=== PATIENT | male | born 1945 | race Caucasian/White ===

== ENCOUNTER 2016-06-16 19:57 | Inpatient (IN) | payer MEDICARE ==
[2016-06-16] MEDS ORDERED: RX INFO: IV CONTRAST WAS GIVEN 1 EACH MISC MISCELLANE PRN (20:21)
[2016-06-16] MEDS ORDERED: SODIUM CHLORIDE 0.9% 1,000 ML IV STA (20:21)
[2016-06-16] MEDS ORDERED: SODIUM CHLORIDE 0.9% 500 ML IV STA (20:21)
[2016-06-16 20:40] LABS: Anisocytosis Slight; Aty Lym Flag Slight; Basophils % (A) 1 %; CH 19.5; CHCM 27.5; Eosinophils # (A) 0.2 k/uL (0-0.7); Eosinophils % (A) 5 %; HCT 29.8 % (39.0-53.0); HDW 3.52; HGB 8.3 gm/dL (13.0-17.5); Hypochromasia Marked; Luc % (Auto) 5; Lymphocytes # (A) 1.1 k/uL (1.0-4.8); Lymphocytes % (A) 26 %; MCH 19.9 pg (25.0-35.0); MCV 71.3 fL (80.0-100.0); Mean Platelet Volume 7.9; Microcytosis Moderate; Monocytes # (A) 0.4 k/uL (0-1.0); Monocytes % (A) 9 %; Neutrophils # (A) 2.2 k/uL (1.3-7.7); Neutrophils % (A) 54 %; Poikilocytosis Slight; RBC 4.17 m/uL (4.30-5.90); RDW 17.1 % (11.5-15.5); WBC 4.1 k/uL (3.8-10.6); WBC (Perox) 4.36
[2016-06-16 20:43] LABS: MCHC 27.9 g/dL (31.0-37.0)
[2016-06-16 20:45] LABS: ALT 24 U/L (21-72); AST 17 U/L (17-59); Alkaline Phosphatase 64 U/L (38-126); Anion Gap 13 mmol/L; Blood Urea Nitrogen 19 mg/dL (9-20); Carbon Dioxide 24 mmol/L (22-30); Chloride 107 mmol/L (98-107); Glucose 86 mg/dL (74-99); Magnesium 2.1 mg/dL (1.6-2.3); Non-African American GFR(MDRD) >60 (>60 ml/min/1.73 sqM); Phosphorous 3.1 mg/dL (2.5-4.5); Sodium 144 mmol/L (137-145); Total Bilirubin 0.5 mg/dL (0.2-1.3); Total Protein 6.8 g/dL (6.3-8.2)
[2016-06-16 21:05] LABS: Creatine Kinase 39 U/L (55-170)
[2016-06-16 21:08] LABS: INR 1.3 (<1.1); Prothrombin Time 12.5 sec (9.0-12.0)
--- NOTE | 2016-06-16 21:15 | ED ---
General Adult HPI - General Chief complaint: Syncope Stated complaint: syncope Time Seen by Provider: 06/16/16 19:59 Source: EMS, RN notes reviewed, old records reviewed Mode of arrival: EMS Limitations: no limitations - History of Present Illness Initial comments: This is a 7-year-old male ER for evaluation of syncopal event. Syncopal week. This happened all patient was then grocery store, became shortness or breath back pain and then became very weak and passed out the ground. Did not completely lose consciousness not his had no trauma from fall. Patient is mildly out of it, patient take from family - Related Data Home Medications Medication Instructions Recorded Confirmed Cholecalciferol [Vitamin D3] 2,000 unit PO HS 01/03/16 06/16/16 Dutasteride [Avodart] 0.5 mg PO HS 01/03/16 06/16/16 Lisinopril [Zestril] 5 mg PO HS 01/03/16 06/16/16 Simvastatin [Zocor] 20 mg PO HS 01/03/16 06/16/16 L.acidoph,Paracasei, B.lactis 1 cap PO HS 06/16/16 06/16/16 [Probiotic] Lactulose 10 gm PO DAILY PRN 06/16/16 06/16/16 Allergies Allergy/AdvReac Type Severity Reaction Status Date / Time No Known Allergies Allergy Verified 06/16/16 20:23 Review of Systems ROS Statement: Those systems with pertinent positive or pertinent negative responses have been documented in the HPI. ROS Other: All systems not noted in ROS Statement are negative. Past Medical History Past Medical History: Hyperlipidemia, Hypertension Additional Past Medical History / Comment(s): chronic back pain History of Any Multi-Drug Resistant Organisms: None Reported Past Surgical History: No Surgical Hx Reported Past Psychological History: No Psychological Hx Reported Smoking Status: Never smoker Past Alcohol Use History: Rare Past Drug Use History: None Reported General Exam - General Exam Comments Initial Comments: Pale Limitations: no limitations General appearance: alert, in no apparent distress, anxious, lethargic Head exam: Present: atraumatic, normocephalic, normal inspection Eye exam: Present: normal appearance, PERRL, EOMI. Absent: scleral icterus, conjunctival injection, periorbital swelling ENT exam: Present: normal exam, mucous membranes moist Neck exam: Present: normal inspection. Absent: tenderness, meningismus, lymphadenopathy Respiratory exam: Present: normal lung sounds bilaterally. Absent: respiratory distress, wheezes, rales, rhonchi, stridor Cardiovascular Exam: Present: regular rate, normal rhythm, normal heart sounds. Absent: systolic murmur, diastolic murmur, rubs, gallop, clicks GI/Abdominal exam: Present: soft, normal bowel sounds. Absent: distended, tenderness, guarding, rebound, rigid Extremities exam: Present: normal inspection, full ROM, normal capillary refill. Absent: tenderness, pedal edema, joint swelling, calf tenderness Back exam: Present: normal inspection Neurological exam: Present: alert, oriented X3, CN II-XII intact Psychiatric exam: Present: normal affect, normal mood Skin exam: Present: warm, dry, intact, normal color. Absent: rash Course Vital Signs 06/16/16 06/16/16 20:13 22:20 Temperature 97.5 F L Pulse Rate 72 77 Respiratory 18 18 Rate Blood Pressure 103/62 168/79 O2 Sat by Pulse 94 L 100 Oximetry - Reevaluation(s) Reevaluation #1: 06/16/16 23:23 She has no significant improvement in clinical condition EKG Findings - EKG Comments: EKG Findings:: EKG shows sinus rhythm at 72, MI 13, QRS 78, QTC 405 Medical Decision Making - Medical Decision Making 7 emailed ER for evaluation of near syncopal syncopal event, patient had an episode of weakness and went to his feet while trying to walk in the store. Patient has history of weakness from recent, also found to be anemic, no blood in the stools, no dark tarry stools. Patient will be admitted for evaluation of anemia, syncope - Lab Data Result diagrams: 06/16/16 20:08 06/16/16 20:08 Lab Results 06/16/16 06/16/16 06/16/16 Range/Units 20:08 20:08 20:08 WBC 4.1 (3.8-10.6) k/uL RBC 4.17 L (4.30-5.90) m/uL Hgb 8.3 L (13.0-17.5) gm/dL Hct 29.8 L (39.0-53.0) % MCV 71.3 L (80.0-100.0) fL MCH 19.9 L (25.0-35.0) pg MCHC 27.9 L (31.0-37.0) g/dL RDW 17.1 H (11.5-15.5) % Plt Count 199 (150-450) k/uL Neutrophils % 54 % Lymphocytes % 26 % Monocytes % 9 % Eosinophils % 5 % Basophils % 1 % Neutrophils # 2.2 (1.3-7.7) k/uL Lymphocytes # 1.1 (1.0-4.8) k/uL Monocytes # 0.4 (0-1.0) k/uL Eosinophils # 0.2 (0-0.7) k/uL Basophils # 0.0 (0-0.2) k/uL Hypochromasia Marked Poikilocytosis Slight Anisocytosis Slight Microcytosis Moderate PT (9.0-12.0) sec INR (<1.1) APTT (22.0-30.0) sec D-Dimer (<0.60) mg/L FEU Sodium 144 (137-145) mmol/L Potassium 4.0 (3.5-5.1) mmol/L Chloride 107 (98-107) mmol/L Carbon Dioxide 24 (22-30) mmol/L Anion Gap 13 mmol/L BUN 19 (9-20) mg/dL Creatinine 0.90 (0.66-1.25) mg/dL Est GFR (MDRD) Af Amer >60 (>60 ml/min/1.73 sqM) Est GFR (MDRD) Non-Af >60 (>60 ml/min/1.73 sqM) Glucose 86 (74-99) mg/dL Calcium 9.0 (8.4-10.2) mg/dL Phosphorus 3.1 (2.5-4.5) mg/dL Magnesium 2.1 (1.6-2.3) mg/dL Total Bilirubin 0.5 (0.2-1.3) mg/dL AST 17 (17-59) U/L ALT 24 (21-72) U/L Alkaline Phosphatase 64 (38-126) U/L Total Creatine Kinase 39 L (55-170) U/L CK-MB (CK-2) 0.5 (0.0-2.4) ng/mL CK-MB (CK-2) Rel Index 1.3 Troponin I <0.012 (0.000-0.034) ng/mL NT-Pro-B Natriuret Pep pg/mL Total Protein 6.8 (6.3-8.2) g/dL Albumin 4.2 (3.5-5.0) g/dL Urine Color Urine Appearance (Clear) Urine pH (5.0-8.0) Ur Specific [place] (1.001-1.035) Urine Protein (Negative) Urine Glucose (UA) (Negative) Urine Ketones (Negative) Urine Blood (Negative) Urine Nitrate (Negative) Urine Bilirubin (Negative) Urine Urobilinogen (<2.0) mg/dL Ur Leukocyte Esterase (Negative) Blood Type Blood Type Confirm Blood Type Recheck Antibody Screen Spec Expiration Date 06/16/16 06/16/16 06/16/16 Range/Units 20:08 20:08 21:16 WBC (3.8-10.6) k/uL RBC (4.30-5.90) m/uL Hgb (13.0-17.5) gm/dL Hct (39.0-53.0) % MCV (80.0-100.0) fL MCH (25.0-35.0) pg MCHC (31.0-37.0) g/dL RDW (11.5-15.5) % Plt Count (150-450) k/uL Neutrophils % % Lymphocytes % % Monocytes % % Eosinophils % % Basophils % % Neutrophils # (1.3-7.7) k/uL Lymphocytes # (1.0-4.8) k/uL Monocytes # (0-1.0) k/uL Eosinophils # (0-0.7) k/uL Basophils # (0-0.2) k/uL Hypochromasia Poikilocytosis Anisocytosis Microcytosis PT 12.5 H (9.0-12.0) sec INR 1.3 (<1.1) APTT 20.1 L (22.0-30.0) sec D-Dimer 0.43 (<0.60) mg/L FEU Sodium (137-145) mmol/L Potassium (3.5-5.1) mmol/L Chloride (98-107) mmol/L Carbon Dioxide (22-30) mmol/L Anion Gap mmol/L BUN (9-20) mg/dL Creatinine (0.66-1.25) mg/dL Est GFR (MDRD) Af Amer (>60 ml/min/1.73 sqM) Est GFR (MDRD) Non-Af (>60 ml/min/1.73 sqM) Glucose (74-99) mg/dL Calcium (8.4-10.2) mg/dL Phosphorus (2.5-4.5) mg/dL Magnesium (1.6-2.3) mg/dL Total Bilirubin (0.2-1.3) mg/dL AST (17-59) U/L ALT (21-72) U/L Alkaline Phosphatase (38-126) U/L Total Creatine Kinase (55-170) U/L CK-MB (CK-2) (0.0-2.4) ng/mL CK-MB (CK-2) Rel Index Troponin I (0.000-0.034) ng/mL NT-Pro-B Natriuret Pep 78 pg/mL Total Protein (6.3-8.2) g/dL Albumin (3.5-5.0) g/dL Urine Color Urine Appearance (Clear) Urine pH (5.0-8.0) Ur Specific [place] (1.001-1.035) Urine Protein (Negative) Urine Glucose (UA) (Negative) Urine Ketones (Negative) Urine Blood (Negative) Urine Nitrate (Negative) Urine Bilirubin (Negative) Urine Urobilinogen (<2.0) mg/dL Ur Leukocyte Esterase (Negative) Blood Type A Positive Blood Type Confirm Blood Type Recheck CABO Indicated Antibody Screen NEGATIVE Spec Expiration Date 06/19/2016 3843 06/16/16 06/16/16 Range/Units 22:04 22:18 WBC (3.8-10.6) k/uL RBC (4.30-5.90) m/uL Hgb (13.0-17.5) gm/dL Hct (39.0-53.0) % MCV (80.0-100.0) fL MCH (25.0-35.0) pg MCHC (31.0-37.0) g/dL RDW (11.5-15.5) % Plt Count (150-450) k/uL Neutrophils % % Lymphocytes % % Monocytes % % Eosinophils % % Basophils % % Neutrophils # (1.3-7.7) k/uL Lymphocytes # (1.0-4.8) k/uL Monocytes # (0-1.0) k/uL Eosinophils # (0-0.7) k/uL Basophils # (0-0.2) k/uL Hypochromasia Poikilocytosis Anisocytosis Microcytosis PT (9.0-12.0) sec INR (<1.1) APTT (22.0-30.0) sec D-Dimer (<0.60) mg/L FEU Sodium (137-145) mmol/L Potassium (3.5-5.1) mmol/L Chloride (98-107) mmol/L Carbon Dioxide (22-30) mmol/L Anion Gap mmol/L BUN (9-20) mg/dL Creatinine (0.66-1.25) mg/dL Est GFR (MDRD) Af Amer (>60 ml/min/1.73 sqM) Est GFR (MDRD) Non-Af (>60 ml/min/1.73 sqM) Glucose (74-99) mg/dL Calcium (8.4-10.2) mg/dL Phosphorus (2.5-4.5) mg/dL Magnesium (1.6-2.3) mg/dL Total Bilirubin (0.2-1.3) mg/dL AST (17-59) U/L ALT (21-72) U/L Alkaline Phosphatase (38-126) U/L Total Creatine Kinase (55-170) U/L CK-MB (CK-2) (0.0-2.4) ng/mL CK-MB (CK-2) Rel Index Troponin I (0.000-0.034) ng/mL NT-Pro-B Natriuret Pep pg/mL Total Protein (6.3-8.2) g/dL Albumin (3.5-5.0) g/dL Urine Color Yellow Urine Appearance Clear (Clear) Urine pH 7.5 (5.0-8.0) Ur Specific [place] 1.029 (1.001-1.035) Urine Protein Trace H (Negative) Urine Glucose (UA) Negative (Negative) Urine Ketones Negative (Negative) Urine Blood Negative (Negative) Urine Nitrate Negative (Negative) Urine Bilirubin Negative (Negative) Urine Urobilinogen <2.0 (<2.0) mg/dL Ur Leukocyte Esterase Negative (Negative) Blood Type Blood Type Confirm A Positive Blood Type Recheck Antibody Screen Spec Expiration Date - Radiology Data Radiology results: report reviewed (CTa negative for PE), image reviewed Disposition Clinical Impression: Vasovagal syncope, Anemia Disposition: ADMITTED IP TO THIS [facility] Condition: Fair Referrals: Angle Muniz DO [Primary Care Provider] - 1-2 days
[2016-06-16 21:17] LABS: Creatine Kinase MB 0.5 ng/mL (0.0-2.4); Troponin I <0.012 ng/mL (0.000-0.034)
[2016-06-16 21:21] LABS: Partial Thromboplastin Time 20.1 sec (22.0-30.0)
--- NOTE | 2016-06-16 22:12 | CT ---
EXAMINATION TYPE: CT angio chest DATE OF EXAM: 06/16/2016 9:48 PM COMPARISON: NONE HISTORY: weakness CT DLP: 380.5 mGycm Automated exposure control for dose reduction was used. CONTRAST: CTA scan of the thorax is performed with IV Contrast, patient injected with 100 mL of Omnipaque 350, pulmonary embolism protocol. . FINDINGS: There are 3-D post processed images. The lungs are clear of consolidation. There is no evidence of a pulmonary mass. There is no pleural e ffusion. Heart is enlarged. There is no pericardial effusion. There is no mediastinal adenopathy. There are no hilar masses. I see no filling defects in the pulmon olena arteries. The bony thorax is intact. There is spurring in the thoracic spine. IMPRESSION: NEGATIVE CT ANGIOGRAM OF THE CHEST. NO EVIDENCE OF PULMONARY EMBOLISM. NO EVIDENCE OF AORTIC ANEURYSM OR DISSECTION.
[2016-06-16 22:29] LABS: Appearance,Urine Clear (Clear); Bilirubin,Urine Negative (Negative); Glucose,Urine (UA) Negative (Negative); Ketones,Urine Negative (Negative); Leukocyte Esterase,Urine Negative (Negative); Nitrite,Urine Negative (Negative); PH, Urine 7.5 (5.0-8.0); Protein,Urine Trace (Negative); Specific Gravity,Urine 1.029 (1.001-1.035); UA Billing (MACRO vs. MICRO) CHEM; Urobilinogen,Urine <2.0 mg/dL (<2.0)
[2016-06-16] MEDS ORDERED: ASPIRIN 81 MG CHEW PO STA (23:12)
[2016-06-16] MEDS ORDERED: NITROGLYCERIN SL TABS 0.4 MG TAB SUBLINGUAL PRN (23:12)
[2016-06-17] MEDS: SODIUM CHLORIDE 0.9% 1,000 ML IV SCH ×3 (03:00→22:18)
[2016-06-17 03:25] LABS: Cholesterol 119 mg/dL (<200); HDL Cholesterol 39 mg/dL (40-60); Triglycerides 95 mg/dL (<150)
[2016-06-17 03:32] LABS: Creatine Kinase 38 U/L (55-170)
[2016-06-17 03:38] LABS: % Iron Saturation 7.6 % (20-50)
[2016-06-17 03:46] LABS: Creatine Kinase MB 0.5 ng/mL (0.0-2.4); Troponin I <0.012 ng/mL (0.000-0.034)
[2016-06-17] MEDS ORDERED: INFLUENZA VACCINE (3YR+) 60 MCG/0.5 ML SYRINGE IM ONE (05:31)
[2016-06-17] MEDS ORDERED: LACTULOSE 20 GM/30 ML CUP PO PRN (08:41)
[2016-06-17 08:53] LABS: Anisocytosis Slight; Basophils % (A) 1 %; CH 19.4; Eosinophils # (A) 0.2 k/uL (0-0.7); Eosinophils % (A) 4 %; HCT 27.4 % (39.0-53.0); HDW 3.35; HGB 7.6 gm/dL (13.0-17.5); Hypochromasia Marked; Luc # (Auto) 0.15; Luc % (Auto) 3; Lymphocytes # (A) 1.2 k/uL (1.0-4.8); Lymphocytes % (A) 23 %; MCV 72.3 fL (80.0-100.0); Mean Platelet Volume 7.2; Microcytosis Moderate; Monocytes # (A) 0.4 k/uL (0-1.0); Monocytes % (A) 7 %; Neutrophils # (A) 3.3 k/uL (1.3-7.7); Neutrophils % (A) 63 %; RBC 3.79 m/uL (4.30-5.90); WBC 5.3 k/uL (3.8-10.6); WBC (Perox) 5.68
[2016-06-17 09:00] LABS: MCHC 27.6 g/dL (31.0-37.0)
[2016-06-17] MEDS ORDERED: ENOXAPARIN 40 MG/0.4 ML SYRINGE SQ SCH (09:00)
[2016-06-17] MEDS: ASPIRIN 325 MG TAB PO SCH (09:05)
[2016-06-17 09:08] LABS: ALT 29 U/L (21-72); AST 12 U/L (17-59); Alkaline Phosphatase 63 U/L (38-126); Anion Gap 12 mmol/L; Blood Urea Nitrogen 15 mg/dL (9-20); Calcium 8.8 mg/dL (8.4-10.2); Carbon Dioxide 23 mmol/L (22-30); Chloride 110 mmol/L (98-107); Creatine Kinase 39 U/L (55-170); Glucose 107 mg/dL (74-99); Non-African American GFR(MDRD) >60 (>60 ml/min/1.73 sqM); Sodium 145 mmol/L (137-145); Total Bilirubin 0.3 mg/dL (0.2-1.3); Total Protein 6.1 g/dL (6.3-8.2)
[2016-06-17 09:18] LABS: Creatine Kinase MB 0.5 ng/mL (0.0-2.4); Troponin I <0.012 ng/mL (0.000-0.034)
--- NOTE | 2016-06-17 11:06 | P.HPIM ---
History of Present Illness H&P Date: 06/17/16 Chief Complaint: Near syncopal episode This is a 70-year-old male, patient of Dr. Muniz. He has a known past medical history of hypertension and hyperlipidemia. Yesterday patient was at the grocery store and noted to have significant fatigue and some difficulty with walking. He proceeded to the vestibule area at the grocery store landing answer wall and slid down to a sitting position. He felt that he was going to pass out. Patient did not lose consciousness. Did not have any head injury. Did not hit his head. Denies any chest pain or shortness of breath. Denies any nausea or vomiting. Denies any bowel movement changes. Denies any fevers chills or sweats. Denies any burning with urination prior to admission. Patient was straight cathed in the emergency room to acquire urine specimen. And since then he has noted some burning with urination. On admission he was found to be anemic with a hemoglobin of 8.3. This has dropped to 7.6. He denies any black stools or blood in his stools. He does admit to having issues with constipation and taking medications to help alleviate this and then Coumadin to diarrhea. Patient states he'll go about 3-4 days without a bowel movement. Last colonoscopy was about 3 years ago and was reported normal. Prior to that he had colonoscopy with polyps that were benign. Patient's has never had EGD. Patient's symptoms of fatigue and generalized weakness and unsteady gait have been noticed since December. Patient's gave a lot of the history noting that patient sleeps majority of the day and is very fatigued. She also noted that he has some shuffling and his gait. Patient had a CTA of the chest was negative for PE. EKG is showing sinus rhythm with PVCs. Family history significant for a mom and sister with pernicious anemia. Also he has a brother with history of Parkinson's disease. Patient has been admitted to the regular medical floor for his workup in anemia. Surgical consult for possible colonoscopy. Check stool for occult blood. Patient also was found to be iron deficient. We'll check echo and carotid and rule out any cardiac causes for near syncopal episode. Review of Systems Please refer to HPI otherwise unremarkable Past Medical History Past Medical History: Hyperlipidemia, Hypertension Additional Past Medical History / Comment(s): chronic back pain; cortisone injections for neck pain History of Any Multi-Drug Resistant Organisms: None Reported Past Surgical History: No Surgical Hx Reported Past Psychological History: No Psychological Hx Reported Smoking Status: Never smoker Past Alcohol Use History: Rare Past Drug Use History: None Reported - Past Family History Father Family Medical History: Myocardial Infarction (MD) Mother Additional Family Medical History / Comment(s): Pernicious anemia monitor and sister. Brother with Parkinson's Medications and Allergies Home Medications Medication Instructions Recorded Confirmed Type Cholecalciferol [Vitamin D3] 2,000 unit PO HS 01/03/16 06/16/16 History Dutasteride [Avodart] 0.5 mg PO HS 01/03/16 06/16/16 History Lisinopril [Zestril] 5 mg PO HS 01/03/16 06/16/16 History Simvastatin [Zocor] 20 mg PO HS 01/03/16 06/16/16 History L.acidoph,Paracasei, B.lactis 1 cap PO HS 06/16/16 06/16/16 History [Probiotic] Lactulose 10 gm PO DAILY PRN 06/16/16 06/16/16 History Allergies Allergy/AdvReac Type Severity Reaction Status Date / Time No Known Allergies Allergy Verified 06/16/16 20:23 Physical Exam Vitals: Vital Signs Temp Pulse Pulse Pulse Resp BP BP 06/17/16 07:00 98.1 F 70 20 06/17/16 00:54 97.8 F 68 18 137/85 06/16/16 23:59 68 16 144/67 BP Pulse Ox 06/17/16 07:00 134/71 97 06/17/16 00:54 100 06/16/16 23:59 96 Intake and Output 06/16/16 06/17/16 06/17/16 22:59 06:59 14:59 Intake Total 400 Balance 400 Intake: Intake, IV Titration 400 Amount Sodium Chloride 0.9% 1, 400 000 ml @ 100 mls/hr IV . Q10H [facility] Rx#:[id number] Other: Voiding Method Bedside Commode # Voids 1 # Bowel Movements 0 Weight 87 kg Skin exam patient is very pale. Head normocephalic Neck supple Lungs clear to auscultation bilaterally no wheezing or crackles Heart regular rate and rhythm S1-S2, no rub or gallop Abdomen is soft nontender nondistended positive bowel sounds no hepatosplenomegaly Extremities no edema Neuro alert and orientated to 3 Results CBC & Chem 7: 06/17/16 08:22 06/17/16 08:22 Labs: Abnormal Lab Results - Last 24 Hours (Table) 06/17/16 06/17/16 06/17/16 Range/Units 02:32 02:32 08:22 RBC (4.30-5.90) m/uL Hgb (13.0-17.5) gm/dL Hct (39.0-53.0) % MCV (80.0-100.0) fL MCH (25.0-35.0) pg MCHC (31.0-37.0) g/dL RDW (11.5-15.5) % Chloride (98-107) mmol/L Glucose (74-99) mg/dL AST (17-59) U/L Total Creatine Kinase 38 L 39 L (55-170) U/L Total Protein (6.3-8.2) g/dL HDL Cholesterol 39 L (40-60) mg/dL 06/17/16 06/17/16 Range/Units 08:22 08:22 RBC 3.79 L (4.30-5.90) m/uL Hgb 7.6 L (13.0-17.5) gm/dL Hct 27.4 L (39.0-53.0) % MCV 72.3 L (80.0-100.0) fL MCH 20.0 L (25.0-35.0) pg MCHC 27.6 L (31.0-37.0) g/dL RDW 17.0 H (11.5-15.5) % Chloride 110 H (98-107) mmol/L Glucose 107 H (74-99) mg/dL AST 12 L (17-59) U/L Total Creatine Kinase (55-170) U/L Total Protein 6.1 L (6.3-8.2) g/dL HDL Cholesterol (40-60) mg/dL Thrombosis Risk Factor Assmnt - Choose All That Apply Any of the Below Risk Factors Present?: Yes Each Factor Represents 1 point: Obesity (BMI >25) Other Risk Factors: Yes Each Risk Factor Represents 2 Points: Age 61-74 years Thrombosis Risk Factor Assessment Total Risk Factor Score: 3 Thrombosis Risk Factor Assessment Level: Moderate Risk Assessment and Plan Plan: 1. Near syncopal episode with fatigue and generalized weakness. Possibly related to his anemia however need to rule out cardiac causes. Continue with telemetry monitoring. Check echo and carotid ultrasound. EKG had shown sinus rhythm with PVCs. Computed tomography scan of the chest was negative for PE. 2. Anemia with evidence of iron deficiency anemia. Hemoglobin has dropped to 7.6. Check stool for occult blood. Consult surgical service for possible colonoscopy 3. Burning with urination check UA 4. Essential hypertension we'll resume his lisinopril 5. History of BPH continue with the finasteride 6. Hyperlipidemia resume Lipitor DVT prophylaxis SCDs and GI prophylaxis Pepcid Time with Patient: Greater than 30 (Greater than 50% of the total time spent in counseling and coordination of care.I performed an examination of the patient and discussed their management with the physician Strip Mine Supervisor. I have reviewed the Physician Strip Mine Supervisor's notes and agree with the documented findings and plan of care)
--- NOTE | 2016-06-17 11:49 | ECHOF ---
Referral Reason:syncope MEASUREMENTS -------- HEIGHT: 170.2 cm WEIGHT: 86.6 kg BP: 134/71 RVIDd: 3.0 cm (< 3.3) IVSd: 1.5 cm (0.6 - 1.1) LVIDd: 3.6 cm (3.9 - 5.3) LVPWd: 1.3 cm (0.6 - 1.1) IVSs: 1.9 cm LVIDs: 2.7 cm LVPWs: 2.0 cm LA Diam: 3.6 cm (2.7 - 3.8) LAESV Index (A-L): 21.69 ml/m Ao Diam: 2.6 cm (2.0 - 3.7) AV Cusp: 1.6 cm (1.5 - 2.6) LA Diam: 3.4 cm (2.7 - 3.8) MV EXCURSION: 15.965 mm (> 18.000) MV EF SLOPE: 74 mm/s (70 - 150) EPSS: 0.2 cm MV E [place]: 0.94 m/s MV DecT: 204 ms MV A [place]: 1.03 m/s MV E/A Ratio: 0.91 FINDINGS -------- Sinus rhythm. This was a technically good study. There is moderate concentric left ventricular hypertrophy. Overall left ventricular systolic function is normal with, an EF between 55 - 60 %. The right ventricle is normal in size. Normal LA size by volume 22+/-6 ml/m2. The right atrium is normal in size. Aortic valve is trileaflet and is mildly thickened. Mild mitral annular calcification present. Trace tricuspid regurgitation present. Right ventricular systolic pressure is normal at < 35 mmHg. The aortic root size is normal. There is no pericardial effusion. CONCLUSIONS -------- 1. Sinus rhythm. 2. Trace tricuspid regurgitation present. 3. Right ventricular systolic pressure is normal at < 35 mmHg. 4. The aortic root size is normal. 5. There is no pericardial effusion. 6. This was a technically good study. 7. There is moderate concentric left ventricular hypertrophy. 8. Overall left ventricular systolic function is normal with, an EF between 55 - 60 %. 9. The right ventricle is normal in size. 10. Normal LA size by volume 22+/-6 ml/m2. 11. The right atrium is normal in size. 12. Aortic valve is trileaflet and is mildly thickened. 13. Mild mitral annular calcification present. CHEMISTRY PROFESSOR: Kishan Mathis RDCS
[2016-06-17] MEDS ORDERED: RX INFO: IV CONTRAST WAS GIVEN 1 EACH MISC MISCELLANE PRN (13:35)
--- NOTE | 2016-06-17 13:59 | US ---
EXAMINATION TYPE: US carotid duplex BILAT DATE OF EXAM: 06/17/2016 11:38 AM COMPARISON: NONE CLINICAL HISTORY: syncope. EXAM MEASUREMENTS: RIGHT: Peak Systolic Velocity (PSV) cm/sec ----- Right CCA: 65.8 ----- Right ICA: 80.1 ----- Right ECA: 109.5 ICA/CCA ratio: 1.2 RIGHT: End Diastole cm/sec ----- Right CCA: 18.1 ----- Right ICA: 21.7 ----- Right ECA: 12.4 LEFT: Peak Systolic Velocity (PSV) cm/sec ----- Left CCA: 106.3 ----- Left ICA: 72.8 ----- Left ECA: 72.3 ICA/CCA ratio: 0.7 LEFT: End Diastole cm/sec ----- Left CCA: 22.2 ----- Left ICA: 19.2 ----- Left ECA: 8.5 VERTEBRALS (direction of flow): Right Vertebral: Antegrade Left Vertebral: Antegrade TECHNOLOGIST IMPRESSION: No significant stenosis seen IMPRESSION: No hemodynamic significant stenosis of the proximal internal carotid arteries bilaterall y by Doppler criteria, and indirect measurement of carotid stenosis
[2016-06-17] MEDS ORDERED: SODIUM FERRIC GLUCONAT-SUCROSE 125 MG in SODIUM CHLORIDE 0.9% 100 ML IVPB ONE (14:00)
--- NOTE | 2016-06-17 15:56 | P.GSCN ---
History of Present Illness Consult date: 06/17/16 Reason for Consult: Anemia Requesting physician: Romana Camarena History of present illness: Patient is 70-year-old male, patient of Dr. Muniz in the outpatient setting admitted with symptoms of fatigue and near syncope. On admission patient's hemoglobin was found to be 8.3 dropped to 7.6. No history of melena, hematochezia, or hematemesis. Last colonoscopy approximately 3 years ago reported normal. No history of EGD. Surgical consult requested for anemia. Past Medical History Past Medical History: Hyperlipidemia, Hypertension Additional Past Medical History / Comment(s): chronic back pain; cortisone injections for neck pain History of Any Multi-Drug Resistant Organisms: None Reported Past Surgical History: No Surgical Hx Reported Past Psychological History: No Psychological Hx Reported Smoking Status: Never smoker Past Alcohol Use History: Rare Past Drug Use History: None Reported - Past Family History Father Family Medical History: Myocardial Infarction ([place]) Mother Additional Family Medical History / Comment(s): Pernicious anemia monitor and sister. Brother with Parkinson's Medications and Allergies Home Medications Medication Instructions Recorded Confirmed Type Cholecalciferol [Vitamin D3] 2,000 unit PO HS 01/03/16 06/16/16 History Dutasteride [Avodart] 0.5 mg PO HS 01/03/16 06/16/16 History Lisinopril [Zestril] 5 mg PO HS 01/03/16 06/16/16 History Simvastatin [Zocor] 20 mg PO HS 01/03/16 06/16/16 History L.acidoph,Paracasei, B.lactis 1 cap PO HS 06/16/16 06/16/16 History [Probiotic] Lactulose 10 gm PO DAILY PRN 06/16/16 06/16/16 History Allergies Allergy/AdvReac Type Severity Reaction Status Date / Time No Known Allergies Allergy Verified 06/16/16 20:23 Surgical - Exam Vital Signs Temp Pulse Resp BP Pulse Ox 97.5 F L 72 18 103/62 94 L 06/16/16 20:13 06/16/16 20:13 06/16/16 20:13 06/16/16 20:13 06/16/16 20:13 GENERAL: Pt awake and alert, and in no acute distress. HEAD: Atraumatic, normocephalic. LUNGS: Breath sounds clear to auscultation bilaterally. No wheezes, rales, or rhonchi. HEART: Heart S1, S2, no S3 or S4. Regular rate and rhythm. No murmurs, rubs or gallops. ABDOMEN: Soft, obese, nontender, nondistended, normoactive bowel sounds. No guarding, no rebound. No masses or organomegaly appreciated. NEUROLOGICAL: Pt oriented x 3. Results - Labs 06/17/16 08:22 06/17/16 08:22 Abnormal Lab Results - Last 24 Hours (Table) 06/17/16 06/17/16 06/17/16 Range/Units 02:32 02:32 08:22 RBC (4.30-5.90) m/uL Hgb (13.0-17.5) gm/dL Hct (39.0-53.0) % MCV (80.0-100.0) fL MCH (25.0-35.0) pg MCHC (31.0-37.0) g/dL RDW (11.5-15.5) % Chloride (98-107) mmol/L Glucose (74-99) mg/dL AST (17-59) U/L Total Creatine Kinase 38 L 39 L (55-170) U/L Total Protein (6.3-8.2) g/dL HDL Cholesterol 39 L (40-60) mg/dL 06/17/16 06/17/16 Range/Units 08:22 08:22 RBC 3.79 L (4.30-5.90) m/uL Hgb 7.6 L (13.0-17.5) gm/dL Hct 27.4 L (39.0-53.0) % MCV 72.3 L (80.0-100.0) fL MCH 20.0 L (25.0-35.0) pg MCHC 27.6 L (31.0-37.0) g/dL RDW 17.0 H (11.5-15.5) % Chloride 110 H (98-107) mmol/L Glucose 107 H (74-99) mg/dL AST 12 L (17-59) U/L Total Creatine Kinase (55-170) U/L Total Protein 6.1 L (6.3-8.2) g/dL HDL Cholesterol (40-60) mg/dL Diabetes panel 06/17/16 06/17/16 Range/Units 02:32 08:22 Sodium 145 (137-145) mmol/L Potassium 4.0 (3.5-5.1) mmol/L Chloride 110 H (98-107) mmol/L Carbon Dioxide 23 (22-30) mmol/L BUN 15 (9-20) mg/dL Creatinine 0.73 (0.66-1.25) mg/dL Glucose 107 H (74-99) mg/dL Calcium 8.8 (8.4-10.2) mg/dL AST 12 L (17-59) U/L ALT 29 (21-72) U/L Alkaline Phosphatase 63 (38-126) U/L Total Protein 6.1 L (6.3-8.2) g/dL Albumin 3.6 (3.5-5.0) g/dL Triglycerides 95 (<150) mg/dL HDL Cholesterol 39 L (40-60) mg/dL Calcium panel 06/17/16 Range/Units 08:22 Calcium 8.8 (8.4-10.2) mg/dL Albumin 3.6 (3.5-5.0) g/dL Pituitary panel 06/17/16 Range/Units 08:22 Sodium 145 (137-145) mmol/L Potassium 4.0 (3.5-5.1) mmol/L Chloride 110 H (98-107) mmol/L Carbon Dioxide 23 (22-30) mmol/L BUN 15 (9-20) mg/dL Creatinine 0.73 (0.66-1.25) mg/dL Glucose 107 H (74-99) mg/dL Calcium 8.8 (8.4-10.2) mg/dL Adrenal panel 06/17/16 Range/Units 08:22 Sodium 145 (137-145) mmol/L Potassium 4.0 (3.5-5.1) mmol/L Chloride 110 H (98-107) mmol/L Carbon Dioxide 23 (22-30) mmol/L BUN 15 (9-20) mg/dL Creatinine 0.73 (0.66-1.25) mg/dL Glucose 107 H (74-99) mg/dL Calcium 8.8 (8.4-10.2) mg/dL Total Bilirubin 0.3 (0.2-1.3) mg/dL AST 12 L (17-59) U/L ALT 29 (21-72) U/L Alkaline Phosphatase 63 (38-126) U/L Total Protein 6.1 L (6.3-8.2) g/dL Albumin 3.6 (3.5-5.0) g/dL Assessment and Plan Plan: Impression: 1. Anemia. Hemoglobin 7.6 from 8.3 upon admission. Plan: 1. Patient will undergo EGD and colonoscopy on Monday. Patient can have clear liquids on Monday. Patient will be kept nothing by mouth after midnight on Monday. Bowel prep will be started on Monday. Continue to monitor patient. Continue to follow the medical team. The above impression and plan have been discussed and directed by Dr. Truong. Yuval MINA acting as scribe for Dr. Truong.
--- NOTE | 2016-06-17 22:10 | CT ---
EXAMINATION TYPE: CT brain wo/w con DATE OF EXAM: 06/17/2016 10:01 PM COMPARISON: NONE HISTORY: R/O possible stroke. Slurred speech. CT DLP: 2166 mGycm Automated exposure control for dose reduction was used. CONTRAST: CT scan of the head is performed with IV Contrast, patient injected with 100 mL of Omnipaque 300. FINDINGS: There is patchy hypodensity in the periventricular white matter. There is cerebral cortical atrophy. There is no mass effect nor midline shift. There is no sign of intracranial hemorrhage. The calvarium is intact. IMPRESSION: Cerebral atrophy and chronic small vessel ischemia. No acute intracranial abnormality.
[2016-06-17] MEDS: CHOLECALCIFEROL 1,000 UNIT TAB PO SCH (22:14)
[2016-06-17] MEDS: LISINOPRIL 5 MG TAB PO SCH (22:15)
[2016-06-17] MEDS: LACTOBACILLUS ACIDOPH & BULGAR 1 EACH PACKET PO SCH (22:15)
[2016-06-17] MEDS: ATORVASTATIN 10 MG TAB PO SCH (22:15)
[2016-06-17] MEDS: FINASTERIDE 5 MG TAB PO SCH (22:15)
[2016-06-18] MEDS: SODIUM CHLORIDE 0.9% 1,000 ML IV SCH ×2 (04:13→16:04)
[2016-06-18] MEDS: ASPIRIN 325 MG TAB PO SCH (08:01)
[2016-06-18] MEDS: FAMOTIDINE 20 MG TAB PO SCH (08:01)
[2016-06-18 08:24] LABS: Appearance,Urine Clear (Clear); Bilirubin,Urine Negative (Negative); Glucose,Urine (UA) Negative (Negative); Ketones,Urine Negative (Negative); Leukocyte Esterase,Urine Negative (Negative); Nitrite,Urine Negative (Negative); Protein,Urine Negative (Negative); UA Billing (MACRO vs. MICRO) CHEM; Urobilinogen,Urine <2.0 mg/dL (<2.0)
--- NOTE | 2016-06-18 10:21 | P.PN ---
Progress Note - Text Patient is stable. Was admitted with anemia. Syncopal episode. No active bleeding that he has noted. Did have a colonoscopy by myself the case above for 5 years ago. On examination patient is awake alert stable pale. Abdomen is soft and benign. Impression anemia. Recommendation scheduled for EGD and colonoscopy are now Monday.
[2016-06-18 11:11] LABS: ALT 29 U/L (21-72); AST 15 U/L (17-59); Alkaline Phosphatase 57 U/L (38-126); Anion Gap 11 mmol/L; Blood Urea Nitrogen 11 mg/dL (9-20); Calcium 9.4 mg/dL (8.4-10.2); Carbon Dioxide 26 mmol/L (22-30); Chloride 108 mmol/L (98-107); Glucose 119 mg/dL (74-99); Non-African American GFR(MDRD) >60 (>60 ml/min/1.73 sqM); Potassium 3.9 mmol/L (3.5-5.1); Sodium 145 mmol/L (137-145); Total Bilirubin 0.4 mg/dL (0.2-1.3); Total Protein 6.4 g/dL (6.3-8.2)
[2016-06-18 11:39] LABS: Anisocytosis Slight; Basophils # (A) 0.1 k/uL (0-0.2); Basophils % (A) 1 %; CH 19.9; CHCM 28.1; Eosinophils # (A) 0.2 k/uL (0-0.7); Eosinophils % (A) 3 %; HCT 26.8 % (39.0-53.0); HGB 7.3 gm/dL (13.0-17.5); Hypochromasia Marked; Luc # (Auto) 0.06; Luc % (Auto) 1; Lymphocytes % (A) 21 %; MCH 19.6 pg (25.0-35.0); MCV 71.5 fL (80.0-100.0); Microcytosis Moderate; Monocytes # (A) 0.4 k/uL (0-1.0); Monocytes % (A) 8 %; Neutrophils # (A) 3.2 k/uL (1.3-7.7); Neutrophils % (A) 66 %; Poikilocytosis Slight; RBC 3.75 m/uL (4.30-5.90); WBC 4.9 k/uL (3.8-10.6); WBC (Perox) 5.09
[2016-06-18 11:41] LABS: MCHC 27.4 g/dL (31.0-37.0)
--- NOTE | 2016-06-18 11:46 | P.PN ---
Subjective 70-year-old male being seen on rounds this morning. Patient is sitting up on the edge of the bed denies any dizziness lightheadedness chest pain or shortness of breath. Hemoglobin 7.6. On June 17. The admitting hemoglobin 8.3. Patient did receive a unit of IV iron. Patient is scheduled on Monday for a EGD and a colonoscopy as part of a workup for the anemia per surgical service patient states he did have 2 bowel movements this morning they were brown the was no blood noted in the stool physical therapy at the bedside. Patient is being evaluated for an unsteady shuffling gait with a history of falls chief complaint this morning "tired out. Objective - Vital Signs Vital signs: Vital Signs Temp 98.6 F 06/18/16 07:00 Pulse 64 06/18/16 07:00 Resp 19 06/18/16 07:00 BP 151/72 06/18/16 07:00 Pulse Ox 96 06/18/16 07:00 Intake & Output 06/17/16 06/18/16 06/18/16 18:59 06:59 18:59 Intake Total 100 Balance 100 Intake: Oral 100 Other: Voiding Method Bedside Commode Urinal # Voids 2 3 # Bowel Movements 1 1 - Exam GENERAL APPEARANCE: 70-year-old male patient is alert, oriented, in no acute distress sitting up on the edge of the bed reports no dizziness lightheadedness no chest pain or shortness of breath. VITAL SIGNS: Reviewed HEENT: Head is normocephalic and atraumatic. Pupils are equal and reactive. The nares are patent. Oropharynx is clear without lesions. NECK: Supple without lymphadenopathy. Traches midline. HEART: S1, S2. Regular rate and rhythm. LUNGS: No crackles or wheezes are heard. Diminished at the bases otherwise adequate air movement sats are 96% on room air ABDOMEN: Soft, nontender, nondistended with good bowel sounds. No peritoneal signs. No palpable organomegaly or masses no hematemesis no melena. EXTREMITIES: Normal skin color and turgor. No cyanosis, rash, ulceration, clubbing or edema. Radial pedal pulses are 2/4 bilaterally. NEUROLOGICAL: No focal deficits. Strength and sensation are grossly intact. - Labs CBC & Chem 7: 06/17/16 08:22 06/18/16 10:37 Labs: Abnormal Lab Results - Last 24 Hours (Table) 06/18/16 Range/Units 10:37 Chloride 108 H (98-107) mmol/L Glucose 119 H (74-99) mg/dL AST 15 L (17-59) U/L Assessment and Plan Plan: Impression Present on admission near-syncopal episode suspect due to anemia History of increased fatigue generalized weakness suspect due to anemia Anemia with evidence of iron deficiency Essential hypertension History of BPH Hyperlipidemia Echocardiogram the 17 of June left contiguous systolic function normal EF attending 55 and 60% Bilateral carotid Doppler showed no hemodynamic significant stenosis Present on admission shuffling I unsteady gait with a history of falls Plan Await neurology eval PT OT eval with fall precautions Check labs in the morning attempt keep the hemoglobin greater than 7.5 Scheduled for an EGD and a colonoscopy by surgical service on Monday bowel prep will be initiated as ordered Monitor blood pressure heart rate will address as indicated DVT and GI prophylaxis Further recommendations pending will follow The above dictated assessment and findings were discussed with dr stone Impression and the plan of care have been dictated as directed. Paula Garrett nurse practitioner acting as a scribe for dr wynn
[2016-06-18] MEDS: PANTOPRAZOLE 40 MG/10 ML VIAL IVP SCH (12:04)
--- NOTE | 2016-06-18 14:32 | P.PN ---
Progress Note - Text Patient seen and examined by myself full note dictated by nurse practioner working with me today Paula Garrett NP
[2016-06-18] MEDS: CHOLECALCIFEROL 1,000 UNIT TAB PO SCH (20:30)
[2016-06-18] MEDS: LISINOPRIL 5 MG TAB PO SCH (20:30)
[2016-06-18] MEDS: FINASTERIDE 5 MG TAB PO SCH (20:30)
[2016-06-18] MEDS: LACTOBACILLUS ACIDOPH & BULGAR 1 EACH PACKET PO SCH (20:30)
[2016-06-18] MEDS: ATORVASTATIN 10 MG TAB PO SCH (20:30)
--- NOTE | 2016-06-19 01:20 | P.CNNES ---
History of Present Illness Consult date: 06/18/16 Requesting physician: Marilia Deleon Reason for Consult: slurred speech and falls Chief complaint: slurred speech and falls History of Present Illness: Patient is a 70-year-old male that was seen in the ED for syncopal episode. Patient was ambulating in the grocery store when he became short of breath and then became very weak and passed out to the ground. Patient did not completely lose consciousness nor did he sustain any trauma from the fall. Patient has not had any prior occurrence of this type of event. Patient states that since approximately December 2015, he has been experiencing increased fatigue, excessive desire to sleep, snoring and sleeping. Patient denies memory decline , diplopia, urgency for urination, balance or gait related issues or depression. Patient does have a family history that is positive for anemia in both his mother and sister. Anemia was related to vitamin B12 deficiency. He does have a brother that did have multiple sclerosis with an onset of age 30. Patient has had diagnostic testing since arrival in the ED which has included: CT brain which noted cerebral atrophy and chronic small vessel ischemia. Carotid Dopplers noted no hemodynamically significant stenosis. He does have an echocardiogram has been requested and is pending. Patient has been on IV iron replacement and states that he is beginning to feel better. Spouse at the bedside notes an increase in alertness and perceived energy level. On contact, the patient was supine in bed, resting in no acute distress with his spouse at his bedside. Review of Systems all systems not noted in HPI or negative Constitutional: Reports as per HPI Past Medical History Past Medical History: Hyperlipidemia, Hypertension Additional Past Medical History / Comment(s): chronic back pain; cortisone injections for neck pain History of Any Multi-Drug Resistant Organisms: None Reported Past Surgical History: No Surgical Hx Reported Past Anesthesia/Blood Transfusion Reactions: No Reported Reaction Past Psychological History: No Psychological Hx Reported Smoking Status: Never smoker Past Alcohol Use History: Rare Past Drug Use History: None Reported - Past Family History Father Family Medical History: Myocardial Infarction ([place]) Mother Family Medical History: No Reported History Additional Family Medical History / Comment(s): Pernicious anemia monitor and sister. Brother with Parkinson's Medications and Allergies Home Medications Medication Instructions Recorded Confirmed Type Cholecalciferol [Vitamin D3] 2,000 unit PO HS 01/03/16 06/16/16 History Dutasteride [Avodart] 0.5 mg PO HS 01/03/16 06/16/16 History Lisinopril [Zestril] 5 mg PO HS 01/03/16 06/16/16 History Simvastatin [Zocor] 20 mg PO HS 01/03/16 06/16/16 History L.acidoph,Paracasei, B.lactis 1 cap PO HS 06/16/16 06/16/16 History [Probiotic] Lactulose 10 gm PO DAILY PRN 06/16/16 06/16/16 History Allergies Allergy/AdvReac Type Severity Reaction Status Date / Time No Known Allergies Allergy Verified 06/16/16 20:23 Physical Examination - Vital Signs Vital Signs: Vital Signs Temp Pulse Pulse Resp BP BP Pulse Ox 06/18/16 23:00 98.3 F 78 20 135/71 99 06/18/16 15:00 97.8 F 67 20 147/70 98 06/18/16 07:00 98.6 F 64 19 151/72 96 Intake and Output 06/18/16 06/18/16 06/19/16 14:59 22:59 06:59 Intake Total 400 Balance 400 Intake: Oral 400 Other: Voiding Method Bedside Commode Urinal # Voids 6 1 3 # Bowel Movements 1 Constitutional: AOx3, cooperative Head: NC/AT Throat: Supple, no masses Respiratory: No increased work of breathing Cardiac: Regular rate and Rhythm GI: non tender, non distended Musculoskeletal: strengths are equal bilaterally 5/5 in upper extremities, Lower extremity strengths are equal bilaterally at 5/5. Neurological: CN II-XII in tact, patient was AOx3, speech and language are normal, no unilateralizing weakness, no seizure activity note on physical exam. Sensation was normal. No facial asymmetry on physical exam. Integementary: no rash, no erythema Psychiatric: mood and affect appropriate Results - Laboratory Findings CBC and BMP: 06/18/16 10:37 06/18/16 10:37 Abnormal Lab Findings: Abnormal Labs 06/17/16 06/17/16 06/17/16 02:32 02:32 08:22 RBC Hgb Hct MCV MCH MCHC RDW Chloride Glucose AST Total Creatine Kinase 38 L 39 L Total Protein HDL Cholesterol 39 L 06/17/16 06/17/16 06/18/16 08:22 08:22 10:37 RBC 3.79 L 3.75 L Hgb 7.6 L 7.3 L Hct 27.4 L 26.8 L MCV 72.3 L 71.5 L MCH 20.0 L 19.6 L MCHC 27.6 L 27.4 L RDW 17.0 H 18.0 H Chloride 110 H Glucose 107 H AST 12 L Total Creatine Kinase Total Protein 6.1 L HDL Cholesterol 06/18/16 10:37 RBC Hgb Hct MCV MCH MCHC RDW Chloride 108 H Glucose 119 H AST 15 L Total Creatine Kinase Total Protein HDL Cholesterol - Diagnostic Findings Additional findings: patient has noted red blood cell abnormalities indicative of anemia. Assessment and Plan (1) Anemia Status: Acute Plan: I reviewed the patient's laboratory results, patient does have significant RBC noted deficiencies. CT of the brain and carotid Doppler tend to exclude neurological underlying etiology. The EEG is still pending however. I did order a vitamin B6, vitamin B12 and iron study based on the patient's prior labs. Hematology consult is warranted at this time. Also as a result of the patient's reported increased fatigue, I am going to order a TSH level. Patient does have a strong family history for B12 deficiency. patient was on 325 mg aspirin started in the ED. I am going to stop that medication and start 81 mg aspirin to decrease the patient's risk for bleeding as well as a lack of therapeutic benefit or difference from 81 mg to 325 mg. Patient was noted to be on Zocor at home prior to hospitalization. The ED switched his medication to Lipitor and we will continue the Lipitor at this time. The only noted abnormal lipid value was the low HDL. Further treatment options will be discussed once the results of testing and lab work are obtained. At this time it does appear that the patient's current status is primarily related to his anemia. Neurology will continue to follow and provide further updates recommendations regarding treatment. I discussed the patient's pertinent medical information with Dr. Napoles. He agrees with the plan of care as implemented.
[2016-06-19] MEDS: SODIUM CHLORIDE 0.9% 1,000 ML IV SCH ×3 (01:41→23:25)
[2016-06-19 09:01] LABS: Anisocytosis Slight; Basophils % (A) 1 %; CH 19.5; CHCM 27.2; Eosinophils # (A) 0.2 k/uL (0-0.7); Eosinophils % (A) 4 %; HCT 28.2 % (39.0-53.0); HDW 3.34; HGB 7.7 gm/dL (13.0-17.5); Hypochromasia Marked; Luc # (Auto) 0.14; Luc % (Auto) 3; Lymphocytes # (A) 1.2 k/uL (1.0-4.8); Lymphocytes % (A) 23 %; MCH 19.8 pg (25.0-35.0); MCV 72.4 fL (80.0-100.0); Mean Platelet Volume 8.1; Microcytosis Moderate; Monocytes # (A) 0.4 k/uL (0-1.0); Monocytes % (A) 7 %; Neutrophils # (A) 3.3 k/uL (1.3-7.7); Neutrophils % (A) 63 %; RDW 17.7 % (11.5-15.5); WBC 5.2 k/uL (3.8-10.6); WBC (Perox) 5.54
[2016-06-19 09:12] LABS: MCHC 27.4 g/dL (31.0-37.0)
[2016-06-19 09:13] LABS: ALT 26 U/L (21-72); AST 13 U/L (17-59); Alkaline Phosphatase 58 U/L (38-126); Anion Gap 11 mmol/L; Blood Urea Nitrogen 13 mg/dL (9-20); Calcium 9.1 mg/dL (8.4-10.2); Carbon Dioxide 26 mmol/L (22-30); Chloride 107 mmol/L (98-107); Glucose 94 mg/dL (74-99); Non-African American GFR(MDRD) >60 (>60 ml/min/1.73 sqM); Potassium 3.8 mmol/L (3.5-5.1); Sodium 144 mmol/L (137-145); Total Bilirubin 0.2 mg/dL (0.2-1.3)
[2016-06-19 09:21] LABS: % Iron Saturation 7.8 % (20-50)
[2016-06-19] MEDS: FAMOTIDINE 20 MG TAB PO SCH (09:27)
[2016-06-19] MEDS: ASPIRIN 81 MG CHEW PO SCH (09:27)
[2016-06-19] MEDS: PANTOPRAZOLE 40 MG/10 ML VIAL IVP SCH (09:27)
--- NOTE | 2016-06-19 10:59 | P.PN ---
Subjective 70-year-old gentleman being seen on rounds. Currently sitting up taking a clear liquid diet. Patient is aware of the plan of care scheduled tomorrow for an EGD and colonoscopy as part of the workup for anemia. Neurology eval noted. Patients being evaluated for slurred speech frequent fall. Carotid Doppler study showed no significant hemodynamic stenosis. CAT scan of the brain in the emergency room showed cerebral atrophy with chronic small vessel ischemia EEG pending the echocardiogram showed left contiguous systolic function normal with an EF between 55 and 60% hemoglobin this morning is 7.7. Hemoglobin yesterday was 7.3. Patient states has not had any nausea vomiting no hematemesis and has not had a black stool patient does report feeling tired out. No slurred speech noted Objective - Vital Signs Vital signs: Vital Signs Temp 98.0 F 06/19/16 07:00 Pulse 68 06/19/16 07:00 Resp 19 06/19/16 07:00 BP 154/86 06/19/16 07:00 Pulse Ox 96 06/19/16 07:00 Intake & Output 06/18/16 06/19/16 06/19/16 18:59 06:59 18:59 Intake Total 500 Balance 500 Intake: Oral 500 Other: Voiding Method Bedside Commode Urinal # Voids 6 2 # Bowel Movements 1 - Exam Physical exam 70-year-old male sitting up in bed taking a clear liquid diet tolerating no nausea vomiting no abdominal pain Lungs essentially clear with adequate air movement Heart S1-S2 audible regular Abdomen soft not distended bowel tones present the reports the nausea vomiting urinating with no difficulty Extremities no edema noted - Labs CBC & Chem 7: 06/19/16 08:31 06/19/16 08:31 Labs: Abnormal Lab Results - Last 24 Hours (Table) 06/18/16 06/18/16 06/19/16 Range/Units 10:37 10:37 08:31 RBC 3.75 L 3.90 L (4.30-5.90) m/uL Hgb 7.3 L 7.7 L (13.0-17.5) gm/dL Hct 26.8 L 28.2 L (39.0-53.0) % MCV 71.5 L 72.4 L (80.0-100.0) fL MCH 19.6 L 19.8 L (25.0-35.0) pg MCHC 27.4 L 27.4 L (31.0-37.0) g/dL RDW 18.0 H 17.7 H (11.5-15.5) % Chloride 108 H (98-107) mmol/L Glucose 119 H (74-99) mg/dL Iron (49-181) ug/dL % Saturation (20-50) % AST 15 L (17-59) U/L Total Protein (6.3-8.2) g/dL 06/19/16 06/19/16 Range/Units 08:31 08:31 RBC (4.30-5.90) m/uL Hgb (13.0-17.5) gm/dL Hct (39.0-53.0) % MCV (80.0-100.0) fL MCH (25.0-35.0) pg MCHC (31.0-37.0) g/dL RDW (11.5-15.5) % Chloride (98-107) mmol/L Glucose (74-99) mg/dL Iron 29 L (49-181) ug/dL % Saturation 7.8 L (20-50) % AST 13 L (17-59) U/L Total Protein 6.0 L (6.3-8.2) g/dL Assessment and Plan Plan: Impression Present on admission near-syncopal episode suspect due to anemia History of increased fatigue generalized weakness suspect due to anemia Anemia with evidence of iron deficiency Essential hypertension History of BPH Hyperlipidemia Echocardiogram the 17 of June left contiguous systolic function normal EF attending 55 and 60% Bilateral carotid Doppler showed no hemodynamic significant stenosis Present on admission shuffling I unsteady gait with a history of falls Plan Repeat labs in the morning PT OT eval with fall precautions Check labs in the morning attempt keep the hemoglobin greater than 7.5 Scheduled for an EGD and a colonoscopy by surgical service on Monday bowel prep will be initiated as ordered Monitor blood pressure heart rate will address as indicated DVT and GI prophylaxis Neurology recommendations noted they ordered a vitamin B6 vitamin B12 and iron studies and a TSH level will follow up on the results decrease the aspirin from 325 to 81 mg daily Further recommendations pending will follow The above dictated assessment and findings were discussed with dr stone Impression and the plan of care have been dictated as directed. Paula Garrett nurse practitioner acting as a scribe for dr wynn
[2016-06-19] MEDS ORDERED: PEG 3350-NA SULF,BICARB,CL/KCL 4,000 ML BOTTLE PO ONE (11:00)
[2016-06-19] MEDS: FINASTERIDE 5 MG TAB PO SCH (20:38)
[2016-06-19] MEDS: CHOLECALCIFEROL 1,000 UNIT TAB PO SCH (20:38)
[2016-06-19] MEDS: ATORVASTATIN 10 MG TAB PO SCH (20:38)
[2016-06-19] MEDS: LISINOPRIL 5 MG TAB PO SCH (20:38)
[2016-06-19] MEDS: LACTOBACILLUS ACIDOPH & BULGAR 1 EACH PACKET PO SCH (20:39)
--- NOTE | 2016-06-19 22:44 | P.PN ---
Subjective Principal diagnosis: anemia INTERVAL UPDATE: The patient is 70-year-old male seen in the ED for syncopal episode and being followed by neurology. Patient was ambulating the grocery store when he became short of breath and then became very weak and passed to the ground. Patient did not completely lose consciousness nor did he sustain any trauma from a fall. Patient has not had any prior occurrence of this type of event. Patient states that since approximately December 2015, he has been experiencing increased fatigue, excessive desire to sleep, snoring and sleeping. Patient denies memory decline, diplopia, urgency for urination, balance or gait related issues or depression. Patient does have a family history is positive for anemia both his mother and sister. Anemia is related to vitamin B12 deficiency. He does have a brother that did have multiple sclerosis with an onset of age 30. Patient has had diagnostic testing since arrival in the ED which has included CT of the brain which noted cerebral atrophy and chronic small vessel ischemia. Carotid Dopplers noted no hemodynamically significant stenosis. He does have an echocardiogram that has been requested and is pending. Patient has been on IV iron supplementation and was beginning to feel better yesterday. On contact today, the patient was supine in bed, resting in no acute distress. he was alert and oriented 3. He stated however today he did not feel that he had as much energy as he did yesterday. He also did appear to be more pale. Objective - Vital Signs Vital signs: Vital Signs Temp 97.2 F L 06/19/16 15:00 Pulse 60 06/19/16 15:00 Resp 19 06/19/16 15:00 BP 140/75 06/19/16 16:25 Pulse Ox 99 06/19/16 15:00 Intake & Output 06/19/16 06/19/16 06/20/16 06:59 18:59 06:59 Intake Total 500 800 Balance 500 800 Intake: IV 800 Sodium Chloride 0.9% 1, 800 000 ml @ 100 mls/hr IV . Q10H DENZEL Rx#:[id number] Oral 500 Other: Voiding Method Bedside Commode Urinal # Voids 2 3 # Bowel Movements 1 2 - Exam Constitutional: AOx3, cooperative Head: NC/AT Throat: Supple, no masses Respiratory: No increased work of breathing Cardiac: Regular rate and Rhythm GI: non tender, non distended Musculoskeletal: Strengths are equal bilaterally 4/5, Lower extremity strengths are equal bilaterally at 4/5. Neurological: CN II-XII in tact, patient was AOx3, speech and language are normal, no unilateralizing weakness, no seizure activity note on physical exam. Sensation was normal. Integementary: no rash, no erythema Psychiatric: mood and affect appropriate - Labs CBC & Chem 7: 06/19/16 08:31 06/19/16 08:31 Labs: Abnormal Lab Results - Last 24 Hours (Table) 06/19/16 06/19/16 06/19/16 Range/Units 08:31 08:31 08:31 RBC 3.90 L (4.30-5.90) m/uL Hgb 7.7 L (13.0-17.5) gm/dL Hct 28.2 L (39.0-53.0) % MCV 72.4 L (80.0-100.0) fL MCH 19.8 L (25.0-35.0) pg MCHC 27.4 L (31.0-37.0) g/dL RDW 17.7 H (11.5-15.5) % Iron 29 L (49-181) ug/dL % Saturation 7.8 L (20-50) % AST 13 L (17-59) U/L Total Protein 6.0 L (6.3-8.2) g/dL Assessment and Plan (1) Anemia Status: Acute Plan: I reviewed the patient's laboratory results, patient does have significant RBC, hemoglobin, hematocrit,MCH, MCV, MCHC an RDW abnormalities. CT of the brain and carotid Doppler tend to exclude neurological underlying etiology. The EEG is still pending however. patient's B12 level was normal, TSH was normal and the B6 level is still pending. Iron studies also noted deficiencies. Hematology consult is warranted at this time. Patient we'll continue 81 mg aspirin to decrease the patient's risk for bleeding as well as a lack of therapeutic benefit or difference from 81 mg to 325 mg. Patient was noted to be on Zocor at home prior to hospitalization. The ED switched his medication to Lipitor and we will continue the Lipitor at this time. The only noted abnormal lipid value currently was the low HDL. Neurology will continue to follow on an as-needed basis if the patient's EEG returns. At this time the patient's syncopal episodes as well as his slurred speech and falls do not appear to be related to an underlying neurological process and appear largely related to his anemia status. It is recommended that the patient maintain the 81 mg aspirin as well as Lipitor at the current dose and frequency upon discharge. I discussed the patient's pertinent medical information with Dr. Napoles. He agrees with the plan of care as implemented.
[2016-06-20] MEDS: PANTOPRAZOLE 40 MG/10 ML VIAL IVP SCH (08:56)
[2016-06-20] MEDS: SODIUM CHLORIDE 0.9% 1,000 ML IV SCH (08:56)
[2016-06-20] MEDS: FAMOTIDINE 20 MG TAB PO SCH (08:56)
[2016-06-20] MEDS: ASPIRIN 81 MG CHEW PO SCH (08:57)
[2016-06-20 09:45] LABS: ALT 31 U/L (21-72); AST 16 U/L (17-59); Alkaline Phosphatase 63 U/L (38-126); Anion Gap 11 mmol/L; Blood Urea Nitrogen 6 mg/dL (9-20); Calcium 8.8 mg/dL (8.4-10.2); Carbon Dioxide 28 mmol/L (22-30); Chloride 106 mmol/L (98-107); Glucose 90 mg/dL (74-99); Non-African American GFR(MDRD) >60 (>60 ml/min/1.73 sqM); Potassium 3.7 mmol/L (3.5-5.1); Sodium 145 mmol/L (137-145); Total Bilirubin 0.5 mg/dL (0.2-1.3); Total Protein 6.2 g/dL (6.3-8.2)
[2016-06-20 10:09] LABS: Anisocytosis Slight; CH 19.6; CHCM 27.3; HCT 28.2 % (39.0-53.0); HDW 3.36; HGB 7.8 gm/dL (13.0-17.5); Hypochromasia Marked; MCH 20.1 pg (25.0-35.0); MCV 72.2 fL (80.0-100.0); Mean Platelet Volume 9.3; Microcytosis Moderate; WBC 5.1 k/uL (3.8-10.6); WBC (Perox) 5.43
[2016-06-20 10:33] LABS: MCHC 27.8 g/dL (31.0-37.0)
[2016-06-20] MEDS ORDERED: LIDOCAINE 1% INJ 10MG/ML (20 ML MDV) ONE (10:41)
[2016-06-20] MEDS ORDERED: PROPOFOL 10 MG/ML 20 ML VIAL IV ONE (10:41)
[2016-06-20] MEDS ORDERED: IV FLUID CONTINUATION 1,000 ML IV ONE (10:45)
--- NOTE | 2016-06-20 11:08 | P.OP ---
Date of Procedure: 06/20/16 Preoperative Diagnosis: Anemia Postoperative Diagnosis: Antral ulcer Procedure(s) Performed: EGD Colonoscopy Anesthesia: MAC Surgeon: Charles Truong Pathology: other (Antral ulcer) Condition: stable Disposition: PACU Description of Procedure: The patient's placed on the endoscopy table lateral position. He received IV sedation. The gastroscope some placed oropharynx and passed into the esophagus and into the stomach. The scope was then placed through the pylorus. The first and second portion of duodenum appeared normal. Scope was then brought back the antrum and there was an ulcer seen. There is no active bleeding. The ulcer was photographed. A biopsy of the edge of the ulcer was performed. The scope was then retroflexed and the remainder stomach appeared normal. The GE junction was at 40 cm. There was a small hiatal hernia. The distal esophagus was inflamed a biopsies performed. The proximal esophagus appeared normal. The scope was withdrawn for patient. Next digital rectal exam was performed which revealed a few external hemorrhoids. The flexible colonoscope was then placed patient anus passed rotator colon. The ileocecal valve sutures. The cecum, ascending and transverse colon appeared normal. The descending and sigmoid colon appeared normal. Scope was brought back the rectum and this appeared normal. The scope was withdrawn from the anus and external hemorrhoids were noted. She was then sent to recovery in stable condition.
[2016-06-20 11:23] LABS: Add Differential Manual Differential
[2016-06-20 11:27] LABS: Nucleated Red Blood Cells 0 /100 WBC (0-0); Total Cells Counted 100
--- NOTE | 2016-06-20 13:18 | P.PN ---
Subjective This is a 70-year-old male who presented with a near syncopal episode and evidence of anemia. Underwent EGD and colonoscopy. Revealing antral ulcer and external hemorrhoids no evidence of active bleeding. Hemoglobin 7.8 today. Currently on IV Protonix. Patient was showing evidence of orthostatic hypotension and received IV fluids yesterday. He denies any dizziness. Patient is being evaluated for possible ECF placement. Awaiting physical therapy evaluation. Denies any chest pain or shortness of breath. Denies any nausea or vomiting. Denies any difficulty urinating. Undergoing EEG today Objective - Vital Signs Vital signs: Vital Signs Temp 97.2 F L 06/20/16 07:00 Pulse 68 06/20/16 07:00 Resp 16 06/20/16 07:00 BP 162/82 06/20/16 07:00 Pulse Ox 96 06/20/16 07:00 Intake & Output 06/19/16 06/20/16 06/20/16 18:59 06:59 18:59 Intake Total 1600 500 Output Total 400 Balance 1600 100 Intake: IV 1600 500 Sodium Chloride 0.9% 1, 1600 000 ml @ 100 mls/hr IV . Q10H DENZEL Rx#:[id number] Output: Urine 400 Other: Voiding Method Bedside Commode Urinal # Voids 3 2 1 # Bowel Movements 2 2 - Exam Head normocephalic Neck supple Lungs clear to auscultation bilaterally no wheezing or crackles Heart regular rate and rhythm S1-S2, no rub or gallop Abdomen is soft nontender nondistended positive bowel sounds no hepatosplenomegaly Extremities no edema Neuro alert and orientated to 3 - Labs CBC & Chem 7: 06/20/16 08:47 06/20/16 08:47 Labs: Abnormal Lab Results - Last 24 Hours (Table) 06/20/16 06/20/16 Range/Units 08:47 08:47 RBC 3.90 L (4.30-5.90) m/uL Hgb 7.8 L (13.0-17.5) gm/dL Hct 28.2 L (39.0-53.0) % MCV 72.2 L (80.0-100.0) fL MCH 20.1 L (25.0-35.0) pg MCHC 27.8 L (31.0-37.0) g/dL RDW 18.0 H (11.5-15.5) % BUN 6 L (9-20) mg/dL AST 16 L (17-59) U/L Total Protein 6.2 L (6.3-8.2) g/dL Assessment and Plan Plan: 1. Near syncopal episode with fatigue and generalized weakness and unsteady gait likely secondary to patient's anemia and orthostatic hypotension. Was seen evaluated by neurology. EEG scheduled for today. EKG had shown sinus rhythm with PVCs. Computed tomography scan of the chest was negative for PE. Echo shows an EF of 55-60% no significant valvular abnormality. Carotid Doppler was negative for any significant hemodynamic stenosis. 2. Anemia with evidence of iron deficiency anemia. Anemia possibly related to patient's antral ulcer. Continue with the IV Protonix. Patient status post EGD and colonoscopy revealing antral ulcer and external hemorrhoids no evidence of active bleeding. Hemoglobin 7.8. Start patient on clear diet and advance as tolerated. Patient did receive a dose of IV iron during this admission 3. Orthostatic hypotension: Patient received IV fluids. Awaiting repeat orthostatic blood pressures today 4. Essential hypertension continue lisinopril 5. History of BPH continue with the finasteride 6. Hyperlipidemia resume Lipitor 7. Medical debility: Awaiting evaluation by physical therapy. Patient being evaluated for possible ECF placement DVT prophylaxis SCDs and GI prophylaxis Protonix Anticipate discharge possibly tomorrow
--- NOTE | 2016-06-20 18:14 | CDI ---
In responding to this query, please exercise your independent professional judgment. The [facility] Coding Staff and Clinical Documentation Specialists appreciate your assistance in clarifying documentation, maintaining compliance with coding guidelines, accurately documenting patients condition and capturing severity of illness. The fact that a question is asked does not imply that any particular answer is desired or expected. Communication forms are a method of clarifying documentation and are not made part of the Legal Health Record. Thank you in advance for your clarification. Last Revision, March 2015 Adrien Griffith [address] [facility] [place] [address] Documentation Clarification Form Date: 06/20/2016 5:56:00 PM From: Yolanda Goodrich Admit Date: 06/16/2016 11:12:00 PM Patient Name: Herman Hsu Visit Number: [id number] Discharge Date: Dr. Charles Truong Preoperative Diagnosis: Anemia Postoperative Diagnosis: Antral ulcer per EGD Patient history/risk factors: Hyperlipidemia, Hypertension Clinical Indicators: Patient became very weak, did not completely lose consciousness. no head trauma from fall. Lab findings: HGB 8.3, HCT 29.8, Radiology findings: Vital Signs: 103/62 72 18 97.5 Other Clinical Indicators: ER evaluation of near syncopal event and weakness was found to be anemic, no blood in the stools, no dark tarry stools. Treatment: IV Fluid bolus and continue @ 50mls/HR Protonix IV In your professional opinion, can you please further clarify Antral ulcer? Acute gastritis ( with or without bleeding) Antral ulcer, Acute ( with or without hemorrhage or perforation) Antral ulcer, Chronic ( with or without hemorrhage or perforation) Other Unable to determine Please document in your progress notes order to capture severity of illness and risk of mortality. Include clinical findings that support your diagnosis. FYI: Press F11 to launch patient chart. Place X here if this finding has no clinical significance, is not applicable or if you are not able to provide any additional documentation. MTDD
[2016-06-20] MEDS: LACTOBACILLUS ACIDOPH & BULGAR 1 EACH PACKET PO SCH (21:27)
[2016-06-20] MEDS: CHOLECALCIFEROL 1,000 UNIT TAB PO SCH (21:27)
[2016-06-20] MEDS: FINASTERIDE 5 MG TAB PO SCH (21:27)
[2016-06-20] MEDS: ATORVASTATIN 10 MG TAB PO SCH (21:27)
[2016-06-20] MEDS: LISINOPRIL 5 MG TAB PO SCH (21:27)
[2016-06-21] MEDS: SODIUM CHLORIDE 0.9% 1,000 ML IV SCH (04:18)
[2016-06-21] MEDS: ASPIRIN 81 MG CHEW PO SCH (08:00)
[2016-06-21] MEDS: PANTOPRAZOLE 40 MG/10 ML VIAL IVP SCH (08:00)
--- NOTE | 2016-06-21 08:15 | EEG ---
DATE OF SERVICE: 06/20/2016 REASON FOR TESTING: Syncope. AGE: 70Y DESCRIPTION OF THE PROCEDURE: This EEG was performed using a 21-channel digital electroencephalograph, following the international 10 to 20 system. DESCRIPTION OF THE RECORDING: From the beginning of the tracing, and with the patient's eyes closed, the background rhythm was mostly consisting of 8 Hz alpha frequency in the posterior occipital leads. No obvious asymmetry is seen. Photic stimulation was performed with a good driving response seen. No pathological waves were elicited. Hyperventilation was not performed. Occasional movement artifacts are seen. Later during the tracing, the patient does reach stage II of sleep and occasional sleep spindles are seen. No epileptiform discharges were seen. His EKG lead showed a regular rate and rhythm. INTERPRETATION: This asleep and awake EEG can be considered within normal limits. There was no asymmetry seen. No epileptiform discharges were noticed. The absence of epileptiform discharges does not rule out the diagnosis of epilepsy, therefore, clinical correlation is recommended.
[2016-06-21 10:45] LABS: ALT 30 U/L (21-72); AST 18 U/L (17-59); Alkaline Phosphatase 59 U/L (38-126); Anion Gap 14 mmol/L; Blood Urea Nitrogen 8 mg/dL (9-20); Calcium 9.3 mg/dL (8.4-10.2); Carbon Dioxide 23 mmol/L (22-30); Chloride 108 mmol/L (98-107); Glucose 135 mg/dL (74-99); Non-African American GFR(MDRD) >60 (>60 ml/min/1.73 sqM); Potassium 3.7 mmol/L (3.5-5.1); Sodium 145 mmol/L (137-145); Total Bilirubin 0.8 mg/dL (0.2-1.3); Total Protein 6.2 g/dL (6.3-8.2)
[2016-06-21 11:21] LABS: Anisocytosis Moderate; Basophils % (A) 1 %; CH 21.9; CHCM 28.7; Eosinophils # (A) 0.2 k/uL (0-0.7); Eosinophils % (A) 3 %; HCT 34.2 % (39.0-53.0); HDW 4.37; Hypochromasia Marked; Luc % (Auto) 2; Lymphocytes # (A) 0.9 k/uL (1.0-4.8); Lymphocytes % (A) 17 %; MCH 21.9 pg (25.0-35.0); MCHC 28.7 g/dL (31.0-37.0); MCV 76.2 fL (80.0-100.0); Mean Platelet Volume 7.9; Microcytosis Moderate; Monocytes # (A) 0.3 k/uL (0-1.0); Monocytes % (A) 6 %; Neutrophils # (A) 3.8 k/uL (1.3-7.7); Neutrophils % (A) 71 %; Poikilocytosis Moderate; RBC 4.49 m/uL (4.30-5.90); RDW 21.4 % (11.5-15.5); WBC 5.3 k/uL (3.8-10.6); WBC (Perox) 5.87
[2016-06-21 11:38] LABS: HGB 9.8 gm/dL (13.0-17.5)
[2016-06-21 12:25] LABS: Manual Review Performed
--- NOTE | 2016-06-21 14:00 | P.PN ---
Subjective Principal diagnosis: Anemia Patient is a 70-year-old white male admitted with syncopal episode and evidence of anemia. Patient underwent EGD and colonoscopy on 06/20/2016 with evidence of antral ulcer, small hiatal hernia; and external hemorrhoids. Patient tolerated the procedure well. Patient is evaluated on the medical floor. Denies chills, nausea, vomiting, shortness of breath, chest pain, no abdominal pain. Denies melena, hematemesis, or hematochezia. Passing flatus without bowel movement. Tolerating regular diet. Afebrile. Hemoglobin 9.8 status post 2 units of PRBC. Objective - Vital Signs Vital signs: Vital Signs Temp 97.7 F 06/21/16 07:00 Pulse 62 06/21/16 07:00 Resp 20 06/21/16 07:00 BP 159/91 06/21/16 07:00 Pulse Ox 93 L 06/21/16 07:00 Intake & Output 06/20/16 06/21/16 06/21/16 18:59 06:59 18:59 Intake Total 500 620 360 Output Total 400 275 200 Balance 100 345 160 Weight 87 kg Intake: IV 500 Oral 360 Blood Product 620 Rc As-1 Unit 310 [id number] Rc As-1 Unit 310 [id number] Output: Urine 400 275 200 Other: Voiding Method Bedside Commode Urinal Diaper Incontinent # Voids 1 2 - Exam GENERAL: Pt awake and alert, well-appearing, well-nourished, and in no acute distress. LUNGS: Breath sounds clear to auscultation bilaterally. No wheezes, rales, or rhonchi. HEART: Heart S1, S2, no S3 or S4. Regular rate and rhythm. No murmurs, rubs or gallops. ABDOMEN: Soft, nontender, nondistended, normoactive bowel sounds. No guarding, no rebound. No masses or organomegaly appreciated. NEUROLOGICAL: Pt oriented x 3. - Labs CBC & Chem 7: 06/21/16 09:39 06/21/16 09:39 Labs: Abnormal Lab Results - Last 24 Hours (Table) 06/20/16 06/21/16 06/21/16 Range/Units 17:21 09:39 09:39 Hgb 9.8 L D (13.0-17.5) gm/dL Hct 34.2 L (39.0-53.0) % MCV 76.2 L (80.0-100.0) fL MCH 21.9 L (25.0-35.0) pg MCHC 28.7 L (31.0-37.0) g/dL RDW 21.4 H (11.5-15.5) % Lymphocytes # 0.9 L (1.0-4.8) k/uL Chloride 108 H (98-107) mmol/L BUN 8 L (9-20) mg/dL Glucose 135 H (74-99) mg/dL Total Protein 6.2 L (6.3-8.2) g/dL Crossmatch See Detail Assessment and Plan Plan: Impression: 1. Antral ulcer, unable to determine, no evidence of active bleeding. 2. Small hiatal hernia. 3. External hemorrhoids. 4. Anemia. Plan: 1. Continue cardiac diet. Continue IV Protonix. Continue follow medical team. From a surgical standpoint, patient is stable for discharge. Patient to follow-up with Dr. Truong in the outpatient setting in 1 week. The above impression and plan have been discussed and directed by Dr. Truong. Yuval MINA acting as scribe for Dr. Truong.
--- NOTE | 2016-06-21 19:16 | P.PN ---
Subjective Principal diagnosis: Peptic ulcer disease with anemia Patient is a 70-year-old male admitted with severe weakness extensive evaluation revealed evidence of severe anemia EGD revealed evidence of gastric ulcer received 2 units of red blood cell transfusion he is feeling better. Patient has severe weakness and gait disturbance cause is unclear he was evaluated by neurology feels that his weakness is related to his medical problem and no neurological problem is present. Objective - Vital Signs Vital signs: Vital Signs Temp 97.2 F L 06/21/16 15:00 Pulse 81 06/21/16 15:00 Resp 20 06/21/16 15:00 BP 130/72 06/21/16 15:00 Pulse Ox 97 06/21/16 15:00 Intake & Output 06/21/16 06/21/16 06/22/16 06:59 18:59 06:59 Intake Total 620 600 Output Total 275 200 Balance 345 400 Weight 87 kg Intake: Oral 600 Blood Product 620 Rc As-1 Unit 310 [id number] Rc As-1 Unit 310 [id number] Output: Urine 275 200 Other: # Voids 2 1 # Bowel Movements 1 - Exam HEENT head normocephalic and atraumatic Neck is supple no JVD no goiter no lymphadenopathy Chest exam reveals a few scattered crackles no wheezing Cardiac exam reveals regular heart sounds no murmurs Abdomen is soft nontender no organomegaly Extremity exam reveals no edema - Labs CBC & Chem 7: 06/21/16 09:39 06/21/16 09:39 Labs: Abnormal Lab Results - Last 24 Hours (Table) 06/20/16 06/21/16 06/21/16 Range/Units 17:21 09:39 09:39 Hgb 9.8 L D (13.0-17.5) gm/dL Hct 34.2 L (39.0-53.0) % MCV 76.2 L (80.0-100.0) fL MCH 21.9 L (25.0-35.0) pg MCHC 28.7 L (31.0-37.0) g/dL RDW 21.4 H (11.5-15.5) % Lymphocytes # 0.9 L (1.0-4.8) k/uL Chloride 108 H (98-107) mmol/L BUN 8 L (9-20) mg/dL Glucose 135 H (74-99) mg/dL Total Protein 6.2 L (6.3-8.2) g/dL Crossmatch See Detail Assessment and Plan Plan: #1 peptic ulcer disease with anemia #2 anemia requiring 2 units of red blood cell transfusion #3 severe weakness patient will need to be admitted to a rehab center after this admission #4 at this time test labs and medication were reviewed plan is for discharge tomorrow to a rehab center
[2016-06-21] MEDS: FINASTERIDE 5 MG TAB PO SCH (21:03)
[2016-06-21] MEDS: LACTOBACILLUS ACIDOPH & BULGAR 1 EACH PACKET PO SCH (21:03)
[2016-06-21] MEDS: CHOLECALCIFEROL 1,000 UNIT TAB PO SCH (21:03)
[2016-06-21] MEDS: LISINOPRIL 5 MG TAB PO SCH (21:03)
[2016-06-21] MEDS: ATORVASTATIN 10 MG TAB PO SCH (21:03)
[2016-06-22 07:47] VITALS: BP 150/88; PULSE 66; RESP 18; TEMP 98.9
[2016-06-22] MEDS ORDERED: PANTOPRAZOLE 40 MG TABLET PO SCH (09:00)
[2016-06-22] MEDS: ASPIRIN 81 MG CHEW PO SCH (09:52)
--- NOTE | 2016-06-22 12:17 | P.DS ---
Providers Date of admission: 06/16/16 23:12 Expected date of discharge: 06/22/16 Attending physician: Marilia Deleon Consults: 06/17/16 10:21 Consult Physician Routine Consulting Provider: Charles Truong Consult Reason/Comments: anemia Do you want consulting provider notified?: Yes 06/18/16 09:57 Consult Physician Routine Consulting Provider: Kike Napoles Consult Reason/Comments: slured speech, falls Do you want consulting provider notified?: Already Contacted Primary care physician: [facility] Course: This is a 70-year-old gentleman with past medical history noted below who presented to the hospital with presyncope. Patient was found to be anemic and was evaluated by general surgery underwent both EGD and colonoscopy. He required 2 units of blood transfusion during this admission. His clinical condition improved significantly. Below is a list of his medical problems addressed during this hospitalization. 1. Near syncopal episode with fatigue and generalized weakness likely secondary to patient's anemia and orthostatic hypotension on presentation. EKG had shown sinus rhythm with PVCs. Computed tomography scan of the chest was negative for PE. Echo shows an EF of 55-60% no significant valvular abnormality. Carotid Doppler was negative for any significant hemodynamic stenosis. 2. Anemia with evidence of iron deficiency anemia. Status post EGD and colonoscopy revealing antral ulcer and external hemorrhoids no evidence of active bleeding. Patient did receive a dose of IV iron during this admission 3. Orthostatic hypotension: Resolved with IV fluid hydration 4. Essential hypertension continue lisinopril 5. History of BPH continue with the finasteride 6. Hyperlipidemia resume Lipitor 7. Medical debility: Plan to discharge to [facility] for subacute rehab Patient Condition at Discharge: Fair Plan - Discharge Summary New Discharge Prescriptions: Pantoprazole [Protonix] 40 mg PO DAILY #30 tablet.dr Discharge Medication List Cholecalciferol [Vitamin D3] 2,000 unit PO HS 01/03/16 [History] Dutasteride [Avodart] 0.5 mg PO HS 01/03/16 [History] Lisinopril [Zestril] 5 mg PO HS 01/03/16 [History] Simvastatin [Zocor] 20 mg PO HS 01/03/16 [History] L.acidoph,Paracasei, B.lactis [Probiotic] 1 cap PO HS 06/16/16 [History] Lactulose 10 gm PO DAILY PRN 06/16/16 [History] Pantoprazole [Protonix] 40 mg PO DAILY #30 tablet. 06/22/16 [Rx] Follow up Appointment(s)/Referral(s): Charles Truong MD [STAFF PHYSICIAN] - 1 Week Angle Muniz DO [Primary Care Provider] - 1-2 days Onofre Melissa MD [STAFF PHYSICIAN] - 3 Days Discharge Disposition: TRANSFER TO SNF/ECF
== END 2016-06-22 13:46 | DRG 384 ==
LOC: EC 19:57 → 4MS4W 23:12
PROVIDERS: ADMIT Internal Medicine; ATTEND Internal Medicine
PROC: 0DJD8ZZ Inspection of Lower Intestinal Tract, Via Natural or Artificial Opening Endoscopic (ICD-10-PCS; 2016-06-20)
PROC: 30233N1 Transfusion of Nonautologous Red Blood Cells into Peripheral Vein, Percutaneous Approach (ICD-10-PCS; principal; 2016-06-20 08:15)
PROC: 0DB38ZX Excision of Lower Esophagus, Via Natural or Artificial Opening Endoscopic, Diagnostic (ICD-10-PCS; 2016-06-20 08:15)
DX: K25.9 Gastric ulcer, unspecified as acute or chronic, without hemorrhage or perforation (principal); I10 Essential (primary) hypertension; K64.4 Residual hemorrhoidal skin tags; I49.3 Ventricular premature depolarization; D50.9 Iron deficiency anemia, unspecified; I95.1 Orthostatic hypotension; K44.9 Diaphragmatic hernia without obstruction or gangrene; K59.00 Constipation, unspecified; E78.5 Hyperlipidemia, unspecified; G89.29 Other chronic pain; M54.9 Dorsalgia, unspecified; R26.81 Unsteadiness on feet; M54.2 Cervicalgia; R53.1 Weakness; N40.0 Benign prostatic hyperplasia without lower urinary tract symptoms; R47.81 Slurred speech; R29.6 Repeated falls; I67.9 Cerebrovascular disease, unspecified; R55 Syncope and collapse; Z83.2 Family history of diseases of the blood and blood-forming organs and certain disorders involving the immune mechanism; Z82.0 Family history of epilepsy and other diseases of the nervous system; Z79.899 Other long term (current) drug therapy; Z91.81 History of falling; Z82.49 Family history of ischemic heart disease and other diseases of the circulatory system; Z86.010 Personal history of colon polyps
CPT/HCPCS: 36415; 43239; 70470; 71275; 80053; 80061; 81003; 82550; 82553; 82607; 83540; 83550; 83735; 83880; 84100; 84207; 84443; 84484; 85025; 85379; 85610; 85730; 86850; 86900; 86901; 86920; 87086; 88305; 88342; 93005; 93306; 93880; 94760; 95819; 96360; 96361; 99153; 99285

== ENCOUNTER 2016-07-02 19:32 | Inpatient (IN) | payer MEDICARE ==
--- NOTE | 2016-07-02 19:48 | ED ---
Weakness HPI - General Chief complaint: Weakness Stated complaint: Rt Sided Weakness Time Seen by Provider: 07/02/16 19:32 Source: patient, RN notes reviewed Mode of arrival: EMS Limitations: no limitations - History of Present Illness Initial comments: This is a 70-year-old male who is brought in for evaluation for right-sided weakness. She apparently fell yesterday landing on his buttock began a bed was placed back in bed he was there for rehab for weakness. He was noted to have right upper and lower extremity weakness is some point today his noted he cannot rate his signature with his dominant right-handed. Patient denies any headache blurry vision nausea vomiting fevers chills or sweats. No prior history of stroke he was brought in by EMS for evaluation. Patient himself complains and no findings other than the weakness as stated. He believes that this started yesterday. Complaint: focal weakness - Related Data Home Medications Medication Instructions Recorded Confirmed Cholecalciferol [Vitamin D3] 2,000 unit PO HS 01/03/16 06/16/16 Dutasteride [Avodart] 0.5 mg PO HS 01/03/16 06/16/16 Lisinopril [Zestril] 5 mg PO HS 01/03/16 06/16/16 Simvastatin [Zocor] 20 mg PO HS 01/03/16 06/16/16 L.acidoph,Paracasei, B.lactis 1 cap PO HS 06/16/16 06/16/16 [Probiotic] Lactulose 10 gm PO DAILY PRN 06/16/16 06/16/16 Previous Rx's Medication Instructions Recorded Pantoprazole [Protonix] 40 mg PO DAILY #30 tablet. 06/22/16 Allergies Allergy/AdvReac Type Severity Reaction Status Date / Time No Known Allergies Allergy Verified 07/02/16 19:42 Review of Systems ROS Statement: Those systems with pertinent positive or pertinent negative responses have been documented in the HPI. ROS Other: All systems not noted in ROS Statement are negative. Past Medical History Past Medical History: GI Bleed, Hyperlipidemia, Hypertension Additional Past Medical History / Comment(s): chronic back pain; cortisone injections for neck pain; gastric ulcer History of Any Multi-Drug Resistant Organisms: None Reported Past Surgical History: No Surgical Hx Reported Past Anesthesia/Blood Transfusion Reactions: No Reported Reaction Past Psychological History: No Psychological Hx Reported Smoking Status: Never smoker Past Alcohol Use History: Rare Past Drug Use History: None Reported - Past Family History Father Family Medical History: Myocardial Infarction ([place]) Mother Family Medical History: No Reported History Additional Family Medical History / Comment(s): Pernicious anemia monitor and sister. Brother with Parkinson's General Exam - General Exam Comments Initial Comments: This is a well up well-nourished awake alert oriented times x3male Limitations: no limitations General appearance: alert, in no apparent distress Head exam: Present: atraumatic, other (He does demonstrate some flattening the left nasal labial fold with some facial asymmetry.) Eye exam: Present: normal appearance, PERRL, EOMI. Absent: scleral icterus, conjunctival injection, periorbital swelling ENT exam: Present: normal exam, mucous membranes moist Neck exam: Present: normal inspection, other (No stridor JVD or bruits). Absent : tenderness, meningismus, lymphadenopathy Respiratory exam: Present: normal lung sounds bilaterally. Absent: respiratory distress, wheezes, rales, rhonchi, stridor Cardiovascular Exam: Present: regular rate, normal rhythm, normal heart sounds. Absent: systolic murmur, diastolic murmur, rubs, gallop, clicks GI/Abdominal exam: Present: soft, normal bowel sounds. Absent: distended, tenderness, guarding, rebound, rigid Rectal exam: Present: deferred Extremities exam: Present: normal inspection, normal capillary refill. Absent: full ROM, tenderness, pedal edema, joint swelling Back exam: Present: normal inspection Neurological exam: Present: alert, oriented X3, motor sensory deficit, other ( Weakness noted to the right upper and lower extremities. Compared to a normal left. Left facial asymmetry is noted.). Absent: CN II-XII intact Psychiatric exam: Present: normal affect, normal mood Skin exam: Present: warm, dry, intact, normal color. Absent: rash Course Vital Signs 07/02/16 19:36 Temperature 98.5 F Pulse Rate 92 Respiratory 18 Rate Blood Pressure 128/68 O2 Sat by Pulse 96 Oximetry Medical Decision Making - Medical Decision Making I did a long discussion with patient family regarding findings I did discuss case with Dr. Cobos the patient will be admitted for evaluation of CHF and renal failure - Radiology Data Radiology results: report reviewed (I did review the x-ray report is evidence of fibrotic changes no acute findings), image reviewed Disposition Clinical Impression: Congestive heart failure (CHF), Acute renal failure (ARF) Disposition: ADMITTED IP TO THIS [facility] Condition: Stable Referrals: Angle Muniz DO [Primary Care Provider] - 1-2 days
[2016-07-02 20:12] LABS: Anisocytosis Moderate; Basophils % (A) 1 %; CH 22.5; CHCM 29.8; Eosinophils # (A) 0.1 k/uL (0-0.7); Eosinophils % (A) 2 %; HCT 38.6 % (39.0-53.0); HDW 3.85; HGB 11.1 gm/dL (13.0-17.5); Hypochromasia Marked; Luc # (Auto) 0.12; Luc % (Auto) 3; Lymphocytes % (A) 21 %; MCH 21.8 pg (25.0-35.0); MCHC 28.8 g/dL (31.0-37.0); MCV 75.4 fL (80.0-100.0); Mean Platelet Volume 7.7; Microcytosis Moderate; Monocytes # (A) 0.4 k/uL (0-1.0); Monocytes % (A) 8 %; Neutrophils # (A) 3.1 k/uL (1.3-7.7); Neutrophils % (A) 66 %; Poikilocytosis Slight; RBC 5.12 m/uL (4.30-5.90); WBC 4.7 k/uL (3.8-10.6); WBC (Perox) 5.07
--- NOTE | 2016-07-02 20:19 | CT ---
EXAMINATION TYPE: CT brain wo con DATE OF EXAM: 07/02/2016 8:14 PM COMPARISON: 06/17/2016 HISTORY: weakness CT DLP: 1054.2 mGycm Automated exposure control for dose reduction was used. FINDINGS: There is patchy hypodensity in the periventricular white matter. There is no mass effect nor midline shift. There is cerebral cortical atrophy. There is no sign of intracranial hemorrhage. The calvarium is intact. IMPRESSION: Atrophy and chronic white matter changes. No acute intracranial abnormality. No change.
--- NOTE | 2016-07-02 20:20 | XR ---
EXAMINATION TYPE: XR chest 2V DATE OF EXAM: 07/02/2016 8:15 PM COMPARISON: NONE HISTORY: Altered mental status and weakness TECHNIQUE: Frontal and lateral views of the chest are obtained. FINDINGS: There is no heart failure nor confluent pneumonic infiltrate. There is poor inspiration. T here are no hilar masses. There is no sign of pleural effusion. There are chest leads. IMPRESSION: No active cardiopulmonary disease.
[2016-07-02 20:27] LABS: ALT 36 U/L (21-72); AST 20 U/L (17-59); Alkaline Phosphatase 71 U/L (38-126); Anion Gap 13 mmol/L; Blood Urea Nitrogen 17 mg/dL (9-20); Calcium 9.6 mg/dL (8.4-10.2); Carbon Dioxide 27 mmol/L (22-30); Chloride 104 mmol/L (98-107); Glucose 106 mg/dL (74-99); Non-African American GFR(MDRD) >60 (>60 ml/min/1.73 sqM); Potassium 4.3 mmol/L (3.5-5.1); Sodium 144 mmol/L (137-145); Total Bilirubin 0.4 mg/dL (0.2-1.3); Total Protein 7.2 g/dL (6.3-8.2)
[2016-07-02 20:28] LABS: INR 1.1 (<1.1)
[2016-07-02 20:29] LABS: Partial Thromboplastin Time 22.8 sec (22.0-30.0); Prothrombin Time 11.5 sec (9.0-12.0)
[2016-07-02 20:37] LABS: Creatine Kinase 149 U/L (55-170)
[2016-07-02 20:51] LABS: Creatine Kinase MB 1.7 ng/mL (0.0-2.4); Troponin I <0.012 ng/mL (0.000-0.034)
--- NOTE | 2016-07-02 22:21 | ED ---
Medical Decision Making - Medical Decision Making I did reevaluate the patient several occasions after his arrival is no change neurologically. I did a long discussion with the patient has regarding findings the patient is not a candidate for TPA as the symptoms likely started yesterday morning when he awoke. He will be admitted. Requested Dr. Napoles - Lab Data Result diagrams: 07/02/16 19:47 07/02/16 19:47 Lab Results 07/02/16 07/02/16 07/02/16 Range/Units 19:47 19:47 19:47 WBC 4.7 (3.8-10.6) k/uL RBC 5.12 (4.30-5.90) m/uL Hgb 11.1 L (13.0-17.5) gm/dL Hct 38.6 L (39.0-53.0) % MCV 75.4 L (80.0-100.0) fL MCH 21.8 L (25.0-35.0) pg MCHC 28.8 L (31.0-37.0) g/dL RDW 22.0 H (11.5-15.5) % Plt Count 207 (150-450) k/uL Neutrophils % 66 % Lymphocytes % 21 % Monocytes % 8 % Eosinophils % 2 % Basophils % 1 % Neutrophils # 3.1 (1.3-7.7) k/uL Lymphocytes # 1.0 (1.0-4.8) k/uL Monocytes # 0.4 (0-1.0) k/uL Eosinophils # 0.1 (0-0.7) k/uL Basophils # 0.0 (0-0.2) k/uL Hypochromasia Marked Poikilocytosis Slight Anisocytosis Moderate Microcytosis Moderate PT (9.0-12.0) sec INR (<1.1) APTT (22.0-30.0) sec Sodium 144 (137-145) mmol/L Potassium 4.3 (3.5-5.1) mmol/L Chloride 104 (98-107) mmol/L Carbon Dioxide 27 (22-30) mmol/L Anion Gap 13 mmol/L BUN 17 (9-20) mg/dL Creatinine 0.76 (0.66-1.25) mg/dL Est GFR (MDRD) Af Amer >60 (>60 ml/min/1.73 sqM) Est GFR (MDRD) Non-Af >60 (>60 ml/min/1.73 sqM) Glucose 106 H (74-99) mg/dL Calcium 9.6 (8.4-10.2) mg/dL Magnesium 2.0 (1.6-2.3) mg/dL Total Bilirubin 0.4 (0.2-1.3) mg/dL AST 20 (17-59) U/L ALT 36 (21-72) U/L Alkaline Phosphatase 71 (38-126) U/L Total Creatine Kinase 149 (55-170) U/L CK-MB (CK-2) 1.7 (0.0-2.4) ng/mL CK-MB (CK-2) Rel Index 1.1 Troponin I <0.012 (0.000-0.034) ng/mL Total Protein 7.2 (6.3-8.2) g/dL Albumin 4.3 (3.5-5.0) g/dL 07/02/16 Range/Units 19:47 WBC (3.8-10.6) k/uL RBC (4.30-5.90) m/uL Hgb (13.0-17.5) gm/dL Hct (39.0-53.0) % MCV (80.0-100.0) fL MCH (25.0-35.0) pg MCHC (31.0-37.0) g/dL RDW (11.5-15.5) % Plt Count (150-450) k/uL Neutrophils % % Lymphocytes % % Monocytes % % Eosinophils % % Basophils % % Neutrophils # (1.3-7.7) k/uL Lymphocytes # (1.0-4.8) k/uL Monocytes # (0-1.0) k/uL Eosinophils # (0-0.7) k/uL Basophils # (0-0.2) k/uL Hypochromasia Poikilocytosis Anisocytosis Microcytosis PT 11.5 (9.0-12.0) sec INR 1.1 (<1.1) APTT 22.8 (22.0-30.0) sec Sodium (137-145) mmol/L Potassium (3.5-5.1) mmol/L Chloride (98-107) mmol/L Carbon Dioxide (22-30) mmol/L Anion Gap mmol/L BUN (9-20) mg/dL Creatinine (0.66-1.25) mg/dL Est GFR (MDRD) Af Amer (>60 ml/min/1.73 sqM) Est GFR (MDRD) Non-Af (>60 ml/min/1.73 sqM) Glucose (74-99) mg/dL Calcium (8.4-10.2) mg/dL Magnesium (1.6-2.3) mg/dL Total Bilirubin (0.2-1.3) mg/dL AST (17-59) U/L ALT (21-72) U/L Alkaline Phosphatase (38-126) U/L Total Creatine Kinase (55-170) U/L CK-MB (CK-2) (0.0-2.4) ng/mL CK-MB (CK-2) Rel Index Troponin I (0.000-0.034) ng/mL Total Protein (6.3-8.2) g/dL Albumin (3.5-5.0) g/dL - Radiology Data Radiology results: report reviewed (I did review the imaging and reports no acute findings are noted.), image reviewed Disposition Clinical Impression: CVA (cerebral vascular accident) Disposition: ADMITTED IP TO THIS [facility] Condition: Stable Referrals: Angle Muniz DO [Primary Care Provider] - 1-2 days
[2016-07-02] MEDS ORDERED: ASPIRIN 81 MG CHEW PO STA (22:24)
[2016-07-03 00:02] VITALS: BMI 30.4
[2016-07-03] MEDS ORDERED: INFLUENZA VACCINE (3YR+) 60 MCG/0.5 ML SYRINGE IM ONE (00:02)
[2016-07-03] MEDS: ACETAMINOPHEN TAB 325 MG TAB PO PRN ×2 (00:41→23:55)
[2016-07-03] MEDS: PANTOPRAZOLE 40 MG TABLET PO SCH (06:59)
[2016-07-03] MEDS ORDERED: NON-FORMULARY DRUG (Ensure 1 CAN) PO SCH (07:30)
[2016-07-03] MEDS: ASPIRIN 81 MG CHEW PO SCH (08:23)
[2016-07-03] MEDS ORDERED: LACTULOSE 200 GM/300 ML (FROM 1/2 GAL JUG) PO PRN (09:00)
--- NOTE | 2016-07-03 11:04 | P.CNNES ---
History of Present Illness Consult date: 07/03/16 Reason for Consult: Patient with weakness and possible TIA. History of Present Illness: This patient is a 70-year-old right-handed white male who was in his usual state of health until yesterday morning when he continue to experience some right-sided weakness. Apparently the symptoms that started on Monday in which she had fallen out of bed. He had fallen onto his tailbone due to weakness. He was noted to have right-sided weakness in both arm and leg. He was having difficulty using his right hand to write and this was noted by the family. Due to these findings he was brought into the emergency room yesterday for further evaluation. His clinical history suggesting possibility of stroke. He was sent for a computed tomography scan of the brain which revealed only atrophy and chronic white matter ischemic changes. There was no evidence of acute stroke or hemorrhage. He was not a candidate for TPA as his symptoms had occurred today before. He was noted in the ER is having right-sided weakness by Dr. Rodriguez. He has no previous history of stroke. He was admitted to the hospital where he is evaluated now on the medical floor. He states he did not express any headache but does have evidence of slurred speech. He is noted to have right-sided facial droop. He has difficulty holding his right arm up as well due to weakness. The patient mentions that he has no previous history of TIA or stroke. Stroke risk factors include hyperlipidemia and hypertension in the past. Patient states he does take one baby aspirin but not on a regular basis. He has now been admitted and neurology has been consulted for further evaluation and recommendations. Review of Systems Constitutional: Denies chills, Denies fever Eyes: denies blurred vision, denies pain Ears, nose, mouth and throat: Denies headache, Denies sore throat Cardiovascular: Denies chest pain, Denies shortness of breath Respiratory: Denies cough Gastrointestinal: Denies abdominal pain, Denies diarrhea, Denies nausea, Denies vomiting Musculoskeletal: Denies myalgias Integumentary: Denies pruritus, Denies rash Neurological: Reports aphasia, Reports change in speech, Reports paralysis, Reports paresthesias, Denies numbness, Denies weakness Psychiatric: Denies anxiety, Denies depression Endocrine: Denies fatigue, Denies weight change Past Medical History Past Medical History: GI Bleed, Hyperlipidemia, Hypertension Additional Past Medical History / Comment(s): chronic back pain; cortisone injections for neck pain; gastric ulcer History of Any Multi-Drug Resistant Organisms: None Reported Past Surgical History: No Surgical Hx Reported Additional Past Surgical History / Comment(s): colonoscopy and EGD Past Anesthesia/Blood Transfusion Reactions: No Reported Reaction Past Psychological History: No Psychological Hx Reported Smoking Status: Never smoker Past Alcohol Use History: Rare Past Drug Use History: None Reported - Past Family History Father Family Medical History: Myocardial Infarction (CT) Mother Family Medical History: No Reported History Additional Family Medical History / Comment(s): Pernicious anemia monitor and sister. Brother with Parkinson's Brother(s) Additional Family Medical History / Comment(s): parkinsons Sister(s) Family Medical History: Cancer Additional Family Medical History / Comment(s): breast cancer Medications and Allergies Home Medications Medication Instructions Recorded Confirmed Type Cholecalciferol [Vitamin D3] 2,000 unit PO HS@209901/03/16 07/02/16 History Dutasteride [Avodart] 0.5 mg PO HS@209901/03/16 07/02/16 History Lisinopril [Zestril] 5 mg PO HS@209901/03/16 07/02/16 History L.acidoph,Paracasei, B.lactis 1 cap PO HS@209906/16/16 07/02/16 History [Probiotic] Lactulose 10 gm PO DAILY@0900 PRN 06/16/16 07/02/16 History Acetaminophen Tab [Tylenol Tab] 650 mg PO Q4H PRN 07/02/16 07/02/16 History Atorvastatin [Lipitor] 10 mg PO HS@209907/02/16 07/02/16 History Ensure 1 can PO TID-W/MEALS 07/02/16 07/02/16 History Finasteride [Proscar] 5 mg PO HS@209907/02/16 07/02/16 History Omeprazole 20 mg PO DAILY@0600 07/02/16 07/02/16 History Allergies Allergy/AdvReac Type Severity Reaction Status Date / Time No Known Allergies Allergy Verified 07/02/16 20:11 Physical Examination - Vital Signs Vital Signs: Vital Signs Temp Pulse Pulse Resp BP BP Pulse Ox 07/03/16 07:55 97.5 F L 73 20 198/91 98 02/12/17 05:55 98.6 F 94 18 146/66 96 07/03/16 03:55 77 16 173/90 98 07/03/16 01:55 73 16 173/100 98 07/03/16 00:55 65 16 170/82 96 07/02/16 23:55 68 16 180/87 98 07/02/16 22:55 68 16 166/78 96 07/02/16 22:44 97.8 F 69 18 148/72 96 Intake and Output 07/02/16 07/03/16 07/03/16 22:59 06:59 14:59 Intake Total 200 840 Balance 200 840 Intake: IV 200 600 Sodium Chloride 0.9% 1, 200 600 000 ml @ 100 mls/hr IV . Q10H [facility] Rx#:[id number] Oral 240 Other: Voiding Method Urinal # Voids 2 Weight 88 kg - Constitutional General appearance: average body habitus, cooperative - EENT EENT: PERRL, mucous membranes moist - Respiratory Respiratory: lungs clear, normal breath sounds - Cardiovascular Cardiovascular: regular rate, normal S1, normal S2 Extremities: no peripheral edema bilaterally - Gastrointestinal Gastrointestinal: normoactive bowel sounds - Integumentary Integumentary: normal - Neurologic Cranial nerve examination: PERRL, EOMI, VFF, V1/V2/V3 grossly intact, tongue midline, intact gag reflex, facial droop (Patient has a right upper motor neuron facial weakness.), normal palatal elevation Speech examination: motor aphasia Sensorimotor examination: intact Motor examination - right side: 3/5: biceps, triceps, wrist flexion, wrist extension, home companion, hip flexors, knee extensors, dorsiflexion, toe extension (EHL) , plantarflexion Motor examination - left side: 5/5: biceps, triceps, wrist flexion, wrist extension, home companion, hip flexors, knee extensors, dorsiflexion, toe extension (EHL) , plantarflexion Detailed sensory examination: intact Reflex and gait examination: intact Reflexes: 1+: ankle, bicep, knee, tricep - Musculoskeletal Musculoskeletal: no pain - Psychiatric Psychiatric: mood/affect appropriate, cooperative Results - Laboratory Findings CBC and BMP: 07/02/16 19:47 07/02/16 19:47 Assessment and Plan (1) Acute ischemic left MCA stroke Status: Acute Code(s): I63.512 - CEREB INFRC D/T UNSP OCCLS OR STENOS OF LEFT MID CEREB ART (2) Hyperlipidemia Status: Acute Code(s): E78.5 - HYPERLIPIDEMIA, UNSPECIFIED (3) Anemia Status: Acute Code(s): D64.9 - ANEMIA, UNSPECIFIED (4) Vasovagal syncope Status: Acute Code(s): R55 - SYNCOPE AND COLLAPSE Plan: This patient is a 70-year-old male admitted with sudden onset of right-sided weakness that started 2 days ago. He was brought into the emergency room yesterday where he was evaluated in the ER by Dr. Rodriguez. His NIH stroke scale was noted to be 5.0. He was not a candidate for TPA as he was outside of the therapeutic window. Symptoms had occurred 24 hours prior to his evaluation in the ER. He was admitted to hospital after undergoing a computed tomography scan of the brain. CAT scan of the brain failed to reveal any evidence of acute stroke. His neurological examination at this time reveals right-sided weakness as well as mild aphasia and right facial droop. These findings are consistent with an acute left hemispheric stroke. We have recommended a complete stroke evaluation for the patient. He is to continue on aspirin daily for secondary stroke prevention pending his further stroke workup. His overall prognosis at this time remains guarded. Time with Patient: Greater than 30
--- NOTE | 2016-07-03 13:28 | P.HPIM ---
History of Present Illness H&P Date: 07/03/16 Chief Complaint: Right sided weakness Patient is a 70-year-old male was brought in to [facility] emergency room for evaluation due to right sided weakness. Patient states that he fell out of bed and he landed on his buttock, subsequently he started having weakness involving the right upper extremity and right lower extremity and some slurred speech patient was also unable to sign his name, he was evaluated in the emergency room computed tomography scan of the brain did not reveal any evidence of acute hemorrhagic or ischemic stroke he was admitted to telemetry floor for further evaluation and treatment, neurology consultation was requested. Patient was admitted 1 month ago to [facility] at that time he had presyncope he was found to have severe anemia, requiring 2 units of red blood cell transfusion during that admission, patient underwent EGD and colonoscopy that failed to reveal any significant abnormality. Patient had evidence of medical debility he was transferred to [facility] for rehab. He states they are about 3 weeks prior to readmission. Past Medical History Past Medical History: GI Bleed, Hyperlipidemia, Hypertension Additional Past Medical History / Comment(s): chronic back pain; cortisone injections for neck pain; gastric ulcer History of Any Multi-Drug Resistant Organisms: None Reported Past Surgical History: No Surgical Hx Reported Additional Past Surgical History / Comment(s): colonoscopy and EGD Past Anesthesia/Blood Transfusion Reactions: No Reported Reaction Past Psychological History: No Psychological Hx Reported Smoking Status: Never smoker Past Alcohol Use History: Rare Past Drug Use History: None Reported - Past Family History Father Family Medical History: Myocardial Infarction (NM) Mother Family Medical History: No Reported History Additional Family Medical History / Comment(s): Pernicious anemia monitor and sister. Brother with Parkinson's Brother(s) Additional Family Medical History / Comment(s): parkinsons Sister(s) Family Medical History: Cancer Additional Family Medical History / Comment(s): breast cancer Medications and Allergies Home Medications Medication Instructions Recorded Confirmed Type Cholecalciferol [Vitamin D3] 2,000 unit PO HS@209901/03/16 07/02/16 History Dutasteride [Avodart] 0.5 mg PO HS@209901/03/16 07/02/16 History Lisinopril [Zestril] 5 mg PO HS@209901/03/16 07/02/16 History L.acidoph,Paracasei, B.lactis 1 cap PO HS@209906/16/16 07/02/16 History [Probiotic] Lactulose 10 gm PO DAILY@0900 PRN 06/16/16 07/02/16 History Acetaminophen Tab [Tylenol Tab] 650 mg PO Q4H PRN 07/02/16 07/02/16 History Atorvastatin [Lipitor] 10 mg PO HS@209907/02/16 07/02/16 History Ensure 1 can PO TID-W/MEALS 07/02/16 07/02/16 History Finasteride [Proscar] 5 mg PO HS@209907/02/16 07/02/16 History Omeprazole 20 mg PO DAILY@0600 07/02/16 07/02/16 History Allergies Allergy/AdvReac Type Severity Reaction Status Date / Time No Known Allergies Allergy Verified 07/02/16 20:11 Physical Exam Vitals: Vital Signs Temp Pulse Pulse Resp BP BP Pulse Ox 07/03/16 11:20 97.4 F L 73 20 175/85 97 07/03/16 07:55 97.5 F L 73 20 198/91 98 07/03/16 05:55 98.6 F 94 18 146/66 96 07/03/16 03:55 77 16 173/90 98 07/03/16 01:55 73 16 173/100 98 07/03/16 00:55 65 16 170/82 96 07/02/16 23:55 68 16 180/87 98 07/02/16 22:55 68 16 166/78 96 07/02/16 22:44 97.8 F 69 18 148/72 96 Intake and Output 07/02/16 07/03/16 07/03/16 22:59 06:59 14:59 Intake Total 200 840 Balance 200 840 Intake: IV 200 600 Sodium Chloride 0.9% 1, 200 600 000 ml @ 100 mls/hr IV . Q10H [facility] Rx#:[id number] Oral 240 Other: Voiding Method Urinal # Voids 2 2 Weight 88 kg In general patient is alert and oriented, speech is a little bit slow HEENT head normocephalic and atraumatic Neck is supple no JVD no goiter no lymphadenopathy Chest exam reveals a few scattered crackles no wheezing Cardiac exam reveals regular heart sounds S1 and S2 no gallops no murmurs Abdomen is soft nontender no organomegaly with normal bowel sounds Extremity exam reveals no edema no cyanosis or clubbing Neurological examination reveals speech to be slow, and patient is somewhat struggling to find words, cranial nerves II-12 are intact There is minimal weakness in the right upper extremity and right lower extremity as compared to the left, weakness is very mild and can be rated at 4.5 out of 5 on the right as compared to 5 out of 5 on the left I could not appreciate any sensory deficit reflexes are 2+ symmetrical and plantars are downward bilaterally Results CBC & Chem 7: 07/02/16 19:47 07/02/16 19:47 Thrombosis Risk Factor Assmnt - Choose All That Apply Any of the Below Risk Factors Present?: Yes Each Factor Represents 1 point: Obesity (BMI >25) Other Risk Factors: Yes Each Risk Factor Represents 2 Points: Age 61-74 years Other congenital or acquired thrombophilia - If yes, enter type in comment: No Thrombosis Risk Factor Assessment Total Risk Factor Score: 3 Thrombosis Risk Factor Assessment Level: Moderate Risk Assessment and Plan Plan: #1 right sided weakness possible new ischemic stroke #2 underlying history of hypertension #3 underlying history of hyperlipidemia #4 recent admission was anemia patient had evidence of gastritis he is maintained on Protonix #5 recent fall Patient had echocardiogram and carotid Doppler done last month, results were reviewed and seem to be within normal limits There is no evidence of atrial fibrillation on telemetry tracing during this admission and during the last admission Neurology consultation was requested Will continue to monitor patient very closely continue aspirin therapy daily Will follow
--- NOTE | 2016-07-03 14:30 | XR ---
EXAMINATION TYPE: XR Hip Complete RT DATE OF EXAM: 07/03/2016 2:18 PM COMPARISON: NONE HISTORY: Fall, unable to bear weight TECHNIQUE: 2 view right hip FINDINGS: Osteoarthritic degenerative changes present. No acute fractures evident. Cam deformity may be present, chronic situation. Vascular calcification is present. IMPRESSION: 1. No acute osseous abnormality.
--- NOTE | 2016-07-03 14:30 | XR ---
EXAMINATION TYPE: XR lumbar spine 2 or 3V DATE OF EXAM: 07/03/2016 2:18 PM COMPARISON: NONE HISTORY: Recent fall cannot bear weight on TECHNIQUE: 3 view lumbar spine FINDINGS: There is loss of disc at L5-S1 with vacuum disc phenomenon. Narrowing of the L4-5 disc heig ht and posterior L3-4 disc height is present. There 5 lumbar-type vertebral bodies. Pedicles are intact. Vertebral body heights are preserved IMPRESSION: 1. Degenerative disc change L5-S1 posteriorly at L4-5
[2016-07-03] MEDS: SODIUM CHLORIDE 0.9% 1,000 ML IV SCH ×3 (15:22→15:23)
[2016-07-03] MEDS ORDERED: DUTASTERIDE 0.5 MG PO SCH (21:00)
[2016-07-03] MEDS: LISINOPRIL 5 MG TAB PO SCH (21:43)
[2016-07-03] MEDS: CHOLECALCIFEROL 1,000 UNIT TAB PO SCH (21:43)
[2016-07-03] MEDS: LACTOBACILLUS ACIDOPH & BULGAR 1 EACH PACKET PO SCH (21:43)
[2016-07-03] MEDS: FINASTERIDE 5 MG TAB PO SCH (21:43)
[2016-07-03] MEDS: ATORVASTATIN 10 MG TAB PO SCH (21:43)
[2016-07-04] MEDS: ACETAMINOPHEN TAB 325 MG TAB PO PRN (04:20)
[2016-07-04] MEDS: SODIUM CHLORIDE 0.9% 1,000 ML IV SCH (04:45)
--- NOTE | 2016-07-04 07:33 | MR ---
EXAMINATION TYPE: MR brain wo con DATE OF EXAM: 07/04/2016 6:42 AM COMPARISON: NONE HISTORY: Acute left hemispheric stroke CONTRAST: Performed utilizing 0 mL intravenous Omniscan gadolinium contrast. TECHNIQUE: Multiplanar, multiecho imaging on a 3.0 Kerline magnet is performed through the brain. Stud y is performed within 24 hours of arrival to the hospital. The craniovertebral junction is normal. The pituitary is normal. Diffusion-weighted imaging is performed. There is a focal area of increased signal adjacent to the l eft lateral ventricle extending from the coronal radiata compatible with an acute focal ischemic area . No additional abnormal hyperintensities are present. There is increased signal within the brainstem compatible with some white matter ischemic changes. Pe riventricular white matter hyperintensity is present compatible with confluent white matter ischemic changes. Ventricles and sulci are prominent for the patient age. Mild mucosal thickening is within the anterior ethmoid air cells. Remaining paranasal sinuses are harpal ar. Mastoid air cells are clear. IMPRESSIONS: 1. Acute focal ischemic area left posterior periventricular white matter. 2. Prominent atrophy with chronic appearing periventricular white matter ischemic changes.
[2016-07-04] MEDS: PANTOPRAZOLE 40 MG TABLET PO SCH (08:23)
[2016-07-04] MEDS: ASPIRIN 81 MG CHEW PO SCH (08:23)
[2016-07-04 08:57] LABS: Anisocytosis Moderate; Basophils # (A) 0.1 k/uL (0-0.2); Basophils % (A) 1 %; CH 22.1; CHCM 28.5; Eosinophils # (A) 0.2 k/uL (0-0.7); Eosinophils % (A) 3 %; HCT 36.8 % (39.0-53.0); HDW 3.85; Hypochromasia Marked; Luc # (Auto) 0.12; Luc % (Auto) 3; Lymphocytes # (A) 0.7 k/uL (1.0-4.8); Lymphocytes % (A) 15 %; MCH 23.1 pg (25.0-35.0); MCHC 29.8 g/dL (31.0-37.0); MCV 77.4 fL (80.0-100.0); Mean Platelet Volume 7.7; Microcytosis Moderate; Monocytes # (A) 0.3 k/uL (0-1.0); Monocytes % (A) 5 %; Neutrophils # (A) 3.5 k/uL (1.3-7.7); Neutrophils % (A) 73 %; Poikilocytosis Slight; RBC 4.76 m/uL (4.30-5.90); RDW 21.3 % (11.5-15.5); WBC 4.8 k/uL (3.8-10.6); WBC (Perox) 4.95
[2016-07-04 09:01] LABS: ALT 37 U/L (21-72); AST 22 U/L (17-59); Alkaline Phosphatase 68 U/L (38-126); Anion Gap 10 mmol/L; Blood Urea Nitrogen 14 mg/dL (9-20); Calcium 9.2 mg/dL (8.4-10.2); Carbon Dioxide 26 mmol/L (22-30); Chloride 107 mmol/L (98-107); Glucose 115 mg/dL (74-99); Non-African American GFR(MDRD) >60 (>60 ml/min/1.73 sqM); Potassium 4.1 mmol/L (3.5-5.1); Sodium 143 mmol/L (137-145); Total Bilirubin 0.6 mg/dL (0.2-1.3); Total Protein 6.6 g/dL (6.3-8.2)
[2016-07-04 10:10] LABS: Cholesterol 157 mg/dL (<200); HDL Cholesterol 34 mg/dL (40-60); Triglycerides 207 mg/dL (<150)
[2016-07-04] MEDS ORDERED: ENALAPRILAT 1.25 MG/ML 1 ML VIAL IVP PRN (10:33)
--- NOTE | 2016-07-04 10:33 | P.PN ---
Subjective Patient presented with right-sided weakness. Computed tomography scan of the brain was negative for stroke. However MRI of the brain showing acute ischemia in the left posterior periventricular white matter. Patient is on aspirin. Neurology is following. Lying in bed comfortably. Still having right-sided weakness. Denies any chest pain, shortness of breath, nausea or vomiting, bowel movement changes or urinary symptoms Objective - Vital Signs Vital signs: Vital Signs Temp 96.9 F L 07/04/16 08:00 Pulse 64 07/04/16 08:00 Resp 20 07/04/16 08:00 BP 187/81 07/04/16 08:00 Pulse Ox 98 07/04/16 08:00 Intake & Output 07/03/16 07/04/16 07/04/16 18:59 06:59 18:59 Intake Total 2000 1200 100 Output Total 1250 300 Balance 2000 -50 -200 Weight 91.5 kg Intake: IV 1400 1200 Sodium Chloride 0.9% 1, 1400 1200 000 ml @ 100 mls/hr IV . Q10H [facility] Rx#:[id number] Oral 600 100 Output: Urine 1250 300 Other: Voiding Method Urinal Urinal # Voids 2 1 - Exam Head normocephalic Neck supple Lungs clear to auscultation bilaterally no wheezing or crackles Heart regular rate and rhythm S1-S2, no rub or gallop Abdomen is soft nontender nondistended positive bowel sounds no hepatosplenomegaly Extremities no edema Neuro alert and orientated to 2. 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 Lower extremity strength 4 out of 5 weaker on the right. Evidence of slurred speech. - Labs CBC & Chem 7: 07/04/16 08:33 07/04/16 08:33 Labs: Abnormal Lab Results - Last 24 Hours (Table) 07/04/16 07/04/16 07/04/16 Range/Units 08:33 08:33 08:33 Hgb 11.0 L (13.0-17.5) gm/dL Hct 36.8 L (39.0-53.0) % MCV 77.4 L (80.0-100.0) fL MCH 23.1 L (25.0-35.0) pg MCHC 29.8 L (31.0-37.0) g/dL RDW 21.3 H (11.5-15.5) % Lymphocytes # 0.7 L (1.0-4.8) k/uL Glucose 115 H (74-99) mg/dL Triglycerides 207 H (<150) mg/dL HDL Cholesterol 34 L (40-60) mg/dL Assessment and Plan Plan: 1. Acute CVA: MRI of the brain showing acute ischemia on the left posterior ventricular white matter. Computed tomography scan of the brain was negative. Patient had echo and carotid Doppler last month and were within normal limits. Vision is followed by neurology. Continue aspirin and statin. Continue physical therapy. Continue with telemetry monitoring, no evidence of atrial fibrillation on telemetry. 2. Essential hypertension: With elevated blood pressures. Blood pressure 187/ 81 this morning. We'll have blood pressure rechecked after lisinopril given. We'll add IV Vasotec as needed for systolic blood pressure greater than 160 3. Hyperlipidemia 4. Recent admission with anemia patient had EGD completed showing antral ulcer continue Protonix 5. Recent fall DVT prophylaxis Lovenox
[2016-07-04] MEDS: SERTRALINE 100 MG TAB PO SCH (14:21)
[2016-07-04] MEDS: ENOXAPARIN 40 MG/0.4 ML SYRINGE SQ SCH (14:21)
--- NOTE | 2016-07-04 19:37 | P.PN ---
Subjective This patient is a 70 year old male seen yesterday on Neurology consultation for evaluation of acute stroke. The patient's neurological examination yesterday revealed evidence of significant right-sided hemiparesis and mild aphasia. Patient was sent for MRI of the brain today which did reveal an area of acute ischemia involving the left posterior ventricular white matter in the left parietal lobe. This be consistent with acute stroke. He also underwent x-ray of the lumbar spine which revealed degenerative disc change at L5-S1 and posteriorly at L4-L5 levels. We did update the patient on the results of the MRI which indicated an acute stroke. His recent carotid Doppler and echocardiogram results were normal which were done a month ago. Patient should be considered for dual platelet therapy with combination of Plavix and aspirin. He is to continue on telemetry to rule out possibility of intermittent paroxysmal atrial fibrillation. Would also consider loop recorder placement for further assessment. Overall the patient seems to be doing fairly well. His blood pressure has been slightly elevated most of today. His medications are being closely monitored and adjusted by internal medicine. We will continue further follow-up for the patient. He would be a candidate for outpatient physical therapy and stroke rehabilitation. We will continue to follow his progress closely during this admission. Objective - Vital Signs Vital signs: Vital Signs Temp 97.5 F L 07/04/16 12:00 Pulse 70 07/04/16 12:00 Resp 20 07/04/16 12:00 BP 144/84 07/04/16 12:00 Pulse Ox 98 07/04/16 12:00 Intake & Output 07/03/16 07/04/16 07/04/16 18:59 06:59 18:59 Intake Total 2000 1200 100 Output Total 1250 300 Balance 1999 -50 -200 Weight 91.5 kg Intake: IV 1400 1200 Sodium Chloride 0.9% 1, 1400 1200 000 ml @ 100 mls/hr IV . Q10H [facility] Rx#:[id number] Oral 600 100 Output: Urine 1250 300 Other: Voiding Method Urinal Urinal # Voids 2 1 - Exam Physical Examination: PHYSICAL EXAMINATION: Patient is resting comfortably in bed. VITAL SIGNS: Blood pressure is [160/76]. Heart rate is [76]. Respiration is [20] . Temperature is [97.0]. HEENT: Head is atraumatic, neck is supple, there were no carotid bruits. CHEST: Lungs are clear to auscultation and percussion. CARDIAC: S1, S2 normal rate and rhythm. There is no murmur. ABDOMEN: Soft and nontender. Bowel sounds are present. EXTREMITIES: There is no pedal edema. Peripheral pulses are present. Neurological examination: Patient's neurological examination is unchanged from yesterday. He continues to have right-sided hemiparesis and right facial droop. - Labs CBC & Chem 7: 07/04/16 08:33 07/04/16 08:33 Labs: Abnormal Lab Results - Last 24 Hours (Table) 07/04/16 07/04/16 07/04/16 Range/Units 08:33 08:33 08:33 Hgb 11.0 L (13.0-17.5) gm/dL Hct 36.8 L (39.0-53.0) % MCV 77.4 L (80.0-100.0) fL MCH 23.1 L (25.0-35.0) pg MCHC 29.8 L (31.0-37.0) g/dL RDW 21.3 H (11.5-15.5) % Lymphocytes # 0.7 L (1.0-4.8) k/uL Glucose 115 H (74-99) mg/dL Triglycerides 207 H (<150) mg/dL HDL Cholesterol 34 L (40-60) mg/dL Assessment and Plan (1) Acute ischemic left MCA stroke Status: Acute Code(s): I63.512 - CEREB INFRC D/T UNSP OCCLS OR STENOS OF LEFT MID CEREB ART (2) Hyperlipidemia Status: Acute Code(s): E78.5 - HYPERLIPIDEMIA, UNSPECIFIED (3) Anemia Status: Acute Code(s): D64.9 - ANEMIA, UNSPECIFIED (4) Vasovagal syncope Status: Acute Code(s): R55 - SYNCOPE AND COLLAPSE Plan: This patient is a 70-year-old male admitted with sudden onset of right-sided weakness that started 2 days ago. He was brought into the emergency room yesterday where he was evaluated in the ER by Dr. Rodriguez. His NIH stroke scale was noted to be 5.0. He was not a candidate for TPA as he was outside of the therapeutic window. Symptoms had occurred 24 hours prior to his evaluation in the ER. He was admitted to hospital after undergoing a computed tomography scan of the brain. CAT scan of the brain failed to reveal any evidence of acute stroke. His neurological examination at this time reveals right-sided weakness as well as mild aphasia and right facial droop. These findings are consistent with an acute left hemispheric stroke. We have recommended a complete stroke evaluation for the patient. He is to continue on aspirin daily for secondary stroke prevention pending his further stroke workup. The patient underwent MRI of the brain today. MRI does reveal evidence of an acute stroke involving the left posterior periventricular region of the left parietal lobe. This be consistent with this current findings of right-sided hemiparesis. We have recommended the patient to be considered for dual platelet therapy with combination of Plavix and aspirin. His carotid Doppler and echocardiogram results done last month were unremarkable. Would also recommend close monitoring for paroxysmal atrial fibrillation in this patient. Patient to be considered for outpatient physical therapy upon discharge. His overall prognosis at this time remains guarded.
[2016-07-04] MEDS: ATORVASTATIN 10 MG TAB PO SCH (21:55)
[2016-07-04] MEDS: LISINOPRIL 5 MG TAB PO SCH (21:56)
[2016-07-04] MEDS: LACTOBACILLUS ACIDOPH & BULGAR 1 EACH PACKET PO SCH (21:56)
[2016-07-04] MEDS: CHOLECALCIFEROL 1,000 UNIT TAB PO SCH (21:56)
[2016-07-04] MEDS: FINASTERIDE 5 MG TAB PO SCH (21:56)
[2016-07-05 07:11] LABS: Anisocytosis Moderate; Basophils # (A) 0.1 k/uL (0-0.2); Basophils % (A) 1 %; CH 22.4; CHCM 29.1; Eosinophils # (A) 0.1 k/uL (0-0.7); Eosinophils % (A) 2 %; HCT 36.9 % (39.0-53.0); HDW 3.81; HGB 10.6 gm/dL (13.0-17.5); Hypochromasia Marked; Luc # (Auto) 0.22; Luc % (Auto) 3; Lymphocytes % (A) 15 %; MCH 21.9 pg (25.0-35.0); MCHC 28.7 g/dL (31.0-37.0); MCV 76.5 fL (80.0-100.0); Mean Platelet Volume 7.1; Microcytosis Moderate; Monocytes # (A) 0.5 k/uL (0-1.0); Monocytes % (A) 8 %; Neutrophils # (A) 4.8 k/uL (1.3-7.7); Neutrophils % (A) 71 %; Poikilocytosis Slight; RBC 4.83 m/uL (4.30-5.90); RDW 21.7 % (11.5-15.5); WBC 6.8 k/uL (3.8-10.6); WBC (Perox) 7.31
[2016-07-05 07:34] LABS: ALT 41 U/L (21-72); AST 21 U/L (17-59); Alkaline Phosphatase 67 U/L (38-126); Anion Gap 12 mmol/L; Blood Urea Nitrogen 13 mg/dL (9-20); Calcium 9.4 mg/dL (8.4-10.2); Carbon Dioxide 24 mmol/L (22-30); Chloride 108 mmol/L (98-107); Glucose 100 mg/dL (74-99); Non-African American GFR(MDRD) >60 (>60 ml/min/1.73 sqM); Potassium 4.2 mmol/L (3.5-5.1); Sodium 144 mmol/L (137-145); Total Bilirubin 0.6 mg/dL (0.2-1.3); Total Protein 6.4 g/dL (6.3-8.2)
[2016-07-05] MEDS: SODIUM CHLORIDE 0.9% 1,000 ML IV SCH (08:01)
[2016-07-05] MEDS: PANTOPRAZOLE 40 MG TABLET PO SCH (08:01)
[2016-07-05] MEDS: ENOXAPARIN 40 MG/0.4 ML SYRINGE SQ SCH (09:26)
[2016-07-05] MEDS: SERTRALINE 100 MG TAB PO SCH (09:26)
[2016-07-05] MEDS: ASPIRIN 81 MG CHEW PO SCH (09:27)
--- NOTE | 2016-07-05 09:42 | EEG ---
DATE OF SERVICE: 07/04/2016 INDICATIONS FOR EXAMINATION: This patient is a 70-year-old male being evaluated for acute left hemispheric stroke. Patient presents with slurred speech and right-sided weakness. AGE: 70Y EEG FINDINGS: A routine 21-channel, awake digital EEG recording was accomplished utilizing the 10 to 20 international system with bipolar and referential montages. The background activity in the most alert resting state consists of a low to medium amplitude, poorly developed and poorly sustained 6 Hz activity over the posterior head regions. This posterior rhythm attenuates to eye opening. There is a small amount of low amplitude 18 to 20 Hz beta activity seen maximally over the anterior head regions. Muscle and movement artifact was observed on a few occasions during the tracing. Hyperventilation was not performed. Photic stimulation at flash frequencies of 2 to 30 Hz produced a minimal occipital driving response. No epileptiform discharges were seen. IMPRESSION: This EEG is moderately abnormal in a diffuse fashion due to slowing of the EEG background. The EEG failed to reveal any focal, lateralized or epileptiform abnormalities. Clinical correlation is recommended.
--- NOTE | 2016-07-05 16:36 | P.CONS ---
History of Present Illness - Chief Complaint Gait disturbance/right hemiparesthesias - History of Present Illness I had the opportunity to see patient for inpatient rehab consultation with regard to gait disturbance and right hemiparesthesias, today. He was admitted to [facility] July 02 with acute onset of the above. Seen by Dr. Mulu Nascimento for stroke. Initial head CT demonstrated atrophy and chronic white matter change only. Chest x-ray and right hip x-rays negative. LS-spine x-ray with degenerative change L4, 5. MRI with left posterior paraventricular acute change as well as the diffuse atrophy and white matter change. PT reports moderate to maximal assistance for mobility. Balance poor. OT reports moderate assistance for upper dressing and maximal assistance for lower dressing. Maximal to total for bathing. Maximal for toileting. Speech therapy evaluated and assessed mild deficits. Previous functional sick: As elicited from patient corroborative by . 70- year-old right-handed white male who is lives and 2 floor home with . Doesn't smoke or drink. Retired. does the cooking, laundry, driving. Patient admitted with standing shower and gait without device. Regular doctors Dr. Muniz. Family history of [place] in father. Review of Systems Review of systems: ENT: Denies sneezes or discharge. Eyes: Denies discharge or photophobia. Cardiac: Denies chest pain or palpitation. Pulmonary: Denies cough or shortness of breath. Gastrointestinal: Denies nausea, emesis, constipation, diarrhea. Genitourinary: Denies discharge or frequency. Musculoskeletal: Denies muscle or bone aches. Neurologic: Right-sided weakness and some balance issues. Slurring of speech. Endocrine: Denies shakes or sweats. Oncology: Denies cancers. Dermatologic: Denies rash, itching, pruritus. ALLERGY/immunology: Denies sneezes, rashes. Past Medical History Past Medical History: GI Bleed, Hyperlipidemia, Hypertension Additional Past Medical History / Comment(s): chronic back pain; cortisone injections for neck pain; gastric ulcer History of Any Multi-Drug Resistant Organisms: None Reported Past Surgical History: No Surgical Hx Reported Additional Past Surgical History / Comment(s): colonoscopy and EGD Past Anesthesia/Blood Transfusion Reactions: No Reported Reaction Past Psychological History: No Psychological Hx Reported Smoking Status: Never smoker Past Alcohol Use History: Rare Past Drug Use History: None Reported - Past Family History Father Family Medical History: Myocardial Infarction ([place]) Mother Family Medical History: No Reported History Additional Family Medical History / Comment(s): Pernicious anemia monitor and sister. Brother with Parkinson's Brother(s) Additional Family Medical History / Comment(s): parkinsons Sister(s) Family Medical History: Cancer Additional Family Medical History / Comment(s): breast cancer Medications and Allergies Home Medications Medication Instructions Recorded Confirmed Type Cholecalciferol [Vitamin D3] 2,000 unit PO HS@209901/03/16 07/02/16 History Dutasteride [Avodart] 0.5 mg PO HS@209901/03/16 07/02/16 History Lisinopril [Zestril] 5 mg PO HS@209901/03/16 07/02/16 History L.acidoph,Paracasei, B.lactis 1 cap PO HS@209906/16/16 07/02/16 History [Probiotic] Lactulose 10 gm PO DAILY@0900 PRN 06/16/16 07/02/16 History Acetaminophen Tab [Tylenol Tab] 650 mg PO Q4H PRN 07/02/16 07/02/16 History Atorvastatin [Lipitor] 10 mg PO HS@209907/02/16 07/02/16 History Ensure 1 can PO TID-W/MEALS 07/02/16 07/02/16 History Finasteride [Proscar] 5 mg PO HS@2100 07/02/16 07/02/16 History Omeprazole 20 mg PO DAILY@0600 07/02/16 07/02/16 History Allergies Allergy/AdvReac Type Severity Reaction Status Date / Time No Known Allergies Allergy Verified 07/02/16 20:11 Physical Exam Vitals: Vital Signs Temp Pulse Resp BP Pulse Ox 07/05/16 12:36 92 L 07/05/16 12:00 97.0 F L 76 18 165/94 96 07/05/16 07:40 97.6 F 73 18 169/82 92 L 07/05/16 04:00 97.3 F L 76 18 173/87 93 L 07/05/16 00:00 97.5 F L 83 18 181/88 93 L 07/04/16 20:00 98.1 F 79 20 160/86 95 Intake and Output 07/05/16 07/05/16 07/05/16 06:59 14:59 22:59 Intake Total 300 Output Total 275 Balance 300 -275 Intake: Oral 300 Output: Urine 275 Other: Voiding Method Urinal # Voids 1 Weight 91 kg Skin: Good color, texture, turgor. General: Medium to overweight build and comfortable appearance. Head: Normocephalic, atraumatic. Eyes: Symmetric. Pupils equal round. Ears: Symmetric. Hearing within normal limits. Mouth: Clear. Neck: Supple. Carotid without bruit. Cardiac: Regular rate and rhythm. Lungs: Clear anteriorly and posteriorly. Abdomen: Soft active nontender. Extremities: Normal tone. Neurological: Mental status: Alert, cooperative, pleasant. Cranial nerves: Symmetric facial tone and trapezius. Motor: Normal strength and isolation left arm and leg. Right arm with 4-4+ or 5 weakness right hand and right ankle. Sensation: Intact throughout. DTRs: Symmetric and equal throughout. Mobility: Sits and stands with minimal assistance for safety. reports that patient requires assistance for mobility in room, again for safety. Results CBC & Chem 7: 07/05/16 06:48 07/05/16 06:48 Labs: Abnormal Lab Results - Last 24 Hours (Table) 07/05/16 07/05/16 Range/Units 06:48 06:48 Hgb 10.6 L (13.0-17.5) gm/dL Hct 36.9 L (39.0-53.0) % MCV 76.5 L (80.0-100.0) fL MCH 21.9 L (25.0-35.0) pg MCHC 28.7 L (31.0-37.0) g/dL RDW 21.7 H (11.5-15.5) % Chloride 108 H (98-107) mmol/L Glucose 100 H (74-99) mg/dL CT Scan - head: report reviewed (Atrophy and chronic white matter change.) MRI - head: report reviewed (Acute left posterior periventricular change. Signs of chronic atrophy and white matter changes well.) Assessment and Plan (1) Acute ischemic left MCA stroke Status: Acute Plan: Impression: 1. Gait disturbance. 2. Acute left-sided stroke, MCA, with result in right hemiparesthesias. 3. Hypertension. 4. Hyperlipidemia. 5. History of GI bleed. Comments and plan: At this time safety concerns noted. Patient has demonstrated the ability tolerate and benefit from therapies. Have discussed inpatient rehab with patient and and both are agreeable. In fact patient volunteered possible inpatient rehab.
--- NOTE | 2016-07-05 17:43 | P.PN ---
Subjective Principal diagnosis: Stroke Patient is a 70-year-old male admitted was left hemispheric stroke with right sided weakness and slurred speech MRI of the brain confirmed left hemispheric stroke . Patient was started on aspirin he is followed by neurology he is improving gradually he is receiving physical therapy and occupational therapy Objective - Vital Signs Vital signs: Vital Signs Temp 97.0 F L 07/05/16 12:00 Pulse 76 07/05/16 12:00 Resp 18 07/05/16 12:00 BP 165/94 07/05/16 12:00 Pulse Ox 92 L 07/05/16 12:36 Intake & Output 07/04/16 07/05/16 07/05/16 18:59 06:59 18:59 Intake Total 1420 300 Output Total 500 200 275 Balance 920 100 -275 Weight 91 kg Intake: IV 1200 Sodium Chloride 0.9% 1, 1200 000 ml @ 100 mls/hr IV . Q10H [facility] Rx#:[id number] Oral 220 300 Output: Urine 500 200 275 Other: Voiding Method Urinal # Voids 1 1 - Exam HEENT head normocephalic and atraumatic Neck is supple no JVD no goiter no lymphadenopathy Chest is clear to auscultation no crackles no wheezing Cardiac exam reveals regular heart sounds no murmurs Abdomen is soft nontender no organomegaly Extremity exam reveals no edema no cyanosis or clubbing Neurological examination reveals a right sided weakness with right sided facial drooping and slurred speech otherwise no new findings - Labs CBC & Chem 7: 07/05/16 06:48 07/05/16 06:48 Labs: Abnormal Lab Results - Last 24 Hours (Table) 07/05/16 07/05/16 Range/Units 06:48 06:48 Hgb 10.6 L (13.0-17.5) gm/dL Hct 36.9 L (39.0-53.0) % MCV 76.5 L (80.0-100.0) fL MCH 21.9 L (25.0-35.0) pg MCHC 28.7 L (31.0-37.0) g/dL RDW 21.7 H (11.5-15.5) % Chloride 108 H (98-107) mmol/L Glucose 100 H (74-99) mg/dL Assessment and Plan Plan: #1 right sided weakness with evidence of new ischemic stroke patient started on aspirin regimen #2 underlying history of hypertension #3 underlying history of hyperlipidemia #4 recent admission with anemia patient had evidence of gastritis he is maintained on Protonix #5 recent fall Patient had echocardiogram and carotid Doppler done last month, results were reviewed and seem to be within normal limits There is no evidence of atrial fibrillation on telemetry tracing during this admission and during the last admission Neurology consultation was requested Will continue to monitor patient very closely continue aspirin therapy daily Will follow
--- NOTE | 2016-07-05 18:48 | P.PN ---
Subjective This patient is a 70 year old male seen yesterday on Neurology consultation for evaluation of acute stroke. The patient's neurological examination yesterday revealed evidence of significant right-sided hemiparesis and mild aphasia. Patient was sent for MRI of the brain today which did reveal an area of acute ischemia involving the left posterior ventricular white matter in the left parietal lobe. This be consistent with acute stroke. He also underwent x-ray of the lumbar spine which revealed degenerative disc change at L5-S1 and posteriorly at L4-L5 levels. We did update the patient on the results of the MRI which indicated an acute stroke. His recent carotid Doppler and echocardiogram results were normal which were done a month ago. Patient should be considered for dual platelet therapy with combination of Plavix and aspirin. He is to continue on telemetry to rule out possibility of intermittent paroxysmal atrial fibrillation. Would also consider loop recorder placement for further assessment. Overall the patient seems to be doing fairly well. His blood pressure has been slightly elevated most of today. His medications are being closely monitored and adjusted by internal medicine. We will continue further follow-up for the patient. He would be a candidate for outpatient physical therapy and stroke rehabilitation. Patient was seen today by Dr. Palacios. He is a good candidate for inpatient rehab. He seems to be making slow progress. Would consider this patient for dual platelet therapy in combination of Plavix and aspirin as noted above. His overall prognosis at this time remains guarded. We will continue to follow his progress closely during this admission. Objective - Vital Signs Vital signs: Vital Signs Temp 97.0 F L 07/05/16 12:00 Pulse 76 07/05/16 12:00 Resp 18 07/05/16 12:00 BP 165/94 07/05/16 12:00 Pulse Ox 92 L 07/05/16 12:36 Intake & Output 07/04/16 07/05/16 07/05/16 18:59 06:59 18:59 Intake Total 1420 300 Output Total 500 200 275 Balance 920 100 -275 Weight 91 kg Intake: IV 1200 Sodium Chloride 0.9% 1, 1200 000 ml @ 100 mls/hr IV . Q10H [facility] Rx#:[id number] Oral 220 300 Output: Urine 500 200 275 Other: Voiding Method Urinal # Voids 1 1 - Exam Physical Examination: PHYSICAL EXAMINATION: Patient is resting comfortably in bed. VITAL SIGNS: Blood pressure is [129/74]. Heart rate is [86]. Respiration is [18] . Temperature is [97.7]. HEENT: Head is atraumatic, neck is supple, there were no carotid bruits. CHEST: Lungs are clear to auscultation and percussion. CARDIAC: S1, S2 normal rate and rhythm. There is no murmur. ABDOMEN: Soft and nontender. Bowel sounds are present. EXTREMITIES: There is no pedal edema. Peripheral pulses are present. Neurological examination: Patient's neurological examination is unchanged from yesterday. He continues to have right-sided hemiparesis and right facial droop. - Labs CBC & Chem 7: 07/05/16 06:48 07/05/16 06:48 Labs: Abnormal Lab Results - Last 24 Hours (Table) 07/05/16 07/05/16 Range/Units 06:48 06:48 Hgb 10.6 L (13.0-17.5) gm/dL Hct 36.9 L (39.0-53.0) % MCV 76.5 L (80.0-100.0) fL MCH 21.9 L (25.0-35.0) pg MCHC 28.7 L (31.0-37.0) g/dL RDW 21.7 H (11.5-15.5) % Chloride 108 H (98-107) mmol/L Glucose 100 H (74-99) mg/dL Assessment and Plan (1) Acute ischemic left MCA stroke Status: Acute Code(s): I63.512 - CEREB INFRC D/T UNSP OCCLS OR STENOS OF LEFT MID CEREB ART (2) Hyperlipidemia Status: Acute Code(s): E78.5 - HYPERLIPIDEMIA, UNSPECIFIED (3) Anemia Status: Acute Code(s): D64.9 - ANEMIA, UNSPECIFIED (4) Vasovagal syncope Status: Acute Code(s): R55 - SYNCOPE AND COLLAPSE Plan: This patient is a 70-year-old male admitted with sudden onset of right-sided weakness that started 2 days ago. He was brought into the emergency room yesterday where he was evaluated in the ER by Dr. Rodriguez. His NIH stroke scale was noted to be 5.0. He was not a candidate for TPA as he was outside of the therapeutic window. Symptoms had occurred 24 hours prior to his evaluation in the ER. He was admitted to hospital after undergoing a computed tomography scan of the brain. CAT scan of the brain failed to reveal any evidence of acute stroke. His neurological examination at this time reveals right-sided weakness as well as mild aphasia and right facial droop. These findings are consistent with an acute left hemispheric stroke. We have recommended a complete stroke evaluation for the patient. He is to continue on aspirin daily for secondary stroke prevention pending his further stroke workup. The patient underwent MRI of the brain today. MRI does reveal evidence of an acute stroke involving the left posterior periventricular region of the left parietal lobe. This be consistent with this current findings of right-sided hemiparesis. We have recommended the patient to be considered for dual platelet therapy with combination of Plavix and aspirin. His carotid Doppler and echocardiogram results done last month were unremarkable. Would also recommend close monitoring for paroxysmal atrial fibrillation in this patient. Patient was seen today by Dr. Palacios. He is felt to be a good candidate for inpatient rehab. He continues to show some improvement with right-sided hemiparesis. We will continue close neurological follow-up for this patient. His overall prognosis at this time remains guarded.
[2016-07-05] MEDS: LACTOBACILLUS ACIDOPH & BULGAR 1 EACH PACKET PO SCH (22:54)
[2016-07-05] MEDS: CHOLECALCIFEROL 1,000 UNIT TAB PO SCH (22:55)
[2016-07-05] MEDS: LISINOPRIL 5 MG TAB PO SCH (22:55)
[2016-07-05] MEDS: FINASTERIDE 5 MG TAB PO SCH (22:55)
[2016-07-05] MEDS: ATORVASTATIN 10 MG TAB PO SCH (22:56)
[2016-07-06 06:33] LABS: Anisocytosis Moderate; Basophils # (A) 0.1 k/uL (0-0.2); Basophils % (A) 1 %; CH 22.2; Eosinophils # (A) 0.1 k/uL (0-0.7); Eosinophils % (A) 3 %; HCT 37.5 % (39.0-53.0); HDW 3.74; HGB 10.8 gm/dL (13.0-17.5); Hypochromasia Marked; Luc # (Auto) 0.15; Luc % (Auto) 3; Lymphocytes # (A) 1.1 k/uL (1.0-4.8); Lymphocytes % (A) 23 %; MCH 22.1 pg (25.0-35.0); MCHC 28.9 g/dL (31.0-37.0); MCV 76.4 fL (80.0-100.0); Mean Platelet Volume 7.4; Microcytosis Moderate; Monocytes # (A) 0.3 k/uL (0-1.0); Monocytes % (A) 6 %; Neutrophils # (A) 3.1 k/uL (1.3-7.7); Neutrophils % (A) 64 %; Poikilocytosis Slight; RDW 21.5 % (11.5-15.5); WBC 4.9 k/uL (3.8-10.6)
[2016-07-06] MEDS: PANTOPRAZOLE 40 MG TABLET PO SCH (06:43)
[2016-07-06 07:03] LABS: ALT 34 U/L (21-72); AST 20 U/L (17-59); Alkaline Phosphatase 71 U/L (38-126); Anion Gap 10 mmol/L; Blood Urea Nitrogen 14 mg/dL (9-20); Calcium 9.7 mg/dL (8.4-10.2); Carbon Dioxide 29 mmol/L (22-30); Chloride 106 mmol/L (98-107); Glucose 97 mg/dL (74-99); Non-African American GFR(MDRD) >60 (>60 ml/min/1.73 sqM); Potassium 4.3 mmol/L (3.5-5.1); Sodium 145 mmol/L (137-145); Total Bilirubin 0.6 mg/dL (0.2-1.3); Total Protein 6.6 g/dL (6.3-8.2)
--- NOTE | 2016-07-06 08:08 | P.PN ---
Subjective This patient is a 70 year old male seen yesterday on Neurology consultation for evaluation of acute stroke. The patient's neurological examination yesterday revealed evidence of significant right-sided hemiparesis and mild aphasia. Patient was sent for MRI of the brain today which did reveal an area of acute ischemia involving the left posterior ventricular white matter in the left parietal lobe. This be consistent with acute stroke. He also underwent x-ray of the lumbar spine which revealed degenerative disc change at L5-S1 and posteriorly at L4-L5 levels. We did update the patient on the results of the MRI which indicated an acute stroke. His recent carotid Doppler and echocardiogram results were normal which were done a month ago. Patient should be considered for dual platelet therapy with combination of Plavix and aspirin. He is to continue on telemetry to rule out possibility of intermittent paroxysmal atrial fibrillation. Would also consider loop recorder placement for further assessment. Overall the patient seems to be doing fairly well. His blood pressure has been slightly elevated most of today. His medications are being closely monitored and adjusted by internal medicine. We will continue further follow-up for the patient. He would be a candidate for outpatient physical therapy and stroke rehabilitation. Patient was seen today by Dr. Palacios. He is a good candidate for inpatient rehab. He seems to be making slow progress. Patient states he was able to work with physical therapy yesterday and ambulated with the use of a walker. He continues to show right- sided hemiparesis following his recent stroke. He is anticipated for possible transfer to the inpatient rehab unit possibly today or tomorrow. Would consider this patient for dual platelet therapy in combination of Plavix and aspirin as noted above. His overall prognosis at this time remains guarded. We will continue to follow his progress closely during this admission. Objective - Vital Signs Vital signs: Vital Signs Temp 98.3 F 07/06/16 04:00 Pulse 68 07/06/16 04:00 Resp 18 07/06/16 04:00 BP 154/84 07/06/16 04:00 Pulse Ox 94 L 07/06/16 04:00 Intake & Output 07/05/16 07/06/16 07/06/16 18:59 06:59 18:59 Intake Total 600 Output Total 275 500 Balance 325 -500 Weight 86.5 kg Intake: Oral 600 Output: Urine 275 500 Other: Voiding Method Urinal - Exam Physical Examination: PHYSICAL EXAMINATION: Patient is resting comfortably in bed. VITAL SIGNS: Blood pressure is [154/86]. Heart rate is [68]. Respiration is [18] . Temperature is [98.3]. HEENT: Head is atraumatic, neck is supple, there were no carotid bruits. CHEST: Lungs are clear to auscultation and percussion. CARDIAC: S1, S2 normal rate and rhythm. There is no murmur. ABDOMEN: Soft and nontender. Bowel sounds are present. EXTREMITIES: There is no pedal edema. Peripheral pulses are present. Neurological examination: Patient's neurological examination is unchanged from yesterday. He continues to have right-sided hemiparesis and right facial droop. - Labs CBC & Chem 7: 07/06/16 06:09 07/06/16 06:09 Labs: Abnormal Lab Results - Last 24 Hours (Table) 07/06/16 Range/Units 06:09 Hgb 10.8 L (13.0-17.5) gm/dL Hct 37.5 L (39.0-53.0) % MCV 76.4 L (80.0-100.0) fL MCH 22.1 L (25.0-35.0) pg MCHC 28.9 L (31.0-37.0) g/dL RDW 21.5 H (11.5-15.5) % Assessment and Plan (1) Acute ischemic left MCA stroke Status: Acute Code(s): I63.512 - CEREB INFRC D/T UNSP OCCLS OR STENOS OF LEFT MID CEREB ART (2) Hyperlipidemia Status: Acute Code(s): E78.5 - HYPERLIPIDEMIA, UNSPECIFIED (3) Anemia Status: Acute Code(s): D64.9 - ANEMIA, UNSPECIFIED (4) Vasovagal syncope Status: Acute Code(s): R55 - SYNCOPE AND COLLAPSE Plan: This patient is a 70-year-old male who is being followed for acute left hemispheric stroke. He continues to show slow improvement since his initial presentation. He underwent MRI of the brain which did reveal evidence of an acute stroke involving the left posterior periventricular region of the left parietal lobe. He was seen by Dr. Palacios for inpatient rehab placement. He seems to be a very good candidate for this. He was able to work with physical therapy and was ambulating with the use of a walker. Patient is to continue with dual platelet therapy for secondary stroke prevention. Would encourage ongoing PT OT evaluation while inpatient. He will be evaluated for possible transfer to the inpatient rehab unit possibly today or tomorrow. His overall prognosis at this time remains guarded. We will continue close neurological follow-up for the patient during this admission.
[2016-07-06] MEDS: ENOXAPARIN 40 MG/0.4 ML SYRINGE SQ SCH (09:27)
[2016-07-06] MEDS: SERTRALINE 100 MG TAB PO SCH (09:27)
[2016-07-06] MEDS: ASPIRIN 81 MG CHEW PO SCH (09:27)
[2016-07-06] MEDS: SUCRALFATE 1 GM TAB PO SCH ×2 (19:11→21:15)
[2016-07-06] MEDS: LISINOPRIL 5 MG TAB PO SCH (23:44)
[2016-07-06] MEDS: CHOLECALCIFEROL 1,000 UNIT TAB PO SCH (23:44)
[2016-07-06] MEDS: FINASTERIDE 5 MG TAB PO SCH (23:45)
[2016-07-06] MEDS: ATORVASTATIN 10 MG TAB PO SCH (23:45)
[2016-07-06] MEDS: LACTOBACILLUS ACIDOPH & BULGAR 1 EACH PACKET PO SCH (23:45)
[2016-07-07 06:33] LABS: Anisocytosis Moderate; Basophils # (A) 0.1 k/uL (0-0.2); Basophils % (A) 1 %; CH 22.2; CHCM 28.8; Eosinophils # (A) 0.3 k/uL (0-0.7); Eosinophils % (A) 5 %; HCT 36.3 % (39.0-53.0); HDW 3.68; HGB 10.4 gm/dL (13.0-17.5); Hypochromasia Marked; Luc # (Auto) 0.16; Luc % (Auto) 3; Lymphocytes # (A) 1.3 k/uL (1.0-4.8); Lymphocytes % (A) 25 %; MCH 22.1 pg (25.0-35.0); MCHC 28.7 g/dL (31.0-37.0); MCV 76.9 fL (80.0-100.0); Mean Platelet Volume 7.1; Microcytosis Moderate; Monocytes # (A) 0.3 k/uL (0-1.0); Monocytes % (A) 6 %; Neutrophils # (A) 3.1 k/uL (1.3-7.7); Neutrophils % (A) 61 %; Poikilocytosis Slight; RBC 4.71 m/uL (4.30-5.90); RDW 21.6 % (11.5-15.5); WBC 5.1 k/uL (3.8-10.6); WBC (Perox) 5.47
[2016-07-07 06:43] LABS: ALT 38 U/L (21-72); AST 24 U/L (17-59); Alkaline Phosphatase 65 U/L (38-126); Anion Gap 10 mmol/L; Blood Urea Nitrogen 24 mg/dL (9-20); Calcium 9.4 mg/dL (8.4-10.2); Carbon Dioxide 26 mmol/L (22-30); Chloride 106 mmol/L (98-107); Glucose 99 mg/dL (74-99); Non-African American GFR(MDRD) >60 (>60 ml/min/1.73 sqM); Potassium 4.3 mmol/L (3.5-5.1); Sodium 142 mmol/L (137-145); Total Bilirubin 0.5 mg/dL (0.2-1.3); Total Protein 6.4 g/dL (6.3-8.2)
[2016-07-07] MEDS: SUCRALFATE 1 GM TAB PO SCH ×4 (07:03→21:20)
[2016-07-07] MEDS: PANTOPRAZOLE 40 MG TABLET PO SCH (07:03)
[2016-07-07] MEDS: SERTRALINE 100 MG TAB PO SCH (09:00)
[2016-07-07] MEDS: ENOXAPARIN 40 MG/0.4 ML SYRINGE SQ SCH (09:00)
[2016-07-07] MEDS: CLOPIDOGREL 75 MG TAB PO SCH (09:00)
[2016-07-07] MEDS: ASPIRIN 81 MG CHEW PO SCH (09:01)
[2016-07-07] MEDS ORDERED: LISINOPRIL 5 MG TAB PO STA (10:39)
[2016-07-07] MEDS ORDERED: SODIUM FERRIC GLUCONAT-SUCROSE 125 MG in SODIUM CHLORIDE 0.9% 100 ML IVPB ONE (11:00)
--- NOTE | 2016-07-07 11:46 | P.DS ---
Providers Date of admission: 07/02/16 22:21 Expected date of discharge: 07/07/16 Attending physician: Marilia Deleon Consults: 07/05/16 13:21 Consult Physician Routine Consulting Provider: Francis Palacios Consult Reason/Comments: possible rehab admission, stroke Do you want consulting provider notified?: Yes Dr. Barnes Primary care physician: [facility] Course: Discharge diagnosis 1. Acute CVA: MRI of the brain showing acute ischemia on the left posterior ventricular white matter. Computed tomography scan of the brain was negative. Patient had echo and carotid Doppler last month and were within normal limits. No A. fib on telemetry. Neurology started patient on aspirin and Plavix during this admission. 2. Essential hypertension: With uncontrolled blood pressures. Increase lisinopril to 10 mg daily. 3. Hyperlipidemia 4. Recent admission with anemia patient had EGD completed showing antral ulcer continue Protonix and Carafate 5. Recent fall Hospital course This is a 75-year-old male who presented with right-sided weakness and fall. He is also having slurred speech. Initial computed tomography scan the brain did not reveal any acute changes. Neurology was consulted. He was admitted to the telemetry floor. Patient did have an MRI of the brain which did reveal evidence of an acute stroke. MRI showed acute ischemia in the left posterior ventricle white matter. Patient had echo and carotids done last month which were within normal limits. He remained on telemetry and there is no evidence of any arrhythmias. Neurology started patient on aspirin and Plavix during this admission. Patient has had some improvement in the right-sided weakness. However he is still requiring help. Evaluated by physical therapy and they're recommending inpatient rehab. Patient was evaluated by Dr. Palacios and hopefully patient will be discharged to [facility] in inpatient rehabilitation program when cleared by his insurance company. Patient also had elevated blood pressures and his lisinopril be increased to 10 mg daily. Patient is medically stable for discharge. Please refer to chart for any further details. Patient Condition at Discharge: Stable Plan - Discharge Summary New Discharge Prescriptions: Ferrous Sulfate [Feosol] 325 mg PO BID #60 tab Discharge Medication List Cholecalciferol [Vitamin D3] 2,000 unit PO HS@209901/03/16 [History] Dutasteride [Avodart] 0.5 mg PO HS@209901/03/16 [History] L.acidoph,Paracasei, B.lactis [Probiotic] 1 cap PO HS@2100 06/16/16 [History] Lactulose 10 gm PO DAILY@0900 PRN 06/16/16 [History] Acetaminophen Tab [Tylenol] 650 mg PO Q4H PRN 07/02/16 [History] Atorvastatin [Lipitor] 10 mg PO HS@2100 07/02/16 [History] Ensure 1 can PO TID-W/MEALS 07/02/16 [History] Finasteride [Proscar] 5 mg PO HS@2100 07/02/16 [History] Aspirin 81 mg PO DAILY chew 07/07/16 [Rx] Clopidogrel [Plavix] 75 mg PO DAILY tab 07/07/16 [Rx] Ferrous Sulfate [Feosol] 325 mg PO BID #60 tab 07/07/16 [Rx] Lisinopril [Zestril] 10 mg PO HS@2100 #0 07/07/16 [Rx] Pantoprazole [Protonix] 40 mg PO DAILY@0600 tablet. 07/07/16 [Rx] Sertraline [Zoloft] 100 mg PO DAILY tab 07/07/16 [Rx] Sucralfate [Carafate] 1 gm PO ACHS tab 07/07/16 [Rx] Follow up Appointment(s)/Referral(s): Judit jones Gonzalez, [NON-STAFF] - Angle Muniz DO [Primary Care Provider] - 1 Week Activity/Diet/Wound Care/Special Instructions: Diet: cardiac Activity: as tolerated Ok to discharge to inpatient rehab check CBC in 3 days Discharge Disposition: OTHER INSTITUTION NOT DEFINED
[2016-07-07 17:57] LABS: Glucose,Whole Blood 95 mg/dL (75-99)
[2016-07-07] MEDS: ATORVASTATIN 10 MG TAB PO SCH (21:19)
[2016-07-07] MEDS: LISINOPRIL 5 MG TAB PO SCH (21:19)
[2016-07-07] MEDS: LACTOBACILLUS ACIDOPH & BULGAR 1 EACH PACKET PO SCH (21:20)
[2016-07-07] MEDS: CHOLECALCIFEROL 1,000 UNIT TAB PO SCH (21:20)
[2016-07-07] MEDS: FINASTERIDE 5 MG TAB PO SCH (21:20)
[2016-07-08 06:12] LABS: Anisocytosis Moderate; Basophils # (A) 0.1 k/uL (0-0.2); Basophils % (A) 1 %; CH 22.5; CHCM 28.9; Eosinophils # (A) 0.2 k/uL (0-0.7); Eosinophils % (A) 3 %; HCT 36.8 % (39.0-53.0); HDW 3.74; HGB 10.7 gm/dL (13.0-17.5); Hypochromasia Marked; Luc # (Auto) 0.17; Luc % (Auto) 3; Lymphocytes # (A) 1.1 k/uL (1.0-4.8); Lymphocytes % (A) 20 %; MCH 22.5 pg (25.0-35.0); MCHC 29.1 g/dL (31.0-37.0); MCV 77.3 fL (80.0-100.0); Mean Platelet Volume 7.2; Microcytosis Moderate; Monocytes # (A) 0.3 k/uL (0-1.0); Monocytes % (A) 6 %; Neutrophils # (A) 3.6 k/uL (1.3-7.7); Neutrophils % (A) 67 %; Poikilocytosis Slight; RBC 4.76 m/uL (4.30-5.90); RDW 21.9 % (11.5-15.5); WBC 5.3 k/uL (3.8-10.6); WBC (Perox) 5.62
[2016-07-08 06:20] LABS: ALT 38 U/L (21-72); AST 20 U/L (17-59); Alkaline Phosphatase 68 U/L (38-126); Anion Gap 11 mmol/L; Blood Urea Nitrogen 18 mg/dL (9-20); Calcium 9.7 mg/dL (8.4-10.2); Carbon Dioxide 27 mmol/L (22-30); Chloride 105 mmol/L (98-107); Glucose 98 mg/dL (74-99); Non-African American GFR(MDRD) >60 (>60 ml/min/1.73 sqM); Potassium 4.1 mmol/L (3.5-5.1); Sodium 143 mmol/L (137-145); Total Bilirubin 0.5 mg/dL (0.2-1.3); Total Protein 6.4 g/dL (6.3-8.2)
[2016-07-08] MEDS: PANTOPRAZOLE 40 MG TABLET PO SCH (07:01)
[2016-07-08] MEDS: SUCRALFATE 1 GM TAB PO SCH ×2 (07:01→13:11)
[2016-07-08 08:51] VITALS: RESP 16
[2016-07-08] MEDS: ASPIRIN 81 MG CHEW PO SCH (08:54)
[2016-07-08] MEDS: ENOXAPARIN 40 MG/0.4 ML SYRINGE SQ SCH (08:54)
[2016-07-08] MEDS: CLOPIDOGREL 75 MG TAB PO SCH (08:54)
[2016-07-08] MEDS: SERTRALINE 100 MG TAB PO SCH (08:55)
[2016-07-08 12:19] VITALS: BP 126/81; PULSE 70; TEMP 97.4
== END 2016-07-08 13:38 | DRG 65 ==
LOC: EC 19:32 → 6SEL 22:21
PROVIDERS: ADMIT Internal Medicine; ATTEND Internal Medicine
DX: I63.512 Cerebral infarction due to unspecified occlusion or stenosis of left middle cerebral artery (principal); G81.91 Hemiplegia, unspecified affecting right dominant side; N17.9 Acute kidney failure, unspecified; D64.9 Anemia, unspecified; I11.0 Hypertensive heart disease with heart failure; I50.9 Heart failure, unspecified; E78.5 Hyperlipidemia, unspecified; M51.36 Other intervertebral disc degeneration, lumbar region; M51.37 Other intervertebral disc degeneration, lumbosacral region; R47.01 Aphasia; W06.XXXA Fall from bed, initial encounter; Z79.82 Long term (current) use of aspirin; Z82.49 Family history of ischemic heart disease and other diseases of the circulatory system; Z79.899 Other long term (current) drug therapy; Z87.11 Personal history of peptic ulcer disease
CPT/HCPCS: 36415; 70450; 70551; 71020; 72100; 73502; 80053; 80061; 82550; 82553; 83735; 84484; 85025; 85610; 85730; 90686; 93005; 94760; 95819; 99285

== ENCOUNTER 2016-12-14 16:03 | Inpatient (IN) | payer MEDICARE ==
[2016-12-14] MEDS ORDERED: SODIUM CHLORIDE 0.9% 1,000 ML IV STA (16:50)
[2016-12-14 17:05] LABS: Basophils % (A) 1 %; CH 32.3; Eosinophils # (A) 0.1 k/uL (0-0.7); Eosinophils % (A) 1 %; HCT 38.5 % (39.0-53.0); HDW 2.78; HGB 13.1 gm/dL (13.0-17.5); Luc # (Auto) 0.12; Luc % (Auto) 3; Lymphocytes % (A) 21 %; MCH 31.5 pg (25.0-35.0); MCV 92.7 fL (80.0-100.0); Mean Platelet Volume 7.8; Monocytes # (A) 0.4 k/uL (0-1.0); Monocytes % (A) 9 %; Neutrophils % (A) 66 %; RBC 4.15 m/uL (4.30-5.90); WBC 4.5 k/uL (3.8-10.6); WBC (Perox) 4.55
[2016-12-14 17:13] LABS: INR 1.2 (<1.2); Prothrombin Time 11.7 sec (9.0-12.0)
[2016-12-14 17:14] LABS: ALT 29 U/L (21-72); AST 16 U/L (17-59); Alkaline Phosphatase 77 U/L (38-126); Anion Gap 8 mmol/L; Blood Urea Nitrogen 28 mg/dL (9-20); Calcium 9.2 mg/dL (8.4-10.2); Carbon Dioxide 31 mmol/L (22-30); Chloride 102 mmol/L (98-107); Glucose 84 mg/dL (74-99); Non-African American GFR(MDRD) >60 (>60 ml/min/1.73 sqM); Potassium 4.2 mmol/L (3.5-5.1); Sodium 141 mmol/L (137-145); Total Bilirubin 0.7 mg/dL (0.2-1.3); Total Protein 6.7 g/dL (6.3-8.2)
[2016-12-14 17:19] LABS: Creatine Kinase 26 U/L (55-170)
[2016-12-14 17:30] LABS: Partial Thromboplastin Time 21.7 sec (22.0-30.0)
[2016-12-14 17:32] LABS: Creatine Kinase MB 0.4 ng/mL (0.0-2.4); Troponin I <0.012 ng/mL (0.000-0.034)
--- NOTE | 2016-12-14 17:55 | CT ---
EXAMINATION TYPE: CT brain wo con DATE OF EXAM: 12/14/2016 COMPARISON: 07/02/16 HISTORY: Patient complains of weakness. CT DLP: [address] of the brain was performed. The ventricles, basal cisterns and sulci overlying the cerebral convexities demonstrate mild enlargem ent. There is no evidence for intracranial hemorrhage or sulcal effacement. There is decreased attenuation about the periventricular white matter and deep white matter of both c erebral hemispheres, compatible with chronic small vessel ischemia. Differential diagnosis does inclu de demyelination. No mass effects are seen.No midline shift. Osseous calvarium is intact. If symptoms persist consider MRI. IMPRESSION: 1. Age related atrophic and chronic small vessel ischemic change without acute intracranial process s een at this time.
--- NOTE | 2016-12-14 17:56 | XR ---
EXAMINATION TYPE: XR chest 2V DATE OF EXAM: 12/14/2016 COMPARISON: 07/02/2016 HISTORY: Shortness of breath TECHNIQUE: Frontal and lateral views of the chest are obtained. FINDINGS: Scattered senescent parenchymal changes noted. Hyperinflation compatible with COPD. No evidence for infiltrate. No evidence for atelectasis. Heart size is stable. Mediastinal structures are stable and grossly unremarkable. No evidence for hilar prominence. Degenerative changes dorsal spine. IMPRESSION: 1. No evidence for acute pulmonary disease.
--- NOTE | 2016-12-14 19:43 | ED ---
General Adult HPI - General Chief complaint: Weakness Stated complaint: CONFUSION, LETHARGY Time Seen by Provider: 12/14/16 16:29 Source: EMS Mode of arrival: EMS Limitations: altered mental status, physical limitation - History of Present Illness Initial comments: 71 years old gentleman has a history of CVA June this year and he has been doing a rehab pretty nicely, his noticed for the last 2 days he has been feeling tired and sleeping more today she noticed that he was quite diaphoretic he had a fever and his appetite been low and noticed him shaking. He denies any headaches no chest pain or shortness of breath no abdominal pain no frequency urgency dysuria - Related Data Home Medications Medication Instructions Recorded Confirmed Cholecalciferol [Vitamin D3] 2,000 unit PO DAILY@1200 01/03/16 12/14/16 L.acidoph,Paracasei, B.lactis 1 cap PO PC-SUPPER 06/16/16 12/14/16 [Probiotic] Acetaminophen Tab [Tylenol] 975 mg PO TID PRN 07/02/16 12/14/16 Atorvastatin [Lipitor] 10 mg PO HS 07/02/16 12/14/16 Aspirin 81 mg PO QAM 12/14/16 12/14/16 Clopidogrel [Plavix] 75 mg PO QAM 12/14/16 12/14/16 Dutasteride [Avodart] 0.5 mg PO PC-SUPPER 12/14/16 12/14/16 Lisinopril [Zestril] 15 mg PO QAM 12/14/16 12/14/16 Pantoprazole [Protonix] 40 mg PO QAM 12/14/16 12/14/16 Polyethylene Glycol 3350 [Miralax] 17 gm PO QAM 12/14/16 12/14/16 Sertraline [Zoloft] 100 mg PO QAM 12/14/16 12/14/16 Vit C/E/Zn/Coppr/Lutein/Zeaxan 1 cap PO BID@1200,1800 12/14/16 12/14/16 [Preservision Areds 2 Softgel] amLODIPine [Norvasc] 2.5 mg PO HS 12/14/16 12/14/16 traMADol HCL [Ultram] 50 mg PO BID PRN 12/14/16 12/14/16 Allergies Allergy/AdvReac Type Severity Reaction Status Date / Time No Known Allergies Allergy Verified 12/14/16 17:00 Review of Systems ROS Statement: Those systems with pertinent positive or pertinent negative responses have been documented in the HPI. ROS Other: All systems not noted in ROS Statement are negative. Past Medical History Past Medical History: CVA/TIA, GI Bleed, Hyperlipidemia, Hypertension Additional Past Medical History / Comment(s): chronic back pain; cortisone injections for neck pain; gastric ulcer, left sided weakness History of Any Multi-Drug Resistant Organisms: None Reported Past Surgical History: No Surgical Hx Reported Additional Past Surgical History / Comment(s): colonoscopy and EGD Past Anesthesia/Blood Transfusion Reactions: No Reported Reaction Past Psychological History: No Psychological Hx Reported Smoking Status: Never smoker Past Alcohol Use History: Rare Past Drug Use History: None Reported - Past Family History Father Family Medical History: Myocardial Infarction ([place]) Mother Family Medical History: No Reported History Additional Family Medical History / Comment(s): Pernicious anemia monitor and sister. Brother with Parkinson's Brother(s) Additional Family Medical History / Comment(s): parkinsons Sister(s) Family Medical History: Cancer Additional Family Medical History / Comment(s): breast cancer General Exam - General Exam Comments Initial Comments: General: The patient is awake and alert, in no distress, and does not appear acutely ill. Does look tired but GCS is 15 Skin: Skin is warm and dry and no rashes or lesions are noted. Eye: Pupils are equal, round and reactive to light, extra-ocular movements are intact; there is normal conjunctiva bilaterally. Ears, nose, mouth and throat: There are moist mucous membranes and no oral lesions. Neck: The neck is supple, there is no tenderness or JVD. Cardiovascular: There is a regular rate and rhythm. No murmur, rub or gallop is appreciated. Respiratory: To auscultation bilateral, no wheezing no rhonchi no distress respiratory main noticed Gastrointestinal: Soft, non-distended, non-tender abdomen without masses or organomegaly noted. There is no rebound or guarding present. Bowel sounds are unremarkable. Back: There is no tenderness to palpation in the midline. There is no obvious deformity. Musculoskeletal: Normal ROM, no tenderness, There is no pedal edema. There is no calf tenderness or swelling. No cords were appreciated. Neurological: CN II-XII intact, Cranial nerves III through XII are intact. There are no obvious motor or sensory deficits. Coordination appears grossly intact. Speech is normal. Psychiatric: Cooperative, appropriate mood & affect, normal judgment. Limitations: altered mental status, physical limitation Course Vital Signs 12/14/16 12/14/16 12/14/16 16:12 16:42 17:04 Temperature 97.6 F 99.0 F 97.5 F L Pulse Rate 68 66 66 Respiratory 16 18 16 Rate Blood Pressure 145/70 139/72 139/76 O2 Sat by Pulse 96 96 95 Oximetry 12/14/16 12/14/16 17:19 19:35 Temperature 98.4 F Pulse Rate 77 77 Respiratory 18 18 Rate Blood Pressure 134/94 111/72 O2 Sat by Pulse 95 93 L Oximetry - Reevaluation(s) Reevaluation #1: 12/14/16 19:42 Patient was reviewed at 1930, a CBC, INR, troponin, EKG, compressive metabolic panel, head CT, chest x-ray are all unremarkable pleuritic bending his urine at this point 12/14/16 20:11 Emergency reassessed at 2009, all the labs were reviewed and discussed with the and the including urinalysis all within normal range patient will be discharged home to follow with the family doctor or return to ER if symptoms get worse EKG Findings - EKG Comments: EKG Findings:: Him EKG is normal sinus rhythm ventricular rate is 65 OR interval is 128 QRS duration is 82 QT/QTc/QTc is 378/393 review of this EKG does not reveal any ST elevation noticed a T-wave inversion in leads 3 Medical Decision Making - Lab Data Result diagrams: 12/14/16 16:56 12/14/16 16:56 Lab Results 12/14/16 12/14/16 12/14/16 Range/Units 16:56 16:56 16:56 WBC 4.5 (3.8-10.6) k/uL RBC 4.15 L (4.30-5.90) m/uL Hgb 13.1 (13.0-17.5) gm/dL Hct 38.5 L (39.0-53.0) % MCV 92.7 (80.0-100.0) fL MCH 31.5 (25.0-35.0) pg MCHC 34.0 (31.0-37.0) g/dL RDW 14.0 (11.5-15.5) % Plt Count 179 (150-450) k/uL Neutrophils % 66 % Lymphocytes % 21 % Monocytes % 9 % Eosinophils % 1 % Basophils % 1 % Neutrophils # 3.0 (1.3-7.7) k/uL Lymphocytes # 1.0 (1.0-4.8) k/uL Monocytes # 0.4 (0-1.0) k/uL Eosinophils # 0.1 (0-0.7) k/uL Basophils # 0.0 (0-0.2) k/uL PT (9.0-12.0) sec INR (<1.2) APTT (22.0-30.0) sec Sodium 141 (137-145) mmol/L Potassium 4.2 (3.5-5.1) mmol/L Chloride 102 (98-107) mmol/L Carbon Dioxide 31 H (22-30) mmol/L Anion Gap 8 mmol/L BUN 28 H (9-20) mg/dL Creatinine 0.76 (0.66-1.25) mg/dL Est GFR (MDRD) Af Amer >60 (>60 ml/min/1.73 sqM) Est GFR (MDRD) Non-Af >60 (>60 ml/min/1.73 sqM) Glucose 84 (74-99) mg/dL Calcium 9.2 (8.4-10.2) mg/dL Total Bilirubin 0.7 (0.2-1.3) mg/dL AST 16 L (17-59) U/L ALT 29 (21-72) U/L Alkaline Phosphatase 77 (38-126) U/L Total Creatine Kinase 26 L (55-170) U/L CK-MB (CK-2) 0.4 (0.0-2.4) ng/mL CK-MB (CK-2) Rel Index 1.5 Troponin I <0.012 (0.000-0.034) ng/mL Total Protein 6.7 (6.3-8.2) g/dL Albumin 4.1 (3.5-5.0) g/dL Urine Color Urine Appearance (Clear) Urine pH (5.0-8.0) Ur Specific [place] (1.001-1.035) Urine Protein (Negative) Urine Glucose (UA) (Negative) Urine Ketones (Negative) Urine Blood (Negative) Urine Nitrite (Negative) Urine Bilirubin (Negative) Urine Urobilinogen (<2.0) mg/dL Ur Leukocyte Esterase (Negative) 12/14/16 12/14/16 Range/Units 17:07 19:35 WBC (3.8-10.6) k/uL RBC (4.30-5.90) m/uL Hgb (13.0-17.5) gm/dL Hct (39.0-53.0) % MCV (80.0-100.0) fL MCH (25.0-35.0) pg MCHC (31.0-37.0) g/dL RDW (11.5-15.5) % Plt Count (150-450) k/uL Neutrophils % % Lymphocytes % % Monocytes % % Eosinophils % % Basophils % % Neutrophils # (1.3-7.7) k/uL Lymphocytes # (1.0-4.8) k/uL Monocytes # (0-1.0) k/uL Eosinophils # (0-0.7) k/uL Basophils # (0-0.2) k/uL PT 11.7 (9.0-12.0) sec INR 1.2 H (<1.2) APTT 21.7 L (22.0-30.0) sec Sodium (137-145) mmol/L Potassium (3.5-5.1) mmol/L Chloride (98-107) mmol/L Carbon Dioxide (22-30) mmol/L Anion Gap mmol/L BUN (9-20) mg/dL Creatinine (0.66-1.25) mg/dL Est GFR (MDRD) Af Amer (>60 ml/min/1.73 sqM) Est GFR (MDRD) Non-Af (>60 ml/min/1.73 sqM) Glucose (74-99) mg/dL Calcium (8.4-10.2) mg/dL Total Bilirubin (0.2-1.3) mg/dL AST (17-59) U/L ALT (21-72) U/L Alkaline Phosphatase (38-126) U/L Total Creatine Kinase (55-170) U/L CK-MB (CK-2) (0.0-2.4) ng/mL CK-MB (CK-2) Rel Index Troponin I (0.000-0.034) ng/mL Total Protein (6.3-8.2) g/dL Albumin (3.5-5.0) g/dL Urine Color Yellow Urine Appearance Clear (Clear) Urine pH 6.5 (5.0-8.0) Ur Specific [place] 1.020 (1.001-1.035) Urine Protein Negative (Negative) Urine Glucose (UA) Negative (Negative) Urine Ketones Negative (Negative) Urine Blood Negative (Negative) Urine Nitrite Negative (Negative) Urine Bilirubin Negative (Negative) Urine Urobilinogen <2.0 (<2.0) mg/dL Ur Leukocyte Esterase Negative (Negative) Disposition Clinical Impression: Generalized weakness Disposition: HOME SELF-CARE Condition: Good Instructions: Ischemic Stroke (DC) Additional Instructions: Pulse was encouraged to increase dehydration his blood pressure slightly in the lower side and return to the ER if symptoms get worse or he develops high fever Referrals: Angle Muniz DO [Primary Care Provider] - 1-2 days
[2016-12-14 19:47] LABS: Appearance,Urine Clear (Clear); Bilirubin,Urine Negative (Negative); Glucose,Urine (UA) Negative (Negative); Ketones,Urine Negative (Negative); Leukocyte Esterase,Urine Negative (Negative); Nitrite,Urine Negative (Negative); PH, Urine 6.5 (5.0-8.0); Protein,Urine Negative (Negative); UA Billing (MACRO vs. MICRO) CHEM; Urobilinogen,Urine <2.0 mg/dL (<2.0)
[2016-12-14] MEDS ORDERED: SODIUM CHLORIDE 0.9% 1,000 ML IV ONE (20:26)
[2016-12-14] MEDS ORDERED: ONDANSETRON 4 MG/2 ML VIAL IVP STA (20:29)
[2016-12-14] MEDS ORDERED: ACETAMINOPHEN TAB 325 MG TAB PO PRN (20:29)
[2016-12-14] MEDS ORDERED: traMADol 50 MG TAB PO PRN (20:29)
[2016-12-14] MEDS ORDERED: FINASTERIDE 5 MG TAB PO ONE (21:00)
[2016-12-14] MEDS ORDERED: LACTOBACILLUS ACIDOPH & BULGAR 1 EACH PACKET PO ONE (21:00)
[2016-12-14] MEDS: amLODIPine 2.5 MG TAB PO SCH (22:03)
[2016-12-14] MEDS: ATORVASTATIN 10 MG TAB PO SCH (22:03)
[2016-12-15 09:21] LABS: ALT 32 U/L (21-72); AST 16 U/L (17-59); Alkaline Phosphatase 68 U/L (38-126); Anion Gap 6 mmol/L; Blood Urea Nitrogen 16 mg/dL (9-20); Calcium 8.8 mg/dL (8.4-10.2); Carbon Dioxide 29 mmol/L (22-30); Chloride 106 mmol/L (98-107); Glucose 84 mg/dL (74-99); Non-African American GFR(MDRD) >60 (>60 ml/min/1.73 sqM); Potassium 4.2 mmol/L (3.5-5.1); Sodium 141 mmol/L (137-145); Total Bilirubin 0.8 mg/dL (0.2-1.3)
[2016-12-15 09:38] LABS: Basophils % (A) 1 %; CH 32.1; CHCM 34.6; Eosinophils # (A) 0.1 k/uL (0-0.7); Eosinophils % (A) 2 %; HDW 2.75; HGB 12.9 gm/dL (13.0-17.5); Luc # (Auto) 0.12; Luc % (Auto) 3; Lymphocytes # (A) 0.9 k/uL (1.0-4.8); Lymphocytes % (A) 21 %; MCH 32.4 pg (25.0-35.0); MCHC 34.8 g/dL (31.0-37.0); MCV 93.2 fL (80.0-100.0); Mean Platelet Volume 7.6; Monocytes # (A) 0.3 k/uL (0-1.0); Monocytes % (A) 7 %; Neutrophils # (A) 2.8 k/uL (1.3-7.7); Neutrophils % (A) 67 %; RBC 3.97 m/uL (4.30-5.90); RDW 13.3 % (11.5-15.5); WBC 4.2 k/uL (3.8-10.6); WBC (Perox) 4.39
[2016-12-15] MEDS: PANTOPRAZOLE 40 MG TABLET PO SCH (09:44)
[2016-12-15] MEDS: ASPIRIN 81 MG CHEW PO SCH (09:44)
[2016-12-15] MEDS: SERTRALINE 100 MG TAB PO SCH (09:44)
[2016-12-15] MEDS: CLOPIDOGREL 75 MG TAB PO SCH (09:44)
[2016-12-15] MEDS: HEPARIN SODIUM,PORCINE 5,000 UNIT/ML 1 ML VIAL SQ SCH ×2 (09:44→20:21)
[2016-12-15] MEDS: LISINOPRIL 5 MG TAB PO SCH (09:45)
[2016-12-15] MEDS: POLYETHYLENE GLYCOL 3350 17 GM POWD.PACK PO SCH (09:51)
--- NOTE | 2016-12-15 10:17 | P.HPIM ---
History of Present Illness H&P Date: 12/15/16 Chief Complaint: Worsening right-sided weakness and difficulty with speech This is a 71-year-old male with a known history of CVA in June who did require rehabilitation at [facility]. Patient also has a known history of hypertension, hyperlipidemia and peptic ulcer disease. Patient has been home doing well working with physical therapy at home. Difficult to obtain history from patient. He has difficulty with his words. Most information came from patient's who is very active in his care. She reports that on Monday her had been very tired and had difficulty signing a form. She states that he can usually signing his name without any difficulty. The following day patient was still sleepy and when the physical therapist came in the afternoon she noted during her exam that the patient had worsening weakness on his right side. Also patient was having difficulty forming his words. During my conversation with the patient it takes him about 10 seconds before he can respond and it's a very slow. Also, the reports patient had a low-grade temp of 99. He was initially brought into the emergency room for further evaluation via ambulance. Computed tomography scan of the brain showed no acute changes. It did show age-related atrophic and chronic small vessel ischemic change. EKG shows normal sinus rhythm. Chest x-ray was negative and UA was negative. Initially patient was then a be discharged from the emergency room but then he started to vomit. I was mostly bile. And once he came to the floor there is no further episodes of vomiting. Last bowel movement was 2 days ago. And at that time it was normal. Patient was admitted initially admitted to observation floor. He's been in sinus rhythm on monitoring analyst. He had a carotid ultrasound in May 2016 which showed no significant hemodynamic stenosis as well as an echo in May 2016 which showed an EF of 55-60% and no significant valvular disease. Patient has been taking his aspirin and Plavix daily. Neurology will be consulted. Likely patient is having a recurrent stroke affecting the right side. He is having difficulty forming words and there is significant weakness noted on that right side which appears worse than when I had evaluated him during his rehabilitation stay at [facility]. We will make patient a full admit and transfer him up to the sixth floor. Consult physical therapy, occupational therapy and speech therapy. Review of Systems Please refer to HPI otherwise unremarkable Past Medical History Past Medical History: CVA/TIA, GI Bleed, Hyperlipidemia, Hypertension Additional Past Medical History / Comment(s): chronic back pain; cortisone injections for neck pain; gastric ulcer, right sided weakness due to CVA History of Any Multi-Drug Resistant Organisms: None Reported Past Surgical History: No Surgical Hx Reported Additional Past Surgical History / Comment(s): colonoscopy and EGD WITH POLYP REMOVAL Past Anesthesia/Blood Transfusion Reactions: No Reported Reaction Past Psychological History: Depression Smoking Status: Never smoker Past Alcohol Use History: None Reported Past Drug Use History: None Reported - Past Family History Father Family Medical History: Myocardial Infarction ([place]) Mother Family Medical History: No Reported History Additional Family Medical History / Comment(s): Pernicious anemia monitor and sister. Brother with Parkinson's Brother(s) Additional Family Medical History / Comment(s): parkinsons Sister(s) Family Medical History: Cancer Additional Family Medical History / Comment(s): breast cancer Medications and Allergies Home Medications Medication Instructions Recorded Confirmed Type Cholecalciferol [Vitamin D3] 2,000 unit PO DAILY@1200 01/03/16 12/14/16 History L.acidoph,Paracasei, B.lactis 1 cap PO PC-SUPPER 06/16/16 12/14/16 History [Probiotic] Acetaminophen Tab [Tylenol] 975 mg PO TID PRN 07/02/16 12/14/16 History Atorvastatin [Lipitor] 10 mg PO HS 07/02/16 12/14/16 History Aspirin 81 mg PO QAM 12/14/16 12/14/16 History Clopidogrel [Plavix] 75 mg PO QAM 12/14/16 12/14/16 History Dutasteride [Avodart] 0.5 mg PO PC-SUPPER 12/14/16 12/14/16 History Lisinopril [Zestril] 15 mg PO QAM 12/14/16 12/14/16 History Pantoprazole [Protonix] 40 mg PO QAM 12/14/16 12/14/16 History Polyethylene Glycol 3350 [Miralax] 17 gm PO QAM 12/14/16 12/14/16 History Sertraline [Zoloft] 100 mg PO QAM 12/14/16 12/14/16 History Vit C/E/Zn/Coppr/Lutein/Zeaxan 1 cap PO BID@1200,1800 12/14/16 12/14/16 History [Preservision Areds 2 Softgel] amLODIPine [Norvasc] 2.5 mg PO HS 12/14/16 12/14/16 History traMADol HCL [Ultram] 50 mg PO BID PRN 12/14/16 12/14/16 History Allergies Allergy/AdvReac Type Severity Reaction Status Date / Time No Known Allergies Allergy Verified 12/14/16 21:51 Physical Exam Vitals: Vital Signs Temp Pulse Pulse Resp BP BP Pulse Ox 12/15/16 07:51 98.0 F 72 18 154/81 98 12/15/16 04:00 98.1 F 65 18 159/88 97 12/15/16 03:56 18 12/15/16 00:00 98.5 F 83 18 153/77 93 L 12/14/16 22:11 18 12/14/16 21:40 98.8 F 66 18 140/77 93 L 12/14/16 20:46 97.8 F 71 16 141/81 95 12/14/16 19:35 98.4 F 77 18 111/72 93 L 12/14/16 17:19 77 18 134/94 95 12/14/16 17:04 97.5 F L 66 16 139/76 95 12/14/16 16:42 99.0 F 66 18 139/72 96 12/14/16 16:12 97.6 F 68 16 145/70 96 Intake and Output 12/14/16 12/15/16 12/15/16 22:59 06:59 14:59 Intake Total 1100 Balance 1100 Intake: IV 900 Sodium Chloride 0.9% 1, 900 000 ml @ 100 mls/hr IV . Q10H ONE Rx#:[id number] Oral 200 Other: Voiding Method Urinal Urinal # Voids 2 Weight 94 kg Head normocephalic Neck supple Lungs clear to auscultation bilaterally no wheezing or crackles Heart regular rate and rhythm S1-S2, no rub or gallop Abdomen is soft nontender nondistended positive bowel sounds no hepatosplenomegaly Extremities no edema Neuro alert and orientated to name only. And we twice states that patient usually can answer these questions. 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 It's about a 3 out of 5. And right leg extremity strength is decreased as well about a 3 out of 5. Patient's speech is slow. Having difficulty with answering questions. He has a delay in response to the question Results CBC & Chem 7: 12/15/16 08:39 12/15/16 08:39 Labs: Abnormal Lab Results - Last 24 Hours (Table) 12/14/16 12/14/16 12/14/16 Range/Units 16:56 16:56 16:56 RBC 4.15 L (4.30-5.90) m/uL Hgb (13.0-17.5) gm/dL Hct 38.5 L (39.0-53.0) % Lymphocytes # (1.0-4.8) k/uL INR (<1.2) APTT (22.0-30.0) sec Carbon Dioxide 31 H (22-30) mmol/L BUN 28 H (9-20) mg/dL AST 16 L (17-59) U/L Total Creatine Kinase 26 L (55-170) U/L Total Protein (6.3-8.2) g/dL 12/14/16 12/15/16 12/15/16 Range/Units 17:07 08:39 08:39 RBC 3.97 L (4.30-5.90) m/uL Hgb 12.9 L (13.0-17.5) gm/dL Hct 37.0 L (39.0-53.0) % Lymphocytes # 0.9 L (1.0-4.8) k/uL INR 1.2 H (<1.2) APTT 21.7 L (22.0-30.0) sec Carbon Dioxide (22-30) mmol/L BUN (9-20) mg/dL AST 16 L (17-59) U/L Total Creatine Kinase (55-170) U/L Total Protein 6.0 L (6.3-8.2) g/dL Thrombosis Risk Factor Assmnt - Choose All That Apply Any of the Below Risk Factors Present?: Yes Each Factor Represents 1 point: Obesity (BMI >25) Other Risk Factors: Yes Each Risk Factor Represents 2 Points: Age 61-74 years Other congenital or acquired thrombophilia - If yes, enter type in comment: No Thrombosis Risk Factor Assessment Total Risk Factor Score: 3 Thrombosis Risk Factor Assessment Level: Moderate Risk Assessment and Plan Plan: 1. Right-sided weakness with speech difficulty likely due to a new CVA. Continue aspirin and Plavix. Computed tomography scan of the brain showed no acute changes. Consult neurology. Continue telemetry monitoring. EKG showing normal sinus rhythm. Carotid ultrasound in May 2016 shows no significant hemodynamic stenosis echo May 2016 shows an EF of 55-60% with no significant valvular abnormality 2. Previous history of CVA affecting the right side in June 2016 3. Essential hypertension: Blood pressure stable. continue lisinopril and Norvasc 4. Hyperlipidemia continue Lipitor 5. Vomiting: Now resolved. Continue Zofran as needed. Tolerating regular diet. Possibly related to a viral gastroenteritis. Continue to monitor 6. History of peptic ulcer disease continue Protonix GI prophylaxis Protonix and DVT prophylaxis subcu heparin We'll change patient to a full admit. Transfer to telemetry. Consult neurology Time with Patient: Greater than 30 (Greater than 50% of the total time spent in counseling and coordination of care.I performed an examination of the patient and discussed their management with the physician Commercial Food Instructor. I have reviewed the Physician Commercial Food Instructor's notes and agree with the documented findings and plan of care)
[2016-12-15] MEDS: SUCRALFATE 1 GM TAB PO SCH ×2 (10:32→17:21)
[2016-12-15] MEDS: CHOLECALCIFEROL 1,000 UNIT TAB PO SCH (17:20)
[2016-12-15] MEDS: LACTOBACILLUS ACIDOPH & BULGAR 1 EACH PACKET PO SCH (17:21)
[2016-12-15] MEDS: VIT A,C & E-LUTEIN-MINERALS 1 EACH TAB PO SCH ×2 (17:21→17:28)
[2016-12-15] MEDS: FINASTERIDE 5 MG TAB PO SCH (17:21)
[2016-12-15] MEDS: amLODIPine 2.5 MG TAB PO SCH (20:21)
[2016-12-15] MEDS: ATORVASTATIN 10 MG TAB PO SCH (20:21)
--- NOTE | 2016-12-15 20:28 | P.CNNES ---
History of Present Illness Consult date: 12/15/16 History of Present Illness: The patient is a 71-year-old man with history of recent stroke in June 2016. He was doing fine until about 2 days ago and he had been experiencing increased weakness and difficulty walking. Get home health care. The patient has history of right-sided weakness since his stroke in June. Night any weakness on the left side. Knee change in the weakness on his right side. Any headache or dizziness or visual changes. His been no change in his speech. On aspirin and Plavix at home for stroke prevention. He had a CT of the brain today which showed age-related atrophy and chronic small vessel disease he has had a carotid ultrasound done in May which did not show any significant stenosis. He also had an echo which was unremarkable. Review of Systems ROS unobtainable: due to mental status Past Medical History Past Medical History: CVA/TIA, GI Bleed, Hyperlipidemia, Hypertension Additional Past Medical History / Comment(s): chronic back pain; cortisone injections for neck pain; gastric ulcer, right sided weakness due to CVA History of Any Multi-Drug Resistant Organisms: None Reported Past Surgical History: No Surgical Hx Reported Additional Past Surgical History / Comment(s): colonoscopy and EGD WITH POLYP REMOVAL Past Anesthesia/Blood Transfusion Reactions: No Reported Reaction Past Psychological History: Depression Smoking Status: Never smoker Past Alcohol Use History: None Reported Past Drug Use History: None Reported - Past Family History Father Family Medical History: Myocardial Infarction ([place]) Mother Family Medical History: No Reported History Additional Family Medical History / Comment(s): Pernicious anemia monitor and sister. Brother with Parkinson's Brother(s) Additional Family Medical History / Comment(s): parkinsons Sister(s) Family Medical History: Cancer Additional Family Medical History / Comment(s): breast cancer Medications and Allergies Home Medications Medication Instructions Recorded Confirmed Type Cholecalciferol [Vitamin D3] 2,000 unit PO DAILY@1200 01/03/16 12/14/16 History L.acidoph,Paracasei, B.lactis 1 cap PO PC-SUPPER 06/16/16 12/14/16 History [Probiotic] Acetaminophen Tab [Tylenol] 975 mg PO TID PRN 07/02/16 12/14/16 History Atorvastatin [Lipitor] 10 mg PO HS 07/02/16 12/14/16 History Aspirin 81 mg PO QAM 12/14/16 12/14/16 History Clopidogrel [Plavix] 75 mg PO QAM 12/14/16 12/14/16 History Dutasteride [Avodart] 0.5 mg PO PC-SUPPER 12/14/16 12/14/16 History Lisinopril [Zestril] 15 mg PO QAM 12/14/16 12/14/16 History Pantoprazole [Protonix] 40 mg PO QAM 12/14/16 12/14/16 History Polyethylene Glycol 3350 [Miralax] 17 gm PO QAM 12/14/16 12/14/16 History Sertraline [Zoloft] 100 mg PO QAM 12/14/16 12/14/16 History Vit C/E/Zn/Coppr/Lutein/Zeaxan 1 cap PO BID@1200,1800 12/14/16 12/14/16 History [Preservision Areds 2 Softgel] amLODIPine [Norvasc] 2.5 mg PO HS 12/14/16 12/14/16 History traMADol HCL [Ultram] 50 mg PO BID PRN 12/14/16 12/14/16 History Allergies Allergy/AdvReac Type Severity Reaction Status Date / Time No Known Allergies Allergy Verified 12/14/16 21:51 Physical Examination - Vital Signs Vital Signs: Vital Signs Temp Pulse Pulse Pulse Resp BP BP 12/15/16 16:00 97.0 F L 68 18 160/80 12/15/16 11:30 97.7 F 63 18 161/79 12/15/16 07:51 98.0 F 72 18 154/81 12/15/16 04:00 98.1 F 65 18 159/88 12/15/16 03:56 18 12/15/16 00:00 98.5 F 83 18 153/77 12/14/16 22:11 18 12/14/16 21:40 98.8 F 66 18 140/77 12/14/16 20:46 97.8 F 71 16 141/81 Pulse Ox 12/15/16 16:00 92 L 12/15/16 11:30 94 L 12/15/16 07:51 98 12/15/16 04:00 97 12/15/16 03:56 12/15/16 00:00 93 L 12/14/16 22:11 12/14/16 21:40 93 L 12/14/16 20:46 95 Intake and Output 12/15/16 12/15/16 12/15/16 06:59 14:59 22:59 Intake Total 1100 240 320 Output Total 175 Balance 1100 65 320 Intake: IV 900 Sodium Chloride 0.9% 1, 900 000 ml @ 100 mls/hr IV . Q10H ONE Rx#:[id number] Oral 200 240 320 Output: Urine 175 Other: Voiding Method Urinal Urinal Diaper Incontinent # Voids 2 1 1 # Bowel Movements 1 - Constitutional General appearance: cooperative - EENT EENT: PERRL, hearing intact, vision intact - Respiratory Respiratory: lungs clear, normal breath sounds - Cardiovascular Cardiovascular: regular rate, normal S1, normal S2 - Integumentary Integumentary: normal - Neurologic Mental status he was awake he was alert he was slow to respond to questions but his speech was articulate his conversation was brief he was oriented to hospital he did not know the year or the month he was able to name the president he was able to add but had difficulty with subtraction's he was able to spell he did have some right left confusion and finger agnosia Cranial nerve examination: EOMI, VFF, V1/V2/V3 grossly intact, face symmetric, tongue midline Speech examination: intact, other (He was slow to respond to questions and hesitant) Detailed motor examination: other (Left upper and left lower external he was 5 out of 5 right upper and right lower extremity was 4/5) Detailed sensory examination: intact Reflexes: 2+: knee - Psychiatric Psychiatric: cooperative Results - Laboratory Findings CBC and BMP: 12/15/16 08:39 12/15/16 08:39 Abnormal Lab Findings: Abnormal Labs 12/14/16 12/14/16 12/14/16 16:56 16:56 16:56 RBC 4.15 L Hgb Hct 38.5 L Lymphocytes # INR APTT Carbon Dioxide 31 H BUN 28 H AST 16 L Total Creatine Kinase 26 L Total Protein 12/14/16 12/15/16 12/15/16 17:07 08:39 08:39 RBC 3.97 L Hgb 12.9 L Hct 37.0 L Lymphocytes # 0.9 L INR 1.2 H APTT 21.7 L Carbon Dioxide BUN AST 16 L Total Creatine Kinase Total Protein 6.0 L Assessment and Plan (1) CVA (cerebral vascular accident) Status: Acute Code(s): I63.9 - CEREBRAL INFARCTION, UNSPECIFIED Plan: The patient is a 71-year-old man with recent stroke with right hemiparesis was developed some weakness over the last 2 days. He is admitted to the hospital with possible worsening stroke. He is on Plavix and baby aspirin as well as subcu heparin has had recent carotid ultrasound echocardiogram this year which were unremarkable. Recommend EEG testing he has had a CT of the brain which showed some small vessel disease. Recommend PT OT evaluation
[2016-12-16] MEDS: SUCRALFATE 1 GM TAB PO SCH ×2 (06:24→18:12)
[2016-12-16 06:56] LABS: Basophils % (A) 1 %; CH 32.7; CHCM 34.9; Eosinophils # (A) 0.1 k/uL (0-0.7); Eosinophils % (A) 1 %; HCT 42.2 % (39.0-53.0); HGB 14.1 gm/dL (13.0-17.5); Luc % (Auto) 2; Lymphocytes # (A) 0.9 k/uL (1.0-4.8); Lymphocytes % (A) 20 %; MCH 31.4 pg (25.0-35.0); MCHC 33.4 g/dL (31.0-37.0); MCV 94.1 fL (80.0-100.0); Monocytes # (A) 0.4 k/uL (0-1.0); Monocytes % (A) 9 %; Neutrophils # (A) 3.1 k/uL (1.3-7.7); Neutrophils % (A) 67 %; RBC 4.48 m/uL (4.30-5.90); WBC 4.6 k/uL (3.8-10.6); WBC (Perox) 4.85
[2016-12-16 07:31] LABS: ALT 31 U/L (21-72); AST 19 U/L (17-59); Alkaline Phosphatase 77 U/L (38-126); Anion Gap 11 mmol/L; Blood Urea Nitrogen 15 mg/dL (9-20); Calcium 9.6 mg/dL (8.4-10.2); Carbon Dioxide 26 mmol/L (22-30); Chloride 106 mmol/L (98-107); Glucose 94 mg/dL (74-99); Non-African American GFR(MDRD) >60 (>60 ml/min/1.73 sqM); Potassium 4.1 mmol/L (3.5-5.1); Sodium 143 mmol/L (137-145); Total Bilirubin 0.7 mg/dL (0.2-1.3); Total Protein 6.8 g/dL (6.3-8.2)
[2016-12-16] MEDS: LISINOPRIL 5 MG TAB PO SCH (08:05)
[2016-12-16] MEDS: VIT A,C & E-LUTEIN-MINERALS 1 EACH TAB PO SCH ×2 (08:05→18:09)
[2016-12-16] MEDS: HEPARIN SODIUM,PORCINE 5,000 UNIT/ML 1 ML VIAL SQ SCH ×2 (08:05→22:09)
[2016-12-16] MEDS: SERTRALINE 100 MG TAB PO SCH (08:05)
[2016-12-16] MEDS: ASPIRIN 81 MG CHEW PO SCH (08:05)
[2016-12-16] MEDS: PANTOPRAZOLE 40 MG TABLET PO SCH (08:05)
[2016-12-16] MEDS: CHOLECALCIFEROL 1,000 UNIT TAB PO SCH (08:05)
[2016-12-16] MEDS: CLOPIDOGREL 75 MG TAB PO SCH (08:05)
[2016-12-16] MEDS: ONDANSETRON 4 MG/2 ML VIAL IVP PRN ×3 (09:09→22:22)
[2016-12-16] MEDS: POLYETHYLENE GLYCOL 3350 17 GM POWD.PACK PO SCH (09:16)
[2016-12-16 09:37] LABS: Cholesterol 166 mg/dL (<200); HDL Cholesterol 36 mg/dL (40-60); Triglycerides 171 mg/dL (<150)
--- NOTE | 2016-12-16 11:11 | P.PN ---
Subjective This is a 71-year-old male with a known history of CVA in June who did require rehabilitation at [facility]. Patient also has a known history of hypertension, hyperlipidemia and peptic ulcer disease. Patient has been home doing well working with physical therapy at home. Difficult to obtain history from patient. He has difficulty with his words. Most information came from patient's who is very active in his care. She reports that on Monday her had been very tired and had difficulty signing a form. She states that he can usually signing his name without any difficulty. The following day patient was still sleepy and when the physical therapist came in the afternoon she noted during her exam that the patient had worsening weakness on his right side. Also patient was having difficulty forming his words. During my conversation with the patient it takes him about 10 seconds before he can respond and it's a very slow. Also, the reports patient had a low-grade temp of 99. He was initially brought into the emergency room for further evaluation via ambulance. Computed tomography scan of the brain showed no acute changes. It did show age-related atrophic and chronic small vessel ischemic change. EKG shows normal sinus rhythm. Chest x-ray was negative and UA was negative. Initially patient was then a be discharged from the emergency room but then he started to vomit. I was mostly bile. And once he came to the floor there is no further episodes of vomiting. Last bowel movement was 2 days ago. And at that time it was normal. Patient was admitted initially admitted to observation floor. 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 He had a carotid ultrasound in May 2016 which showed no significant hemodynamic stenosis as well as an echo in May 2016 which showed an EF of 55-60% and no significant valvular disease. Patient has been taking his aspirin and Plavix daily. Neurology will be consulted. Likely patient is having a recurrent stroke affecting the right side. He is having difficulty forming words and there is significant weakness noted on that right side which appears worse than when I had evaluated him during his rehabilitation stay at [facility]. We will make patient a full admit and transfer him up to the sixth floor. Consult physical therapy, occupational therapy and speech therapy. 12/16/2016 patient had some nausea this morning and could not participate with physical therapy. He received some Zofran. No actual vomiting. Patient was evaluated by neurology yesterday for possible new stroke. Patient is still having some confusion. He is alert and orientated to his name and place and disorientated to the year he reports it is 1975. He's had some improvement in his right-sided weakness. is at bedside and questions have been answered. He is scheduled for EEG today as well as an MRI of the brain with contrast Objective - Vital Signs Vital signs: Vital Signs Temp 98.7 F 12/16/16 08:00 Pulse 84 12/16/16 08:00 Resp 18 12/16/16 08:00 BP 160/91 12/16/16 08:00 Pulse Ox 96 12/16/16 08:00 Intake & Output 12/15/16 12/16/16 12/16/16 18:59 06:59 18:59 Intake Total 560 280 Output Total 175 Balance 385 280 Intake: Oral 560 280 Output: Urine 175 Other: Voiding Method Urinal Urinal Urinal Diaper Diaper Diaper Incontinent Incontinent Incontinent # Voids 1 3 1 # Bowel Movements 1 - Exam Head normocephalic Neck supple Lungs clear to auscultation bilaterally no wheezing or crackles Heart regular rate and rhythm S1-S2, no rub or gallop Abdomen is soft nontender nondistended positive bowel sounds no hepatosplenomegaly Extremities no edema Neuro alert and orientated to 2. He knows his name and place. States the year is 1975. He does know the president. 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 Still having some lower extremity strength weakness - Labs CBC & Chem 7: 12/16/16 06:09 12/16/16 06:09 Labs: Abnormal Lab Results - Last 24 Hours (Table) 12/16/16 12/16/16 Range/Units 06:09 06:09 Lymphocytes # 0.9 L (1.0-4.8) k/uL Triglycerides 171 H (<150) mg/dL HDL Cholesterol 36 L (40-60) mg/dL Assessment and Plan Plan: 1. Right-sided weakness with speech difficulty likely due to a new CVA. Continue aspirin and Plavix. Computed tomography scan of the brain showed no acute changes. Consult neurology. Continue telemetry monitoring. Patient is remained in sinus rhythm. EKG showing normal sinus rhythm. Carotid ultrasound in May 2016 shows no significant hemodynamic stenosis echo May 2016 shows an EF of 55-60% with no significant valvular abnormality. Patient was seen by neurology they've ordered an EEG of the brain. We will order an MRI of the brain with contrast. PT OT and speech therapy consulted 2. Previous history of CVA affecting the right side in June 2016 3. Essential hypertension: Blood pressure stable. continue lisinopril and Norvasc 4. Hyperlipidemia continue Lipitor 5. Vomiting: Now resolved. Continue Zofran as needed. Tolerating regular diet. Possibly related to a viral gastroenteritis. Continue to monitor. Patient is having some episodes of nausea. No further episodes of vomiting 6. History of peptic ulcer disease continue Protonix GI prophylaxis Protonix and DVT prophylaxis subcu heparin I performed an examination of the patient and discussed their management with the physician Occupational Analyst. I have reviewed the Physician Occupational Analyst's notes and agree with the documented findings and plan of care
[2016-12-16] MEDS ORDERED: PROCHLORPERAZINE 5 MG TAB PO PRN (17:00)
[2016-12-16 17:35] LABS: Amylase 40 U/L (30-110)
[2016-12-16] MEDS: LACTOBACILLUS ACIDOPH & BULGAR 1 EACH PACKET PO SCH (18:09)
[2016-12-16] MEDS: FINASTERIDE 5 MG TAB PO SCH (18:10)
[2016-12-16] MEDS: ATORVASTATIN 10 MG TAB PO SCH (22:09)
[2016-12-16] MEDS: amLODIPine 2.5 MG TAB PO SCH (22:09)
[2016-12-17] MEDS: SUCRALFATE 1 GM TAB PO SCH ×2 (06:26→17:36)
[2016-12-17 06:46] LABS: Basophils % (A) 1 %; CH 32.8; CHCM 35.2; Eosinophils # (A) 0.1 k/uL (0-0.7); Eosinophils % (A) 1 %; HDW 2.72; HGB 14.4 gm/dL (13.0-17.5); Luc # (Auto) 0.15; Luc % (Auto) 3; Lymphocytes % (A) 18 %; MCH 32.1 pg (25.0-35.0); MCHC 34.2 g/dL (31.0-37.0); MCV 93.6 fL (80.0-100.0); Mean Platelet Volume 7.8; Monocytes # (A) 0.4 k/uL (0-1.0); Monocytes % (A) 8 %; Neutrophils # (A) 3.7 k/uL (1.3-7.7); Neutrophils % (A) 70 %; RBC 4.49 m/uL (4.30-5.90); WBC 5.3 k/uL (3.8-10.6); WBC (Perox) 5.46
[2016-12-17 07:04] LABS: ALT 28 U/L (21-72); AST 20 U/L (17-59); Alkaline Phosphatase 76 U/L (38-126); Anion Gap 11 mmol/L; Blood Urea Nitrogen 17 mg/dL (9-20); Calcium 9.3 mg/dL (8.4-10.2); Carbon Dioxide 26 mmol/L (22-30); Chloride 105 mmol/L (98-107); Glucose 87 mg/dL (74-99); Non-African American GFR(MDRD) >60 (>60 ml/min/1.73 sqM); Potassium 4.2 mmol/L (3.5-5.1); Sodium 142 mmol/L (137-145); Total Bilirubin 0.9 mg/dL (0.2-1.3); Total Protein 6.9 g/dL (6.3-8.2)
--- NOTE | 2016-12-17 08:22 | US ---
EXAMINATION TYPE: US abdomen complete DATE OF EXAM: 12/17/2016 COMPARISON: Previous exam dated 06/04/2015 ultrasound abdomen CLINICAL HISTORY: vomiting. nausea and vomiting EXAM MEASUREMENTS: Liver Length: 14.7 cm Gallbladder Wall: 0.3 cm CBD: 0.4 cm Spleen: 10.2 cm Right Kidney: 10.7 x 5.1 x 4.9 cm Left Kidney: 11.5 x 5.8 x 5.0 cm Pancreas: visualized portions appear wnl Liver: best seen intercostally, visualized portions appear wnl Gallbladder: no evidence of stones Evidence for sonographic Batista's sign: no CBD: appears wnl Spleen: wnl Right Kidney: no evidence of hydronephrosis or mass as visualized Left Kidney: no evidence of hydronephrosis or mass as visualized the kidneys show normal cortical medullary differentiation Upper IVC: wnl Abd Aorta: proximal aorta measuring 2.8cm no evident aneurysm There is no ascites. The liver is homogenous. The intrahepatic portion of the IVC and proximal abdominal aorta are within normal limits. There is no evidence of cholelithiasis. Common bile duct is unremarkable. The visu alized portions of the pancreas are homogenous. The spleen is unremarkable. Kidneys are symmetric a nd free of hydronephrosis. No renal lesions are seen. IMPRESSION: No abnormality evident to account for patient's symptoms. There are limitations to the ev aluation of the abdomen.
[2016-12-17] MEDS: HEPARIN SODIUM,PORCINE 5,000 UNIT/ML 1 ML VIAL SQ SCH ×2 (09:12→22:07)
[2016-12-17] MEDS: CLOPIDOGREL 75 MG TAB PO SCH (09:12)
[2016-12-17] MEDS: LISINOPRIL 5 MG TAB PO SCH (09:13)
[2016-12-17] MEDS: PANTOPRAZOLE 40 MG TABLET PO SCH (09:13)
[2016-12-17] MEDS: POLYETHYLENE GLYCOL 3350 17 GM POWD.PACK PO SCH (09:13)
[2016-12-17] MEDS: CHOLECALCIFEROL 1,000 UNIT TAB PO SCH (09:14)
[2016-12-17] MEDS: SERTRALINE 100 MG TAB PO SCH (09:14)
[2016-12-17] MEDS: VIT A,C & E-LUTEIN-MINERALS 1 EACH TAB PO SCH ×2 (09:15→17:36)
--- NOTE | 2016-12-17 09:22 | MR ---
EXAMINATION TYPE: MR brain wo/w con DATE OF EXAM: 12/17/2016 COMPARISON: CT brain 12/14/2016, prior brain MR 07/04/2016 HISTORY: CVA TECHNIQUE: Multiplanar, multisequence images of the brain and brainstem is performed without and with IV contras t, utilizing 19 mL intravenous MultiHance . FINDINGS: Diffusion weighted images demonstrate periventricular diffusion abnormality on the left com patible with subacute ischemia, there is restricted diffusion, focus measuring approximately 1 cm in size. There is no extra-axial fluid collection. Periventricular confluent hyperintensity is present on inversion recovery and T2-weighted sequences. There is cortical atrophy. Hyperintensity also pres ent on inversion recovery and T2-weighted sequences within the jamil. Corpus callosum shows some abnormal signal on T1 and T2-weighted sequences,. Corpus callosum is atten uated. The craniocervical junction appears within normal limits. Post contrast images demonstrate no abnormal enhancement. The dural venous sinuses appear patent. The visualized sinuses are clear and t he globes are intact. IMPRESSION: Subacute ischemia compatible with patient's history of cerebrovascular accident within th e periventricular white matter of the left frontal lobe, similar distribution to previous cerebrovasc ular accident 07/04/2016. There is significant white matter change present within the brain, different ial includes chronic small vessel ischemia. There is cortical atrophy which is likely age-related.
--- NOTE | 2016-12-17 11:25 | CONS ---
Reason for consultation: Nausea and vomiting. HISTORY OF PRESENT ILLNESS: The patient is a 71-year-old pleasant white male, with history of CVA in June of this year who is presently undergoing rehabilitation at home who is doing well. While he was home two days ago, he started feeling extremely weak, tired, had a low grade fever, was very concerned and hence his brought him to the emergency room. In the ER, he was investigated. He was about to be discharged home at which time he started having some nausea and vomiting and hence subsequently he was admitted to the hospital for further evaluation and treatment. He did have a CT of the head done that showed no acute changes. Chest x-ray was negative. In the meantime , he continued to have progressive nausea and vomiting and neurology has been consulted. The patient was scheduled for MRI of the brain today. In the meantime, he was on Zofran and Compazine and the nausea is gradually improving. The is at the bedside feeding him some jello and the patient is tolerating well. He denies any abdominal pain. He reports no nausea feeling. He reports no emesis as of last night. He never had these symptoms in the past. Apparently he was diagnosed with peptic ulcer disease, bleeding peptic ulcer disease in May [address] Truong when he presented with acute upper gastrointestinal bleed and received two units of blood transfusion. Since then he has been on Carafate and Omeprazole and doing well. No recent enzyme use. Past medical history is significant for recent CVA, hypertension, hyperlipidemia , chronic back pain. Upper GI bleed related to peptic ulcer disease in May of this year. Medications at home: 1. Vitamin D3. 2. Probiotic. 3. Tylenol. 4. Lipitor. 5. Plavix. 6. Avodart. 7. Zestril. 8. Protonix. 9. Miralax. 10. Zoloft. 11. Tramadol. 12. Norvasc. ALLERGIES: None. SOCIAL HISTORY: No history of smoking. No alcohol use. FAMILY HISTORY: Unremarkable. REVIEW OF SYSTEMS: Cardiopulmonary: No chest pain or shortness of breath. : no dysuria or hematuria. Musculoskeletal: Unremarkable. Skin: Unremarkable. Endocrine: Unremarkable. Psychiatric: Unremarkable. Neurological : Recent cerebrovascular accident with right sided hemiparesis. ENT/vision: unremarkable. Constitutional: No recent weight loss. No fevers, chills or night sweats. On physical examination, appears comfortable, in no acute distress. Vital signs are stable. Blood pressure 130/86, pulse rate 82 per minute and afebrile. HEENT: Examination unremarkable. Conjunctivae pink. Sclerae anicteric. Oral cavity no lesions. Neck no JVD or lymph node enlargement. Chest clear to auscultation. Heart regular rate and rhythm. Abdomen soft. Bowel sounds positive. . No organomegaly. Extremities: No pedal edema. Skin no rashes. Neurological: Alert and oriented times three. Right sided hemiparesis. Labs done at the time of admission to the hospital: WBC 5.3. Hemoglobin 14.4, platelets are normal. Basic metabolic panel is within normal limits. IMPRESSION: 1. Nausea and vomiting for the last three days duration. Symptoms are gradually improving. Most likely medication related. He was recently started on Tramadol about three days prior to onset of his symptoms. In any event, presently on symptomatic therapy with antiemetics with Zofran and Compazine and he is doing much better. For the last 24 hours did not have any further episodes of nausea and vomiting. He is on a clear liquid diet and presently advanced to a soft diet for this afternoon. 2. History of peptic ulcer disease in May 2016, presently on Omeprazole and Carafate, doing well. 3. Recent cerebrovascular accident in June 2016, undergoing rehab. RECOMMENDATIONS: 1. Continue symptomatic and supportive care. 2. No need for any endoscopy intervention. 3. Advance diet as tolerated. 4. Continue with Omeprazole and Carafate. 5. We will follow closely during hospital stay. Thank you for this consultation. SORIN
[2016-12-17] MEDS: ASPIRIN 81 MG CHEW PO SCH (12:31)
--- NOTE | 2016-12-17 13:25 | P.PN ---
Subjective This is a 71-year-old male with a known history of CVA in June who did require rehabilitation at [facility]. Patient also has a known history of hypertension, hyperlipidemia and peptic ulcer disease. Patient has been home doing well working with physical therapy at home. Difficult to obtain history from patient. He has difficulty with his words. Most information came from patient's who is very active in his care. She reports that on Monday her had been very tired and had difficulty signing a form. She states that he can usually signing his name without any difficulty. The following day patient was still sleepy and when the physical therapist came in the afternoon she noted during her exam that the patient had worsening weakness on his right side. Also patient was having difficulty forming his words. During my conversation with the patient it takes him about 10 seconds before he can respond and it's a very slow. Also, the reports patient had a low-grade temp of 99. He was initially brought into the emergency room for further evaluation via ambulance. Computed tomography scan of the brain showed no acute changes. It did show age-related atrophic and chronic small vessel ischemic change. EKG shows normal sinus rhythm. Chest x-ray was negative and UA was negative. Initially patient was then a be discharged from the emergency room but then he started to vomit. I was mostly bile. And once he came to the floor there is no further episodes of vomiting. Last bowel movement was 2 days ago. And at that time it was normal. Patient was admitted initially admitted to observation floor. He's been in sinus rhythm on shelter monitor. He had a carotid ultrasound in May 2016 which showed no significant hemodynamic stenosis as well as an echo in May 2016 which showed an EF of 55-60% and no significant valvular disease. Patient has been taking his aspirin and Plavix daily. Neurology will be consulted. Likely patient is having a recurrent stroke affecting the right side. He is having difficulty forming words and there is significant weakness noted on that right side which appears worse than when I had evaluated him during his rehabilitation stay at [facility]. We will make patient a full admit and transfer him up to the sixth floor. Consult physical therapy, occupational therapy and speech therapy. 12/16/2016 patient had some nausea this morning and could not participate with physical therapy. He received some Zofran. No actual vomiting. Patient was evaluated by neurology yesterday for possible new stroke. Patient is still having some confusion. He is alert and orientated to his name and place and disorientated to the year he reports it is 1975. He's had some improvement in his right-sided weakness. is at bedside and questions have been answered. He is scheduled for EEG today as well as an MRI of the brain with contrast On 12/17/2016 patient was seen and examined with at bedside patient has been receiving Zofran and Compazine and his nausea and vomiting improved he was able to have MRI of the brain and abdomen ultrasound results were reviewed. He was also seen by Dr. Milka Navarro in regard to his vomiting, no intervention recommended at this time. Objective - Vital Signs Vital signs: Vital Signs Temp 97.2 F L 12/17/16 08:00 Pulse 69 12/17/16 12:00 Resp 16 12/17/16 12:00 BP 130/84 12/17/16 12:00 Pulse Ox 93 L 12/17/16 12:00 Intake & Output 12/16/16 12/17/16 12/17/16 18:59 06:59 18:59 Intake Total 280 120 Output Total 200 1 1 Balance 80 -1 119 Intake: Oral 280 120 Output: Urine 200 1 1 Other: Voiding Method Urinal Urinal Urinal Diaper Diaper Diaper Incontinent Incontinent Incontinent # Voids 1 1 1 # Bowel Movements 1 1 - Exam In general patient is alert slightly confused in no apparent distress speech is fluent HEENT head normocephalic and atraumatic Neck is supple no JVD no goiter no lymphadenopathy Chest exam reveals a few scattered crackles no wheezing Cardiac exam reveals regular heart sounds no gallops no murmurs Abdomen is soft nontender no organomegaly Extremity exam reveals no edema no cyanosis or clubbing Neurological examination reveals mild weakness on the right as compared to the left in the right upper and right lower extremity - Labs CBC & Chem 7: 12/17/16 06:00 12/17/16 05:59 Assessment and Plan Plan: 1. Right-sided weakness with speech difficulty likely due to a new CVA. Continue aspirin and Plavix. Computed tomography scan of the brain showed no acute changes. Consult neurology. Continue telemetry monitoring. Patient is remained in sinus rhythm. EKG showing normal sinus rhythm. Carotid ultrasound in May 2016 shows no significant hemodynamic stenosis echo May 2016 shows an EF of 55-60% with no significant valvular abnormality. Patient was seen by neurology they've ordered an EEG of the brain. We will order an MRI of the brain with contrast. PT OT and speech therapy consulted 2. Previous history of CVA affecting the right side in June 2016 3. Essential hypertension: Blood pressure stable. continue lisinopril and Norvasc 4. Hyperlipidemia continue Lipitor 5. Vomiting: Now resolved. Continue Zofran as needed. Tolerating regular diet. Possibly related to a viral gastroenteritis. Continue to monitor. Patient is having some episodes of nausea. No further episodes of vomiting 6. History of peptic ulcer disease continue Protonix GI prophylaxis Protonix and DVT prophylaxis subcu heparin
[2016-12-17] MEDS: FINASTERIDE 5 MG TAB PO SCH (17:36)
[2016-12-17] MEDS: LACTOBACILLUS ACIDOPH & BULGAR 1 EACH PACKET PO SCH (17:37)
[2016-12-17] MEDS: amLODIPine 2.5 MG TAB PO SCH (22:06)
[2016-12-17] MEDS: ATORVASTATIN 10 MG TAB PO SCH (22:06)
[2016-12-18] MEDS: SUCRALFATE 1 GM TAB PO SCH ×2 (06:27→17:38)
[2016-12-18 06:34] LABS: Basophils % (A) 1 %; CH 32.5; CHCM 35.1; Eosinophils # (A) 0.1 k/uL (0-0.7); Eosinophils % (A) 1 %; HCT 42.2 % (39.0-53.0); HDW 2.75; HGB 14.5 gm/dL (13.0-17.5); Luc # (Auto) 0.14; Luc % (Auto) 2; Lymphocytes # (A) 1.1 k/uL (1.0-4.8); Lymphocytes % (A) 19 %; MCHC 34.4 g/dL (31.0-37.0); Mean Platelet Volume 7.4; Monocytes # (A) 0.4 k/uL (0-1.0); Monocytes % (A) 7 %; Neutrophils # (A) 4.3 k/uL (1.3-7.7); Neutrophils % (A) 71 %; RBC 4.54 m/uL (4.30-5.90); RDW 13.5 % (11.5-15.5); WBC (Perox) 5.74
[2016-12-18 06:34] LABS: ALT 39 U/L (21-72); AST 20 U/L (17-59); Alkaline Phosphatase 88 U/L (38-126); Anion Gap 12 mmol/L; Blood Urea Nitrogen 18 mg/dL (9-20); Calcium 9.8 mg/dL (8.4-10.2); Carbon Dioxide 26 mmol/L (22-30); Chloride 104 mmol/L (98-107); Glucose 99 mg/dL (74-99); Non-African American GFR(MDRD) >60 (>60 ml/min/1.73 sqM); Sodium 142 mmol/L (137-145); Total Bilirubin 0.9 mg/dL (0.2-1.3)
[2016-12-18] MEDS: HEPARIN SODIUM,PORCINE 5,000 UNIT/ML 1 ML VIAL SQ SCH ×2 (09:27→19:46)
[2016-12-18] MEDS: ASPIRIN 81 MG CHEW PO SCH (09:27)
[2016-12-18] MEDS: CLOPIDOGREL 75 MG TAB PO SCH (09:27)
[2016-12-18] MEDS: SERTRALINE 100 MG TAB PO SCH (09:28)
[2016-12-18] MEDS: POLYETHYLENE GLYCOL 3350 17 GM POWD.PACK PO SCH (09:28)
[2016-12-18] MEDS: PANTOPRAZOLE 40 MG TABLET PO SCH (09:28)
[2016-12-18] MEDS: LISINOPRIL 5 MG TAB PO SCH (09:28)
[2016-12-18] MEDS: VIT A,C & E-LUTEIN-MINERALS 1 EACH TAB PO SCH ×2 (09:29→17:38)
--- NOTE | 2016-12-18 10:53 | EEG ---
DATE OF EE12/17/2016 REFERRING PHYSICIAN: Dr. Deleon. CONSULTING/INTERPRETING PHYSICIAN: Dr. Kamaljit Barnes. ELECTROENCEPHALOGRAPHIC EXAMINATION REPORT: INDICATION FOR EXAMINATION: This patient is a 71-year-old male being evaluated for altered mental status and confusion. AGE: 71. EEG FINDINGS: A routine 21-channel awake, digital EEG recording was accomplished utilizing the 10-20 international system with bipolar and referential montages. The background activity in the most alert resting state consists of a low to medium amplitude poorly developed and poorly sustained 5-6 Hz activity over the posterior head regions. This posterior rhythm attenuates minimally to eye opening. There is a small amount of low amplitude 18-20 Hz beta activity seen maximally over the anterior head regions. Muscle and movement artifact was observed on a few occasions during the tracing. Hyperventilation was not performed. Photic stimulation at flash frequencies of 2-30 Hz produced a minimal occipital driving response. No epileptiform discharges were seen. IMPRESSION: This EEG is moderately abnormal in a diffuse fashion due to slowing of the EEG background. The EEG failed to reveal any focal, lateralized , or epileptiform abnormalities. Clinical correlation is recommended. MTDD
--- NOTE | 2016-12-18 11:26 | PN ---
DATE OF SERVICE; 12/18/2016 The patient is a 71-year-old pleasant white male with recent CVA and right- sided hemiparesis in June of this year, undergoing rehab therapy. Was admitted to the hospital with nausea and vomiting of 3-4 days duration. He is presently on Carafate, Protonix and Zofran as needed and is doing much better. The symptoms have resolved. He is on a clear liquid diet, tolerating well. He denies any abdominal pain. PHYSICAL EXAMINATION: Appears comfortable, no apparent distress. VITAL SIGNS: Stable. Blood pressure is 122/96, pulse rate 83, temperature 98.1. HEENT: Unremarkable. Conjunctivae pink, sclerae anicteric. Oral cavity, no lesions. NECK: No JVD or lymph node enlargement. CHEST: Clear to auscultation. HEART: Regular rate and rhythm. ABDOMEN: Soft. Nontender, nondistended. Bowel sounds are positive. No organomegaly. EXTREMITIES: No pedal edema. SKIN: No rashes. NEURO: Awake, oriented to name. Right-sided hemiparesis. IMPRESSION: 1. Nausea and vomiting for the last 3-4 days duration which appears to be gradually resolving. Presently on antiemetics as needed. 2. History of peptic ulcer disease in May of 2016, presently maintained on Protonix and Carafate and doing well. 3. Recent cerebrovascular accident in June of 2016 with right-sided hemiparesis, undergoing rehab therapy. RECOMMENDATIONS: 1. Will advance to regular diet. 2. Continue with antiemetics as needed. 3. Continue with Protonix and Carafate on a daily basis. 4. No need for any endoscopic intervention at this time. Will follow him closely. [facility]
[2016-12-18] MEDS: CHOLECALCIFEROL 1,000 UNIT TAB PO SCH (12:24)
--- NOTE | 2016-12-18 14:44 | P.PN ---
Subjective This is a 71-year-old male with a known history of CVA in June who did require rehabilitation at [facility]. Patient also has a known history of hypertension, hyperlipidemia and peptic ulcer disease. Patient has been home doing well working with physical therapy at home. Difficult to obtain history from patient. He has difficulty with his words. Most information came from patient's who is very active in his care. She reports that on Monday her had been very tired and had difficulty signing a form. She states that he can usually signing his name without any difficulty. The following day patient was still sleepy and when the physical therapist came in the afternoon she noted during her exam that the patient had worsening weakness on his right side. Also patient was having difficulty forming his words. During my conversation with the patient it takes him about 10 seconds before he can respond and it's a very slow. Also, the reports patient had a low-grade temp of 99. He was initially brought into the emergency room for further evaluation via ambulance. Computed tomography scan of the brain showed no acute changes. It did show age-related atrophic and chronic small vessel ischemic change. EKG shows normal sinus rhythm. Chest x-ray was negative and UA was negative. Initially patient was then a be discharged from the emergency room but then he started to vomit. I was mostly bile. And once he came to the floor there is no further episodes of vomiting. Last bowel movement was 2 days ago. And at that time it was normal. Patient was admitted initially admitted to observation floor. He's been in sinus rhythm on monitor technician. He had a carotid ultrasound in May 2016 which showed no significant hemodynamic stenosis as well as an echo in May 2016 which showed an EF of 55-60% and no significant valvular disease. Patient has been taking his aspirin and Plavix daily. Neurology will be consulted. Likely patient is having a recurrent stroke affecting the right side. He is having difficulty forming words and there is significant weakness noted on that right side which appears worse than when I had evaluated him during his rehabilitation stay at [facility]. We will make patient a full admit and transfer him up to the sixth floor. Consult physical therapy, occupational therapy and speech therapy. 12/16/2016 patient had some nausea this morning and could not participate with physical therapy. He received some Zofran. No actual vomiting. Patient was evaluated by neurology yesterday for possible new stroke. Patient is still having some confusion. He is alert and orientated to his name and place and disorientated to the year he reports it is 1975. He's had some improvement in his right-sided weakness. is at bedside and questions have been answered. He is scheduled for EEG today as well as an MRI of the brain with contrast On 12/17/2016 patient was seen and examined with at bedside patient has been receiving Zofran and Compazine and his nausea and vomiting improved he was able to have MRI of the brain and abdomen ultrasound results were reviewed. He was also seen by Dr. Milka Navarro in regard to his vomiting, no intervention recommended at this time. Objective - Vital Signs Vital signs: Vital Signs Temp 97.6 F 12/18/16 08:00 Pulse 72 12/18/16 12:00 Resp 16 12/18/16 12:00 BP 130/68 12/18/16 12:00 Pulse Ox 96 12/18/16 12:00 Intake & Output 12/17/16 12/18/16 12/18/16 18:59 06:59 18:59 Intake Total 600 240 Output Total 301 300 Balance 299 -60 Weight 89.5 kg Intake: Oral 600 240 Output: Urine 301 300 Other: Voiding Method Urinal Urinal Urinal Diaper Diaper Diaper Incontinent Incontinent Incontinent # Voids 2 1 2 # Bowel Movements 1 1 - Exam In general patient is alert slightly confused in no apparent distress speech is fluent HEENT head normocephalic and atraumatic Neck is supple no JVD no goiter no lymphadenopathy Chest exam reveals a few scattered crackles no wheezing Cardiac exam reveals regular heart sounds no gallops no murmurs Abdomen is soft nontender no organomegaly Extremity exam reveals no edema no cyanosis or clubbing Neurological examination reveals mild weakness on the right as compared to the left in the right upper and right lower extremity - Labs CBC & Chem 7: 12/18/16 05:37 12/18/16 05:36 Assessment and Plan Plan: 1. Right-sided weakness with speech difficulty likely due to a new CVA. Continue aspirin and Plavix. Computed tomography scan of the brain showed no acute changes. Consult neurology. Continue telemetry monitoring. Patient is remained in sinus rhythm. EKG showing normal sinus rhythm. Carotid ultrasound in May 2016 shows no significant hemodynamic stenosis echo May 2016 shows an EF of 55-60% with no significant valvular abnormality. Patient was seen by neurology they've ordered an EEG of the brain. We will order an MRI of the brain with contrast. PT OT and speech therapy consulted. will consult Dr Palacios for possible rehab admission 2. Previous history of CVA affecting the right side in June 2016 3. Essential hypertension: Blood pressure stable. continue lisinopril and Norvasc 4. Hyperlipidemia continue Lipitor 5. Vomiting: Now resolved. Continue Zofran as needed. Tolerating regular diet. Possibly related to a viral gastroenteritis. Continue to monitor. Patient is having some episodes of nausea. No further episodes of vomiting 6. History of peptic ulcer disease continue Protonix GI prophylaxis Protonix and DVT prophylaxis subcu heparin
[2016-12-18] MEDS: LACTOBACILLUS ACIDOPH & BULGAR 1 EACH PACKET PO SCH (17:38)
[2016-12-18] MEDS: FINASTERIDE 5 MG TAB PO SCH (17:39)
[2016-12-18] MEDS: ONDANSETRON 4 MG/2 ML VIAL IVP PRN (19:35)
[2016-12-18] MEDS: amLODIPine 2.5 MG TAB PO SCH (19:46)
[2016-12-18] MEDS: ATORVASTATIN 10 MG TAB PO SCH (19:46)
[2016-12-19 06:20] LABS: Basophils # (A) 0.1 k/uL (0-0.2); Basophils % (A) 1 %; CH 32.3; CHCM 34.7; Eosinophils # (A) 0.1 k/uL (0-0.7); Eosinophils % (A) 1 %; HCT 43.3 % (39.0-53.0); HDW 2.79; HGB 14.8 gm/dL (13.0-17.5); Luc # (Auto) 0.13; Luc % (Auto) 2; Lymphocytes % (A) 18 %; MCHC 34.2 g/dL (31.0-37.0); MCV 93.6 fL (80.0-100.0); Mean Platelet Volume 7.4; Monocytes # (A) 0.4 k/uL (0-1.0); Monocytes % (A) 8 %; Neutrophils # (A) 3.8 k/uL (1.3-7.7); Neutrophils % (A) 70 %; RBC 4.63 m/uL (4.30-5.90); RDW 13.5 % (11.5-15.5); WBC 5.5 k/uL (3.8-10.6); WBC (Perox) 5.56
[2016-12-19] MEDS: SUCRALFATE 1 GM TAB PO SCH ×2 (06:28→16:19)
[2016-12-19 06:33] LABS: ALT 41 U/L (21-72); AST 27 U/L (17-59); Alkaline Phosphatase 82 U/L (38-126); Anion Gap 14 mmol/L; Blood Urea Nitrogen 18 mg/dL (9-20); Calcium 9.6 mg/dL (8.4-10.2); Carbon Dioxide 24 mmol/L (22-30); Chloride 104 mmol/L (98-107); Glucose 97 mg/dL (74-99); Non-African American GFR(MDRD) >60 (>60 ml/min/1.73 sqM); Potassium 3.9 mmol/L (3.5-5.1); Sodium 142 mmol/L (137-145); Total Bilirubin 0.8 mg/dL (0.2-1.3); Total Protein 6.8 g/dL (6.3-8.2)
[2016-12-19] MEDS: ONDANSETRON 4 MG/2 ML VIAL IVP PRN ×2 (07:40→16:19)
--- NOTE | 2016-12-19 08:19 | P.CONS ---
History of Present Illness - Chief Complaint Gait disturbance, right hemiparesthesias and aphasia - History of Present Illness I had the op to see patient for inpatient rehab consultation with regard to gait disturbance. He was admitted December 15 acute onset right-sided weakness and speech disturbance, a aphasia. Seen by for same. Chest x-ray negative. Head CT with age-related change. Abdominal ultrasound within normal limits. Brain MRI demonstrated left frontal periventricular white change as well as white matter change. EEG with moderate diffuse disturbance. PT reports maximal to total assistance for bed mobility. OT and speech prescribed. Previous functional history as elicited from patient: 77-year-old right-handed white male who is lives and 2 floor home with . Retired. does the cooking, laundry, driving. Patient denies tobacco or alcohol history. Reports physical assistance for bathing, dressing, mobility with walker. Regular doctors Dr. Muniz. Review of Systems Review of systems: ENT: Denies sneezes or discharge. Eyes: Denies discharge or photophobia. Cardiac: Denies chest pain or palpitation. Pulmonary: Denies cough or shortness of breath. Gastrointestinal: Denies nausea, emesis, constipation, diarrhea. Genitourinary: Denies discharge or frequency. Musculoskeletal: Denies muscle or bone aches. Neurologic: Denies problems but has obvious speech disturbance and mild right- sided weakness. Endocrine: Denies shakes or sweats. Oncology: Denies cancers. Dermatologic: Denies rash, itching, pruritus. ALLERGY/immunology: Denies sneezes, rashes. Past Medical History Past Medical History: CVA/TIA, GI Bleed, Hyperlipidemia, Hypertension Additional Past Medical History / Comment(s): chronic back pain; cortisone injections for neck pain; gastric ulcer, right sided weakness due to CVA History of Any Multi-Drug Resistant Organisms: None Reported Past Surgical History: No Surgical Hx Reported Additional Past Surgical History / Comment(s): colonoscopy and EGD WITH POLYP REMOVAL Past Anesthesia/Blood Transfusion Reactions: No Reported Reaction Past Psychological History: Depression Smoking Status: Never smoker Past Alcohol Use History: None Reported Past Drug Use History: None Reported - Past Family History Father Family Medical History: Myocardial Infarction ([place]) Mother Family Medical History: No Reported History Additional Family Medical History / Comment(s): Pernicious anemia monitor and sister. Brother with Parkinson's Brother(s) Additional Family Medical History / Comment(s): parkinsons Sister(s) Family Medical History: Cancer Additional Family Medical History / Comment(s): breast cancer Medications and Allergies Home Medications Medication Instructions Recorded Confirmed Type Cholecalciferol [Vitamin D3] 2,000 unit PO DAILY@1200 01/03/16 12/14/16 History L.acidoph,Paracasei, B.lactis 1 cap PO PC-SUPPER 06/16/16 12/14/16 History [Probiotic] Acetaminophen Tab [Tylenol] 975 mg PO TID PRN 07/02/16 12/14/16 History Atorvastatin [Lipitor] 10 mg PO HS 07/02/16 12/14/16 History Aspirin 81 mg PO QAM 12/14/16 12/14/16 History Clopidogrel [Plavix] 75 mg PO QAM 12/14/16 12/14/16 History Dutasteride [Avodart] 0.5 mg PO PC-SUPPER 12/14/16 12/14/16 History Lisinopril [Zestril] 15 mg PO QAM 12/14/16 12/14/16 History Pantoprazole [Protonix] 40 mg PO QAM 12/14/16 12/14/16 History Polyethylene Glycol 3350 [Miralax] 17 gm PO QAM 12/14/16 12/14/16 History Sertraline [Zoloft] 100 mg PO QAM 12/14/16 12/14/16 History Vit C/E/Zn/Coppr/Lutein/Zeaxan 1 cap PO BID@1200,1800 12/14/16 12/14/16 History [Preservision Areds 2 Softgel] amLODIPine [Norvasc] 2.5 mg PO HS 12/14/16 12/14/16 History traMADol HCL [Ultram] 50 mg PO BID PRN 12/14/16 12/14/16 History Allergies Allergy/AdvReac Type Severity Reaction Status Date / Time No Known Allergies Allergy Verified 12/14/16 21:51 Physical Exam Vitals: Vital Signs Temp Pulse Resp BP BP Pulse Ox 12/19/16 07:49 97.5 F L 70 18 144/82 96 12/19/16 04:00 97.6 F 72 18 152/86 93 L 12/19/16 00:00 97.5 F L 65 18 151/73 93 L 12/18/16 19:51 18 12/18/16 19:45 97 F L 64 18 145/77 93 L 12/18/16 16:00 67 16 156/89 95 12/18/16 12:00 72 16 130/68 96 Intake and Output 12/18/16 12/19/16 12/19/16 22:59 06:59 14:59 Intake Total 240 Balance 240 Intake: Oral 240 Other: Voiding Method Urinal Urinal Diaper Diaper Incontinent Incontinent # Voids 1 1 # Bowel Movements 1 Weight 90 kg Skin: Good color, texture, turgor. General: Medium build and comfortable appearance. Head: Normocephalic, atraumatic. Eyes: Symmetric. Pupils equal round. Ears: Symmetric. Hearing within normal limits. Mouth: Clear. Neck: Supple. Carotid without bruit. Cardiac: Regular rate and rhythm. Lungs: Clear anteriorly and posteriorly. Abdomen: Soft active nontender. Extremities: Normal tone, in general. Neurological: Mental status: Alert, cooperative, pleasant. Low voice volume Cranial nerves: Symmetric facial tone and trapezius. Motor: Active movement all 4 limbs and ability elevate all limbs off of bed Sensation: Intact throughout. DTRs: Symmetric and equal throughout. Mobility: Bed mobility with maximal assistance. Results CBC & Chem 7: 12/19/16 05:30 12/19/16 05:30 Chest x-ray: report reviewed (Negative.) CT Scan - head: report reviewed (Age-related change only.) US - abdomen: report reviewed (Within normal limits.) MRI - head: report reviewed (Frontal periventricular change as well as diffuse white matter change) Assessment and Plan (1) Acute ischemic left MCA stroke Status: Acute Plan: Impression: 1. Gait disturbance. 2. Acute left sided stroke with result in mild right hemiparesthesias and aphasia. 3. Hypertension. 4. Dyslipidemia. 5. History of previous stroke. 6. History of GI bleed. Comments and plan: At this time PT, OT, PROTEIN CHEMIST ordered an PT at least ongoing. We will follow therapies with yourself. Would anticipate safety concerns. Must determine 's goals for posthospitalization stay.
[2016-12-19] MEDS: ASPIRIN 81 MG CHEW PO SCH (08:34)
[2016-12-19] MEDS: CLOPIDOGREL 75 MG TAB PO SCH (08:35)
[2016-12-19] MEDS: PANTOPRAZOLE 40 MG TABLET PO SCH (08:35)
[2016-12-19] MEDS: POLYETHYLENE GLYCOL 3350 17 GM POWD.PACK PO SCH (08:35)
[2016-12-19] MEDS: SERTRALINE 100 MG TAB PO SCH (08:35)
[2016-12-19] MEDS: LISINOPRIL 5 MG TAB PO SCH (08:35)
[2016-12-19] MEDS: HEPARIN SODIUM,PORCINE 5,000 UNIT/ML 1 ML VIAL SQ SCH ×2 (08:35→22:03)
[2016-12-19] MEDS: CHOLECALCIFEROL 1,000 UNIT TAB PO SCH (11:43)
[2016-12-19] MEDS: VIT A,C & E-LUTEIN-MINERALS 1 EACH TAB PO SCH ×2 (11:43→17:58)
--- NOTE | 2016-12-19 16:23 | P.PN ---
Subjective No events overnight Objective - Vital Signs Vital signs: Vital Signs Temp 97.0 F L 12/19/16 15:26 Pulse 88 12/19/16 15:26 Resp 18 12/19/16 15:26 BP 143/77 12/19/16 15:26 Pulse Ox 96 12/19/16 15:26 Intake & Output 12/18/16 12/19/16 12/19/16 18:59 06:59 18:59 Intake Total 480 555 Output Total 300 Balance 180 555 Weight 90 kg Intake: Oral 480 555 Output: Urine 300 Other: Voiding Method Urinal Urinal Diaper Diaper Diaper Incontinent Incontinent Incontinent # Voids 2 1 1 # Bowel Movements 1 1 - Exam General: The patient is awake and alert, in no distress Eye: there is normal conjunctiva bilaterally. Neck: The neck is supple, there is no JVD. Cardiovascular: Normal S1-S2, no S3-S4, no murmurs. Respiratory: Lungs clear to auscultation bilaterally Gastrointestinal: Abdomen is soft, nontender Musculoskeletal: There is no pedal edema. Neurological:. Speech is normal. Skin: Skin is warm and dry - Labs CBC & Chem 7: 12/19/16 05:30 12/19/16 05:30 Assessment and Plan Plan: 1. Right-sided weakness with speech difficulty likely due to a new CVA. Continue aspirin and Plavix. Computed tomography scan of the brain showed no acute changes. Consult neurology. Continue telemetry monitoring. Patient is remained in sinus rhythm. EKG showing normal sinus rhythm. Carotid ultrasound in May 2016 shows no significant hemodynamic stenosis echo May 2016 shows an EF of 55-60% with no significant valvular abnormality. Patient was seen by neurology they've ordered an EEG of the brain. We will order an MRI of the brain with contrast. PT OT and speech therapy consulted. will consult Dr Palacios for possible rehab admission 2. Previous history of CVA affecting the right side in June 2016 3. Essential hypertension: Blood pressure stable. continue lisinopril and Norvasc 4. Hyperlipidemia continue Lipitor 5. History of peptic ulcer disease continue Protonix awaiting placement
[2016-12-19] MEDS: LACTOBACILLUS ACIDOPH & BULGAR 1 EACH PACKET PO SCH (18:00)
[2016-12-19] MEDS: FINASTERIDE 5 MG TAB PO SCH (18:00)
[2016-12-19] MEDS: amLODIPine 2.5 MG TAB PO SCH (22:03)
[2016-12-19] MEDS: ATORVASTATIN 10 MG TAB PO SCH (22:03)
[2016-12-20] MEDS: SUCRALFATE 1 GM TAB PO SCH (06:39)
[2016-12-20] MEDS: LISINOPRIL 5 MG TAB PO SCH (09:00)
[2016-12-20] MEDS: ASPIRIN 81 MG CHEW PO SCH (09:01)
[2016-12-20] MEDS: HEPARIN SODIUM,PORCINE 5,000 UNIT/ML 1 ML VIAL SQ SCH (09:01)
[2016-12-20] MEDS: PANTOPRAZOLE 40 MG TABLET PO SCH (09:01)
[2016-12-20] MEDS: CLOPIDOGREL 75 MG TAB PO SCH (09:01)
[2016-12-20] MEDS: SERTRALINE 100 MG TAB PO SCH (09:02)
[2016-12-20] MEDS: POLYETHYLENE GLYCOL 3350 17 GM POWD.PACK PO SCH (09:02)
[2016-12-20] MEDS: CHOLECALCIFEROL 1,000 UNIT TAB PO SCH (12:23)
[2016-12-20] MEDS: VIT A,C & E-LUTEIN-MINERALS 1 EACH TAB PO SCH (12:23)
--- NOTE | 2016-12-20 13:36 | P.DS ---
Providers Date of admission: 12/14/16 20:27 Expected date of discharge: 12/20/16 Attending physician: Mrailia Deleon Consults: 12/15/16 10:01 Consult Physician Routine Consulting Provider: Kamaljit Barnes Consult Reason/Comments: worsening Right weakness, possible CVA Do you want consulting provider notified?: Yes 12/18/16 14:44 Consult Physician Routine Consulting Provider: Francis Palacios Consult Reason/Comments: possible rehab admission Do you want consulting provider notified?: Yes Primary care physician: [facility] Course: 1. Right-sided weakness with speech difficulty. With MRI showing evidence of subacute ischemia involving the left frontal lobe. Continue aspirin and Plavix. Computed tomography scan of the brain showed no acute changes. Patient was seen and evaluated by neurology. Carotid ultrasound in May 2016 shows no significant hemodynamic stenosis echo May 2016 shows an EF of 55-60% with no significant valvular abnormality. 2. Previous history of CVA affecting the right side in June 2016 3. Essential hypertension: Blood pressure stable. continue lisinopril and Norvasc 4. Hyperlipidemia continue Lipitor 5. History of peptic ulcer disease continue Protonix 6. Physical debility: Seen and evaluated here OT. Patient will be transferred to [facility] for rehab. Patient Condition at Discharge: Good Plan - Discharge Summary New Discharge Prescriptions: Continue Cholecalciferol [Vitamin D3] 2,000 unit PO DAILY@1200 L.acidoph,Paracasei, B.lactis [Probiotic] 1 cap PO PC-SUPPER Acetaminophen Tab [Tylenol] 975 mg PO TID PRN PRN Reason: Pain Atorvastatin [Lipitor] 10 mg PO HS Vit C/E/Zn/Coppr/Lutein/Zeaxan [Preservision Areds 2 Softgel] 1 cap PO BID@ 1200,1800 Polyethylene Glycol 3350 [Miralax] 17 gm PO QAM Aspirin 81 mg PO QAM Dutasteride [Avodart] 0.5 mg PO PC-SUPPER Clopidogrel [Plavix] 75 mg PO QAM Sertraline [Zoloft] 100 mg PO QAM Pantoprazole [Protonix] 40 mg PO QAM Lisinopril [Zestril] 15 mg PO QAM Changed amLODIPine [Norvasc] 5 mg PO HS #0 Discontinued traMADol HCL [Ultram] 50 mg PO BID PRN PRN Reason: Pain Discharge Medication List Cholecalciferol [Vitamin D3] 2,000 unit PO DAILY@1200 01/03/16 [History] L.acidoph,Paracasei, B.lactis [Probiotic] 1 cap PO PC-SUPPER 06/16/16 [History] Acetaminophen Tab [Tylenol] 975 mg PO TID PRN 07/02/16 [History] Atorvastatin [Lipitor] 10 mg PO HS 07/02/16 [History] Aspirin 81 mg PO QAM 12/14/16 [History] Clopidogrel [Plavix] 75 mg PO QAM 12/14/16 [History] Dutasteride [Avodart] 0.5 mg PO PC-SUPPER 12/14/16 [History] Lisinopril [Zestril] 15 mg PO QAM 12/14/16 [History] Pantoprazole [Protonix] 40 mg PO QAM 12/14/16 [History] Polyethylene Glycol 3350 [Miralax] 17 gm PO QAM 12/14/16 [History] Sertraline [Zoloft] 100 mg PO QAM 12/14/16 [History] Vit C/E/Zn/Coppr/Lutein/Zeaxan [Preservision Areds 2 Softgel] 1 cap PO BID@1200, 1800 12/14/16 [History] amLODIPine [Norvasc] 5 mg PO HS #0 12/20/16 [Rx] Follow up Appointment(s)/Referral(s): Angle Muniz DO [Primary Care Provider] - 1-2 days Patient Instructions/Handouts: Ischemic Stroke (DC) Activity/Diet/Wound Care/Special Instructions: Pulse was encouraged to increase dehydration his blood pressure slightly in the lower side and return to the ER if symptoms get worse or he develops high fever Discharge Disposition: TRANSFER TO SNF/ECF
[2016-12-20] MEDS: ONDANSETRON 4 MG/2 ML VIAL IVP PRN (15:06)
[2016-12-20 15:51] VITALS: BP 132/75; PULSE 78; RESP 18; TEMP 98.8
== END 2016-12-20 15:59 | DRG 65 ==
LOC: EC 16:03 → INTOOBSV 20:27 → 3OBS 20:27 → OBSVTOIN 20:27 → INTOOBSV 12-15 10:05 → 6SEL 12-15 11:55
PROVIDERS: ADMIT Internal Medicine; ATTEND Internal Medicine
DX: I63.512 Cerebral infarction due to unspecified occlusion or stenosis of left middle cerebral artery (principal); G81.91 Hemiplegia, unspecified affecting right dominant side; I69.351 Hemiplegia and hemiparesis following cerebral infarction affecting right dominant side; R47.01 Aphasia; I10 Essential (primary) hypertension; E78.5 Hyperlipidemia, unspecified; G89.29 Other chronic pain; M54.2 Cervicalgia; M54.9 Dorsalgia, unspecified; F32.9 Major depressive disorder, single episode, unspecified; Z79.82 Long term (current) use of aspirin; Z79.02 Long term (current) use of antithrombotics/antiplatelets; Z79.899 Other long term (current) drug therapy; Z87.11 Personal history of peptic ulcer disease; Z82.0 Family history of epilepsy and other diseases of the nervous system
CPT/HCPCS: 36415; 70450; 70553; 71020; 76700; 80053; 80061; 81003; 82150; 82550; 82553; 83690; 84484; 85025; 85610; 85730; 93005; 95819; 96361; 96374; 99285

== ENCOUNTER → 2017-07-22 | Outpatient (CLI) | payer MEDICARE ==
--- NOTE | 2017-07-23 07:46 | MR ---
EXAMINATION TYPE: MR angio head wo/neck wo/w con DATE OF EXAM: 07/22/2017 COMPARISON: NONE HISTORY: Stroke TECHNIQUE: Time of flight images focusing on the [place] were performed without contrast.. 2-D and 3-D postprocessing imaging is performed. FINDINGS: [place]: Vertebral arteries are codominant. Distal internal carotid arteries bifur joão into A1 and M1 segments anterior communicating artery is not identified. Posterior communicating arteries are not identified. Posterior cerebral vasculature appears normal. Middle cerebral artery b ranches are unremarkable. Carotid bifurcations: MRI of the neck is performed. There is some motion artifact present. Vertebral arteries appear codominant. Common carotid arteries appear normal to the bifurcations. Bifurcations i nto internal and external carotid arteries appear normal. No significant stenosis is evident. Distal internal carotid arteries. IMPRESSION: 1. No significant stenosis at the carotid bifurcations. 2. [place] appears within normal limits
== END | disposition home or self-care (01) ==
LOC: RADMRIMAIN 11:42
PROVIDERS: ATTEND Psychiatry & Neurology Neurology
DX: I63.9 Cerebral infarction, unspecified (principal)
CPT/HCPCS: 70544; 70549; A9577

== ENCOUNTER → 2017-09-21 | Outpatient (CLI) | payer MEDICARE ==
--- NOTE | 2017-10-23 14:44 | EM ---
EVENT MONITOR AGE:: 72 SEX:: M INDICATIONS:: Patient was monitored between September 21 and October 20, 2017. The paced rhythm is sinus mechanism with episode of sinus tachycardia and intraventricular conduction delay. There was no episode of atrial fibrillation or malignant arrhythmia noted. TAL / PIPO: [id number] /
== END | disposition home or self-care (01) ==
LOC: RADECHMAIN 12:11
PROVIDERS: ATTEND Psychiatry & Neurology Neurology
DX: R00.0 Tachycardia, unspecified (principal)
CPT/HCPCS: 93270; 93271